=== PATIENT | female | born 1935 | race Caucasian/White ===

== ENCOUNTER 2018-05-11 19:58 | Emergency (ER) | payer MEDICARE, SELFPAY ==
[2018-05-11 20:00] VITALS: BP 112/62; PULSE 56; RESP 18; TEMP 36.5; O2SAT 97; BMI 23.6
[2018-05-11 21:12] VITALS: RESP 16
[2018-05-11 21:13] LABS: Bacteria 0 SEEN /hpf (None Seen); Mucous, Urine 0 SEEN /hpf (<or=2+); Red Blood Cells-Urine 0 SEEN /hpf (0-5)
[2018-05-11 21:32] LABS: Color, Urine Yellow (Yellow); Glucose, Dipstick Normal (Normal); Ketone-Dipstick Negative (Negative); Leukocyte Esterase-Dipstick 500 /ul (Negative); Nitrite-Dipstick Negative (Negative); Occult Blood-Urine Negative /ul (Negative); Protein-Dipstick Negative (Negative); Urine Bilirubin Dipstick Negative (Negative); Urine Urobilinogen Normal (Normal)
--- NOTE | 2018-05-11 21:37 | ED.DCSUM_ITS ---
- ER Visit Summary Date of Service: 05/11/18 Chief Complaint: Dysuria History of Present Illness: The patient is a 82 F who has 2 weeks of dysuria. She states is been intermittent. She denies any abdominal pain but that she has had some frequency intermittently as well. She has no fevers. 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 She sees Dr. Rebollar for this. She is not on dialysis. Physical Examination: Vital signs reviewed. HEENT exam unremarkable. Heart is regular rate and rhythm without murmurs. Lungs are clear to auscultation. Abdomen is soft and nontender. Extremities reveal no edema. Skin exam normal. Neurologic exam normal. Test Results: Urinalysis reveals 2+ leukocytes and 10-25 white blood cells Emergency Department Course and Treatment: Patient appears to have UTI. We treated with Keflex. Urine culture will be sent Treatment Plan: [] Disposition: Discharge Impression: UTI This note was generated with [employer] dictation software. It may contain incorrect words, spelling, and punctuation that were not noted in review of the chart prior to signing ED Disposition - Plan for ED Patient: Chief Complaint: Complaint Referrals: Mike Pat DO [Primary Care Provider] -
[2018-05-11 21:41] LABS: Urine Clarity Sl. Cloudy (Clear)
[2018-05-11 21:43] LABS: Amorphous Sediment 1+ URATE; Squamous Epithelial Cells - UA 0-5 SEEN /hpf (5-10); White Blood Cells 10-25 SEEN /hpf (0-5)
--- NOTE | 2018-05-11 21:50 | ED.DEP ---
ED Disposition - Plan for ED Patient: Disposition: Home or Assisted Living Chief Complaint: Complaint Instructions: ED UTI Cystitis Female Prescriptions: Cephalexin [Keflex] 500 mg PO BID #10 cap Referrals: Mike Pat DO [Primary Care Provider] -
[2018-05-11] MEDS: Cephalexin 250 MG Capsule 500 MG PO (22:01)
[2018-05-11 22:02] VITALS: PULSE 60; RESP 20; O2SAT 96
== END 2018-05-11 22:03 | disposition home or self-care (01) ==
PROVIDERS: Emergency Provider Emergency Medicine; Family Provider Family Medicine; PCP Family Medicine
DX: N39.0 Urinary tract infection, site not specified (principal); I77.6 Arteritis, unspecified; I10 Essential (primary) hypertension; Z79.899 Other long term (current) drug therapy
CPT/HCPCS: 81001; 87086; 87088; 99283

== ENCOUNTER → 2018-05-19 10:32 | Outpatient (CLI) | payer MEDICARE, SELFPAY ==
[2018-05-19 11:10] LABS: Mucous, Urine 0 SEEN /hpf (<or=2+); Red Blood Cells-Urine 0 SEEN /hpf (0-5); Squamous Epithelial Cells - UA 0 SEEN /hpf (5-10)
[2018-05-19 11:15] LABS: Color, Urine Yellow (Yellow); Glucose, Dipstick Normal (Normal); Ketone-Dipstick Negative (Negative); Leukocyte Esterase-Dipstick 25 /ul (Negative); Nitrite-Dipstick Negative (Negative); Occult Blood-Urine Negative /ul (Negative); Protein-Dipstick 15 mg/dl (Negative); Urine Bilirubin Dipstick Negative (Negative); Urine Clarity Sl. Cloudy (Clear); Urine Urobilinogen Normal (Normal); Urine pH 6.5 (5.0 - 8.0)
[2018-05-19 11:24] LABS: Bacteria 1+ /hpf (None Seen); White Blood Cells 0-5 SEEN /hpf (0-5)
== END ==
PROVIDERS: Family Provider Family Medicine; PCP Family Medicine; Visit Provider Nurse Practitioner Family
DX: R30.0 Dysuria (principal); N05.9 Unspecified nephritic syndrome with unspecified morphologic changes
CPT/HCPCS: 81001; 87086; 87088

== ENCOUNTER → 2018-12-05 10:35 | Outpatient (CLI) | payer MEDICARE, SELFPAY ==
[2018-12-05 10:01] VITALS: BMI 21.7
[2018-12-05 12:26] LABS: Absolute Lymphocyte Count 0.72 X10^3/ul (0.83-4.51); Absolute Neutrophil Count 2.9 X10^3/uL (2.0-7.7); Basophil# 0.01 X10^3/uL; Basophil% 0.2 % (0-1); Eosinophil# 0.05 X10^3/uL; Eosinophils% 1.2 % (0-5); Hemoglobin 10.6 g/dl (12.0-15.0); Lymphocyte # 0.72 X10^3/ul (4.0); Lymphocyte % 17.8 % (19-41); Mean Corp Hgb Conc 34.2 g/gl (32-36); Mean Corpuscular Hgb 33.9 pg (27.0-32.0); Mean Platelet Vol. 10.4 fl (6.2-12.0); Monocyte# 0.38 X10^3/uL; Monocyte% 9.4 % (0-10); Neutrophil # 2.87 X10^3/uL (2.7-7.7); Neutrophil % 71.2 % (47-70); Platelet Count 180 K/mm3 (150-450); RBC Distribution Width SD 48.2 fl (35.1-43.9); Red Blood Count 3.13 M/mm3 (4.2-5.4)
[2018-12-05 12:27] LABS: Anion Gap 4 (5-15); BUN 35 mg/dL (7-18); BUN/Creat Ratio 18.7 RATIO (10-20); Calcium,Total 8.8 mg/dL (8.5-10.1); Chloride 108 mmol/L (98-107); Creatinine, Serum 1.87 mg/dL (0.55-1.02); EST Glomerular Filtration Rate 27 mL/min (>60); Est Glom Filt Rate - Afr Amer 33 mL/min (>60); Glucose 104 mg/dL (74-106); POSITIVE COUNT NO; POSITIVE DIFFERENTIAL NO; POSITIVE MORPHOLOGY NO; Potassium 4.7 mmol/L (3.5-5.1); Sodium Level 134 mmol/L (136-145)
== END ==
PROVIDERS: Family Provider Family Medicine; PCP Family Medicine; Visit Provider Family Medicine
DX: I10 Essential (primary) hypertension (principal); N28.9 Disorder of kidney and ureter, unspecified
CPT/HCPCS: 36415; 80048; 85025

== ENCOUNTER 2019-04-02 21:31 | Inpatient (IN) | payer MEDICARE, SELFPAY ==
[2018-12-05 10:01] VITALS: BMI 21.7
[2019-04-02 21:32] VITALS: BP 122/62; PULSE 99; RESP 18; TEMP 36.1; O2SAT 98; BMI 22.3
--- NOTE | 2019-04-02 23:03 | EKG12_ITS ---
Test Reason : Blood Pressure : / mmHG Vent. Rate : 091 BPM Atrial Rate : 091 BPM P-R Int : 166 ms QRS Dur : 072 ms QT Int : 366 ms P-R-T Axes : -09 018 033 degrees QTc Int : 450 ms Sinus rhythm with marked sinus arrhythmia with occasional Premature ventricular complexes Nonspecific ST abnormality Abnormal ECG Confirmed by WALKER OVIEDO, SALLY ([id number]), international editorial producer JUDITH TAYLOR ([id number]) on 04/04/2019 10:14:59 AM Referred By: Jerald Kohli Confirmed By:SALLY CARDOSO MD
--- NOTE | 2019-04-02 23:04 | ED.VISSUMM ---
- ER Visit Summary Date of Service: 04/02/19 Chief Complaint: Abdominal pain History of Present Illness: The patient is a 83 F presenting with abdominal pain. Patient states this started yesterday. She has had nausea and vomiting. She denies diarrhea or constipation. Denies blood in her stool. She denies dysuria but states she has had decreased urination. She denies fever. Denies chest pain or shortness of breath. States she was previously on dialysis and has not had it for 4 years. History of previous appendectomy and hysterectomy. Physical Examination: Vitals are stable. Patient is afebrile. Alert no acute distress. HEENT exam is unremarkable. Neck is supple. Lungs are clear and equal bilaterally. Heart is regular rate and rhythm. Abdomen is soft diffuse tenderness with no rebound or guarding Extremities are unremarkable. Skin is warm and dry. No focal neurologic deficit. Remainder of exam is unremarkable. Emergency Department Course and Treatment: Patient given IV fluids, Zofran. CBC shows hemoglobin 11.5, platelet 133. Chemistries show BUN 54, creatinine 2.95. Previous creatinine 1.87 on December 05. Liver lipase are normal. Troponin is negative. CT abdomen/pelvis shows renal atrophy right greater than left. No hydronephrosis. Old granulomatous disease. Minimal pericardial effusion. Mild gastric wall thickening versus lack of distention. Discussed with the hospitalist for admission. Hospitalist requests Rocephin IV. Urine culture was sent. Disposition: Admission Impression: AIDEN This note was generated with [employer] dictation software. It may contain incorrect words, spelling, and punctuation that were not noted in review of the chart prior to signing ED Disposition - Plan for ED Patient: Referrals: Mike Pat DO [Primary Care Provider] -
[2019-04-02 23:12] LABS: Absolute Lymphocyte Count 0.69 X10^3/uL (0.83-4.51); Absolute Neutrophil Count 8.7 X10^3/uL (2.0-7.7); Basophil# 0.01 X10^3/uL; Basophil% 0.1 % (0-1); Eosinophil# 0.02 X10^3/uL; Eosinophils% 0.2 % (0-5); Hemoglobin 11.5 g/dL (12.0-15.0); Lymphocyte # 0.69 X10^3/ul (4.0); Lymphocyte % 6.6 % (19-41); Mean Corp Hgb Conc 34.8 g/dL (32-36); Mean Corpuscular Hgb 35.2 pg (27.0-32.0); Mean Corpuscular Volume 100.9 fL (81-99); Mean Platelet Vol. 9.8 fl (6.2-12.0); Monocyte# 0.97 X10^3/uL; Monocyte% 9.3 % (0-10); NRBC Flagged by Analyzer 0 % (0-5); Neutrophil # 8.67 X10^3/uL (2.7-7.7); Neutrophil % 83.2 % (47-70); Platelet Count 133 K/mm3 (150-450); RBC Distribution Width CV 14.5 % (11.6-14.6); Red Blood Count 3.27 M/mm3 (4.2-5.4); White Blood Count 10.4 K/mm3 (4.4-11.0)
[2019-04-02] MEDS: Ondansetron 4 MG/2 ML Vial IV (23:15)
[2019-04-02 23:27] LABS: ALB/GLOB Ratio 1.1 RATIO (0.9-2.4); AST(SGOT) 17 U/L (15-37); Alanine Aminotransfer ALT/SGPT 16 U/L (13-56); Albumin, Serum 3.8 g/dL (3.2-5.0); Alkaline Phosphatase 33 U/L (45-117); Anion Gap 11 (5-15); BUN 54 mg/dL (7-18); BUN/Creat Ratio 18.3 RATIO (10-20); Chloride 100 mmol/L (98-107); Creatinine, Serum 2.95 mg/dL (0.55-1.02); EST Glomerular Filtration Rate 16 mL/min (>60); Est Glom Filt Rate - Afr Amer 20 mL/min (>60); Estimated Creatinine Clearance 11.09 ml/min; Globulin 3.6 g/dL (2.2-4.2); Glucose 108 mg/dL (74-106); Lipase 177 U/L (73-393); Potassium 3.9 mmol/L (3.5-5.1); Protein, Total 7.4 g/dL (6.4-8.2); Sodium Level 132 mmol/L (136-145)
[2019-04-03] VITALS (8 sets, daily range): BP systolic 134–158; BP diastolic 71–87; PULSE 61–98; RESP 15–24; TEMP 36.4–37.1; O2SAT 95–100; BMI 20.9
[2019-04-03 00:31] LABS: Bacteria 0 SEEN /hpf (None Seen); Mucous, Urine 0 SEEN /hpf (<or=2+)
[2019-04-03 00:32] LABS: Color, Urine Yellow (Yellow); Glucose, Dipstick Normal (Normal); Ketone-Dipstick Negative (Negative); Leukocyte Esterase-Dipstick 100 /ul (Negative); Nitrite-Dipstick Negative (Negative); Occult Blood-Urine 50 /ul (Negative); Protein-Dipstick 15 mg/dl (Negative); Specific Gravity, Urine 1.015 (1.002-1.030); Urine Bilirubin Dipstick Negative (Negative); Urine Clarity Sl. Cloudy (Clear); Urine Urobilinogen Normal (Normal)
[2019-04-03 00:51] LABS: Squamous Epithelial Cells - UA 0-5 SEEN /hpf (5-10); White Blood Cells 0-5 SEEN /hpf (0-5)
[2019-04-03 00:52] LABS: Red Blood Cells-Urine 0-5 SEEN /hpf (0-5); Transitional Epithelial - Ur 0-5 SEEN /hpf (0-5)
--- NOTE | 2019-04-03 02:19 | PCM.HP.STD ---
Problem List (1) AIDEN (acute kidney injury) Status: Acute (2) Cystitis Status: Acute (3) Acute respiratory failure with hypoxia Status: Resolved (4) s/p rapid response Status: Inactive History of Present Illness Date of Admission: 04/03/19 Chief Complaint: abdominal pain The patient is a 83 year old F with a significant history of glomera nephritis; and CKD who presented to the emergency department with 1 day history of abdominal pain. She describes abdominal pain as diffuse. She currently rates this pain as aching. The pain is nonradiating. The pain worsens with walking and it improves with lying down. Associated with symptoms is nausea, vomiting and anorexia. Also she reports increased fluid intake with decreased urination. Past Medical History Past Medical History (Chronic Problems): Chronic Problems (Last Reviewed 04/03/19 @ 06:55 by Jerald Kohli MD) Left-sided tinnitus (Chronic) Vertigo (Chronic) Anxiety (Chronic) Hypertension (Chronic) Kidney disease (Chronic) Hypertension (Chronic) Glomerulonephritis (Chronic) Medical History: Medical History (Last Reviewed 04/03/19 @ 06:58 by Jerald Kohli MD) Anxiety (Chronic) F41.9 Hypertension (Chronic) I10 Kidney disease (Chronic) N28.9 Allergies Tetanus Vaccines and Toxoid [Tetanus Vaccines & Toxoid] Allergy (Verified 04/02/19 21:32) Unknown HORSE SERUM TETNUS Home Medications: Ambulatory Orders Medication Instructions Recorded sertraline 50 mg tablet 75 mg PO DAILY #90 tab 12/05/18 Azathioprine [Imuran] 50 mg PO DAILY@0800 04/02/19 Liothyronine/Levothyroxin 1 tab PO DAILY 04/02/19 Metoprolol Tartrate [Lopressor 25 mg PO DAILY PRN 04/02/19 (beta po)] Pantoprazole Sodium [Protonix] 40 mg PO DAILY 04/02/19 Prasterone (Dhea)/Calcium Carb 10 mg PO DAILY 04/02/19 [Dhea 10 mg Tablet] Surgical History: Surgical History (Last Reviewed 04/03/19 @ 06:55 by Jerald Kohli MD) History of hysterectomy Z90.710 2014 Surgical History: hysterectomy, - - renal bx 02/2014 Psychiatric History: No pertinent psych hx [employer]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 Denies: Chills, Fever, Weight Change HEENT: Denies: Head Aches, Sinus Congestion, Sinus Drainage Cardiovascular: Denies: Chest Pain, Palpitations Respiratory: Denies: Cough, Shortness of breath at rest, Sputum production Gastrointestinal: Reports: Abdominal Pain, Nausea, Vomiting Genitourinary: Reports: Frequency - Decrease frequency of urination/urinary amount.. Denies: Dysuria Musculoskeletal: Denies: Joint Pain, Joint Tenderness Skin: Denies: Rash, Wounds Neurological: Denies: Numbness, Tingling, Focal weakness Psychiatric: Denies: Anxiety, Depression, Homicidal Ideations, Suicidal Ideations Hematologic/ Lymphatic: Denies: Easy Bruising, Easy Bleeding VTE Information - Inpt Only VTE Present on Admission: No VTE Mechan Device Prophylaxis: SCD's VTE Pharm Prophylaxis ordered?: Yes Patient Problems: Active and Suspected Problems (Last Reviewed 04/03/19 @ 06:55 by Jerald Kohli MD) AIDEN (acute kidney injury) (Acute) Cystitis (Acute) - Physical Exam General: Alert, Oriented x3, Cooperative HEENT: Atraumatic, PERRLA, EOMI, Normocephalic Neck: Supple, No JVD, Negative Carotid Bruits Lungs: Clear to auscultation, Normal air movement Cardiovascular: Regular rate, No murmurs Abdomen: Bowel Sounds Present, Soft, Tender Extremities: No edema, Capillary Refill Less than 3 Seconds Skin: No rashes, No breakdown Musculoskeletal: No Tenderness to Palpation of Joints or Extremities Neurological: Cranial nerves II-XII grossly intact Psych/Mental Status: Normal Affect, Appropriate Vital Signs Temp Pulse Resp BP Pulse Ox 97.5 F L 61 15 134/71 H 100 04/03/19 02:05 04/03/19 02:05 04/03/19 02:05 04/03/19 02:05 04/03/19 02:05 Oxygen Delivery Method Room Air Weight: 53.524 kg Body Mass Index (BMI) 22.3 Finger Stick Blood Glucose 130 Laboratory Tests Past 24 Hrs 04/02/19 04/02/19 04/03/19 22:25 22:25 00:20 WBC 10.4 RBC 3.27 L Hgb 11.5 L Hct 33.0 L MCV 100.9 H MCH 35.2 H MCHC 34.8 RDW Std Deviation 54.0 H RDW Coeff of Obey 14.5 Plt Count 133 L MPV 9.8 Immature Gran % (Auto) 0.600 Neut % (Auto) 83.2 H Lymph % (Auto) 6.6 L [place] % (Auto) 9.3 Eos % (Auto) 0.2 Baso % (Auto) 0.1 Absolute Neuts (auto) 8.7 H Absolute Lymphs (auto) 0.69 L Nucleated RBC % 0 Sodium 132 L Potassium 3.9 Chloride 100 Carbon Dioxide 21.0 Anion Gap 11 BUN 54 H Creatinine 2.95 H Estim Creat Clear Calc 11.09 Est GFR (MDRD) Af Amer 20 L Est GFR (MDRD) Non-Af 16 L BUN/Creatinine Ratio 18.3 Glucose 108 H Calcium 9.0 Total Bilirubin 0.70 AST 17 ALT 16 Alkaline Phosphatase 33 L Troponin I < 0.015 Total Protein 7.4 Albumin 3.8 Globulin 3.6 Albumin/Globulin Ratio 1.1 Lipase 177 Urine Color Yellow Urine Clarity Sl. Cloudy Urine pH 6.0 Ur Specific [place] 1.015 Urine Protein 15 H Urine Glucose (UA) Normal Urine Ketones Negative Urine Occult Blood 50 H Urine Nitrite Negative Urine Bilirubin Negative Urine Urobilinogen Normal Ur Leukocyte Esterase 100 H Urine RBC 0-5 SEEN Urine WBC 0-5 SEEN Ur Squamous Epith Cells 0-5 SEEN Ur Transition Epith Cell 0-5 SEEN Urine Bacteria 0 SEEN Urine Mucus 0 SEEN Assessment/Plan All Active Problems (Last Reviewed 04/03/19 @ 06:55 by Jerald Kohli MD) AIDEN (acute kidney injury) (Acute) Cystitis (Acute) Acute renal failure syndrome (Acute) Acute respiratory failure with hypoxia (Resolved) The patient is a 83 year old F with a significant history of glomera nephritis; and CKD who presented to the emergency department with abdominal pain; decreased urination; nausea and vomiting with abnormal urinalysis consistent with probable acute cystitis. Probable acute cystitis Different diagnoses include gastroenteritis. Urinalysis was positive for occult blood; leukocyte esterase and protein. Importantly nitrite was negative; and urine bacteria was not seen. Of note patient has CKD. However because of the patient's abdominal symptoms discussed emergency department doctor to start patient on Rocephin. We will continue Rocephin. Urine cultures are pending. AIDEN on CKD Admission her creatinine was 2.95 Last creatinine about 4 months ago was 1.87. BUN over creatinine is 18.3. Likely prerenal from dehydration secondary to vomiting. However cannot rule out AIDEN secondary to UTI. Received IV fluids in the emergency department. We will continue patient on IV fluids. CKD with history of glomerulonephritis Azathioprine continued. Pericardial effusion Per imaging Mild with no symptoms Hypertension On presentation her blood pressure was stable in regard to age Metoprolol continue Trend blood pressure and adjust blood pressure medications. Hypothyroidism Thyroid medication continued GERD Protonix continued DVT prophylaxis Subcutaneous heparin ordered Code Visit Inpatient E&M: 35716 Init Hosp L3
[2019-04-03] MEDS: Ceftriaxone 1 GM/50 ML BAG IV ×2 (02:35→21:18)
[2019-04-03] MEDS: Acetaminophen 325 MG Tablet 650 MG PO (03:38)
[2019-04-03] MEDS: 0.9% Normal Saline 1,000 ML 75 ML IV (03:39)
[2019-04-03] MEDS: THYROID 90 MG PO (06:08)
[2019-04-03 06:42] LABS: Anion Gap 11 (5-15); BUN 46 mg/dL (7-18); BUN/Creat Ratio 19.1 RATIO (10-20); Calcium,Total 8.3 mg/dL (8.5-10.1); Chloride 105 mmol/L (98-107); Creatinine, Serum 2.41 mg/dL (0.55-1.02); EST Glomerular Filtration Rate 20 mL/min (>60); Est Glom Filt Rate - Afr Amer 25 mL/min (>60); Estimated Creatinine Clearance 14.23 ml/min; Glucose 82 mg/dL (74-106); Potassium 3.6 mmol/L (3.5-5.1); Sodium Level 137 mmol/L (136-145)
[2019-04-03] MEDS: Sertraline 50 MG Tablet 75 MG PO (08:09)
[2019-04-03] MEDS: Pantoprazole Sodium 40 MG Tablet PO (08:09)
[2019-04-03] MEDS: Heparin Injection (Vial) 5,000 UNIT/ML VIAL 5000 UNIT SC ×2 (08:09→21:24)
[2019-04-03] MEDS: azaTHIOprine 50 MG Tablet PO (08:10)
--- NOTE | 2019-04-03 10:58 | CASEMGMT ---
RN CM Assessment Presentation: AIDEN, cystitis Intro role of CM and purpose of RN CM assessment to patient who is awake, alert and able to participate in assessment. Demographics, PCP and Pharmacy verified. Pt states she is independent at home, does not use ambulatory DME and cares for self. She is anxious to return home. RN CM discussed pt will need treatment continued through tomorrow due to awaiting cultures. No concerns re: dc planning. PCP: Dr. Mike Pat Specialists: Dr. Ana Rebollar, nephrology Preferred Pharmacy: [facility] Insurance: [facility] Prescription Benefit: yes LNOK: Son Luis Rosales Living Arrangements: Lives in one story home independently. States her sons are available to assist. Pt states she is independent with ADL's, cooking. Transportation: Family drives DME: denies using ambulatory devices, but has walker, cane from her who is . HHC: none Patient DC goals: Home with family support DC PLAN: Home. Juan BARFIELD RN ACM
--- NOTE | 2019-04-03 16:08 | PCM.PN.HOSP ---
Patient Problems: Active and Suspected Problems (Last Reviewed 04/03/19 @ 06:58 by Jerald Kohli MD) AIDEN (acute kidney injury) (Acute) Cystitis (Acute) Subjective: Doing well, pain is much improved Vitals/I&O's: Vital Signs Temp Pulse Resp BP Pulse Ox 97.7 F L 93 18 158/87 H 99 04/03/19 14:07 04/03/19 14:07 04/03/19 14:07 04/03/19 14:07 04/03/19 14:07 Oxygen Delivery Method Room Air Weight: 114 lb 3.191 oz Body Mass Index (BMI) 20.9 Finger Stick Blood Glucose 130 Intake and Output for Last 24 Hours 04/01/19 04/02/19 04/03/19 23:59 23:59 23:59 Intake Total 1218 / 1218 Output Total 800 / 800 Balance 418 / 418 General: Alert, Oriented x3, Cooperative, No apparent distress HEENT: Atraumatic, PERRLA, EOMI, Normocephalic Oral: Moist Mucosa Neck: Supple, No JVD Lungs: Clear to auscultation, Normal air movement, No rhonchi, No wheeze, No rales, Diminished Cardiovascular: Regular rate, Regular Rhythm, Normal S1, Normal S2, No murmurs Abdomen: Soft, Non-Distended, No Hepato-splenomegaly, Tender - Mild and bilateral lower quadrant Extremities: No edema, Capillary Refill Less than 3 Seconds Skin: No rashes, No breakdown Neurological: Neuro grossly intact, Sensory exam intact to light touch and pain Psych/Mental Status: Normal Affect, Appropriate Laboratory Results 04/02/19 22:25: WBC 10.4, RBC 3.27 L, Hgb 11.5 L, Hct 33.0 L, MCV 100.9 H, MCH 35.2 H, MCHC 34.8, RDW Std Deviation 54.0 H, RDW Coeff of Obey 14.5, Plt Count 133 L, MPV 9.8, Immature Gran % (Auto) 0.600, Neut % (Auto) 83.2 H, Lymph % (Auto) 6.6 L, [place] % (Auto) 9.3, Eos % (Auto) 0.2, Baso % (Auto) 0.1, Absolute Neuts (auto) 8.7 H, Absolute Lymphs (auto) 0.69 L, Nucleated RBC % 0 04/02/19 22:25: Sodium 132 L, Potassium 3.9, Chloride 100, Carbon Dioxide 21.0, Anion Gap 11, BUN 54 H, Creatinine 2.95 H, Estim Creat Clear Calc 11.09, Est GFR (MDRD) Af Amer 20 L, Est GFR (MDRD) Non-Af 16 L, BUN/Creatinine Ratio 18.3, Glucose 108 H, Calcium 9.0, Total Bilirubin 0.70, AST 17, ALT 16, Alkaline Phosphatase 33 L, Troponin I < 0.015, Total Protein 7.4, Albumin 3.8, Globulin 3.6, Albumin/Globulin Ratio 1.1, Lipase 177 04/03/19 00:20: Urine Color Yellow, Urine Clarity Sl. Cloudy, Urine pH 6.0, Ur Specific [place] 1.015, Urine Protein 15 H, Urine Glucose (UA) Normal, Urine Ketones Negative, Urine Occult Blood 50 H, Urine Nitrite Negative, Urine Bilirubin Negative, Urine Urobilinogen Normal, Ur Leukocyte Esterase 100 H, Urine RBC 0-5 SEEN, Urine WBC 0-5 SEEN, Ur Squamous Epith Cells 0-5 SEEN, Ur Transition Epith Cell 0-5 SEEN, Urine Bacteria 0 SEEN, Urine Mucus 0 SEEN 04/03/19 05:50: Sodium 137, Potassium 3.6, Chloride 105, Carbon Dioxide 21.0, Anion Gap 11, BUN 46 H, Creatinine 2.41 H, Estim Creat Clear Calc 14.23, Est GFR (MDRD) Af Amer 25 L, Est GFR (MDRD) Non-Af 20 L, BUN/Creatinine Ratio 19.1, Glucose 82, Calcium 8.3 L Current Medications Acetaminophen (Tylenol) 650 mg PO Q6H PRN PRN PRN Reason: Mild Pain (1-3)/Temp > 100.7 F Last Admin: 04/03/19 03:38 Dose: 650 mg Documented by: Azathioprine (Imuran) 50 mg PO DAILY@0800 [facility] Last Admin: 04/03/19 08:10 Dose: 50 mg Documented by: Dextrose (D50w Syringe) 0 gm IV X1 PRN; Protocol PRN Reason: Hypoglycemia Glucagon () 1 mg IM .X1 PRN PRN Reason: Hypoglycemia Heparin Sodium (Porcine) (Heparin Na) 5,000 unit SC Q12 [facility] Last Admin: 04/03/19 08:09 Dose: 5,000 unit Documented by: Sodium Chloride () 1,000 mls @ 75 mls/hr IV .[id number] [facility] Stop: 04/03/19 16:17 Last Admin: 04/03/19 03:39 Dose: 75 mls/hr Documented by: Ceftriaxone Sodium (Rocephin) 1 gm in 50 mls @ 100 mls/hr IV Q24H [facility] Metoprolol Tartrate (Lopressor (Beta Kailash)) 25 mg PO DAILY PRN PRN Reason: HEADACHE Morphine Sulfate () 2 mg IV Q3H PRN PRN PRN Reason: Severe pain (7-10/10) Nutritional Formula (Lactose Free) (Ensure Enlive) 120 ml PO 4X/DAY [facility] Last Admin: 04/03/19 13:57 Dose: Not Given Documented by: Ondansetron HCl (Zofran) 4 mg IV Q8H PRN PRN PRN Reason: NAUSEA/VOMITING Oxycodone HCl (Oxyir) 5 mg PO Q4H PRN PRN PRN Reason: Moderate Pain (4-6/10) Pantoprazole Sodium (Protonix) 40 mg PO DAILY [facility] Last Admin: 04/03/19 08:09 Dose: 40 mg Documented by: Sertraline HCl (Zoloft) 75 mg PO DAILY [facility] Last Admin: 04/03/19 08:09 Dose: 75 mg Documented by: Sodium Chloride () 10 - 40 ml IV UD PRN PRN Reason: SALINE FLUSH Thyroid 30 mg/ Thyroid 60 mg 90 mg PO DAILY@0600 [facility] Last Admin: 04/03/19 06:08 Dose: 90 mg Documented by: Medical Necessity - Tobacco Use Smoking Status: Never smoker Assessment/Plan All Active Problems (Last Reviewed 04/03/19 @ 06:58 by Jerald Kohli MD) AIDEN (acute kidney injury) (Acute) Cystitis (Acute) Acute renal failure syndrome (Acute) Acute respiratory failure with hypoxia (Resolved) 1. Gastritis -She states that she ate cereal with him Tuesday and then 2 hours later through Tuesday she was having cramping abdominal pain that did improve a little bit with bowel movements on Tuesday which she had to have. She states that her pain is a lot better today -She ate breakfast and lunch today and did okay -Unlikely to be a UTI since she has had them in the past and they have always burned with urination and she does not have any dysuria currently -We will continue Rocephin for now and await urine cultures -She is feeling much better we will plan on discharge tomorrow 2. 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 HTN -Blood pressure stable -Continue with metoprolol 4. GERD -Stable -Continue with PPI 5. Anxiety/depression -Stable -Continue with Zoloft 6. Hypothyroidism -Stable -Continue with home medications DVT: Heparin
--- NOTE | 2019-04-03 23:03 | CT_ITS ---
STUDY: CT ABDOMEN AND PELVIS WITHOUT CONTRAST REASON FOR EXAM: Female, 83 years old. Decreased urination. Renal problems. RADIATION DOSAGE (If Supplied By Facility): CTDIvol = ( 6.04 ) mGy, DLP = ( 344.51 ) mGycm TECHNIQUE: Transaxial images were obtained from the dome of the diaphragm to the symphysis pubis with oral contrast, and without intravenous contrast. Sagittal and coronal images were reconstructed. Individualized dose optimization techniques were used for this CT. COMPARISON: October 28, 2014. FINDINGS: Densely calcified right lower lobe lung nodule. The heart is not enlarged. Minimal pericardial effusion. Recently noted nodule within the left pericardial fat is no longer visualized. Normal liver. Normal gallbladder and extrahepatic biliary system. There are multiple benign calcified granulomata of the spleen. Normal pancreas. Normal bilateral adrenal glands. There is now bilateral renal atrophy moderate on the right and mild on the left. No significant atherosclerotic calcification of the renal arteries. Mild thickening of the gastric wall versus lack of distention. Normal small intestine. Fluid-filled nondilated loops of colon. There is non-visualization of the appendix with appendectomy.. Normal abdominal aorta. Normal inferior vena cava. Normal retroperitoneum. No intra-abdominal free air. Normal urinary bladder. Uterus absent compatible with hysterectomy. No adnexal masses seen. Normal abdominal wall. Multilevel degenerative changes of the lumbar spine. CT/Abdomen/Pel W ORAL Cont Only IMPRESSION: Renal atrophy right greater than left. No hydronephrosis. Old granulomatous disease. Minimal pericardial effusion. Mild gastric wall thickening versus lack of distention. Electronically Signed: Shamar Plaza MD at 1:58 EDT , Service support ,
[2019-04-04] MEDS: 0.9% NaCl Peripheral Flush Adult/Peds IV (02:57)
[2019-04-04 03:02] VITALS: BP 130/75; PULSE 72; RESP 16; TEMP 36.8; O2SAT 97
[2019-04-04] MEDS: THYROID 90 MG PO (05:46)
[2019-04-04 05:57] LABS: Absolute Lymphocyte Count 0.46 X10^3/uL (0.83-4.51); Absolute Neutrophil Count 3.4 X10^3/uL (2.0-7.7); Basophil# 0.02 X10^3/uL; Basophil% 0.4 % (0-1); Eosinophil# 0.19 X10^3/uL; Hematocrit 29.6 % (37-47); Hemoglobin 10.1 g/dL (12.0-15.0); Lymphocyte # 0.46 X10^3/ul (4.0); Lymphocyte % 9.8 % (19-41); Mean Corp Hgb Conc 34.1 g/dL (32-36); Mean Corpuscular Hgb 34.4 pg (27.0-32.0); Mean Corpuscular Volume 100.7 fL (81-99); Mean Platelet Vol. 9.9 fl (6.2-12.0); Monocyte# 0.58 X10^3/uL; Monocyte% 12.3 % (0-10); NRBC Flagged by Analyzer 0 % (0-5); Neutrophil # 3.44 X10^3/uL (2.7-7.7); Neutrophil % 73.1 % (47-70); POSITIVE DIFFERENTIAL YES; Platelet Count 128 K/mm3 (150-450); RBC Distribution Width CV 14.7 % (11.6-14.6); RBC Distribution Width SD 54.4 fl (35.1-43.9); Red Blood Count 2.94 M/mm3 (4.2-5.4); White Blood Count 4.7 K/mm3 (4.4-11.0)
[2019-04-04 06:02] LABS: Differential Indicated SCAN CRITERIA MET
[2019-04-04 06:18] LABS: Anion Gap 7 (5-15); BUN 34 mg/dL (7-18); BUN/Creat Ratio 18.8 RATIO (10-20); Calcium,Total 8.7 mg/dL (8.5-10.1); Chloride 106 mmol/L (98-107); Creatinine, Serum 1.81 mg/dL (0.55-1.02); EST Glomerular Filtration Rate 28 mL/min (>60); Est Glom Filt Rate - Afr Amer 34 mL/min (>60); Estimated Creatinine Clearance 18.95 ml/min; Glucose 92 mg/dL (74-106); Sodium Level 137 mmol/L (136-145)
[2019-04-04 06:43] LABS: Acanthocytes RARE; Differential Comment SCANNED; Macrocytosis 1+; Target Cells RARE
[2019-04-04 07:08] VITALS: O2SAT 96
--- NOTE | 2019-04-04 07:54 | DCINST_ITS ---
- Discharge Diagnoses Current Active Problems: Current Active and Chronic Problems (Last Reviewed 04/03/19 @ 06:58 by Jerald Kohli MD) AIDEN (acute kidney injury) (Acute) Cystitis (Acute) You will use the following diet at home:: Regular Your food should be the consistency of: Regular Discharge Activity: Return to Normal Activity, No Restrictions Call your doctor if you observe: Fever of 101 or Higher, Shortness of breath, Dizziness, Fainting spells, Swelling in the ankles, Chest pain, Increased palpitations (irregular heartbeat) Allergies/Adverse Reactions: Allergies Tetanus Vaccines and Toxoid [Tetanus Vaccines & Toxoid] Allergy (Verified 04/03/19 03:00) Unknown HORSE SERUM TETANUS Medications to take at Discharge sertraline 50 mg tablet 75 mg PO DAILY #90 tab 12/05/18 Azathioprine [Imuran] 50 mg PO DAILY@0800 04/02/19 Liothyronine/Levothyroxin 1 tab PO DAILY 04/02/19 Metoprolol Tartrate [Lopressor (beta po)] 25 mg PO DAILY PRN 04/02/19 Pantoprazole Sodium [Protonix] 40 mg PO DAILY 04/02/19 Prasterone (Dhea)/Calcium Carb [Dhea 10 mg Tablet] 10 mg PO DAILY 04/02/19 Primary Care Physician: Mike Pat DO [Primary Care Provider] - Please follow up with your Primary Care Physician in: 3-5 days Test Results: Test results from this visit will be discussed in further detail at your follow- up appointment, if applicable.
--- NOTE | 2019-04-04 07:56 | DS.PCM_ITS ---
Discharge Date and Diagnosis - Problem List Patient Problems: Active and Suspected Problems (Last Reviewed 04/03/19 @ 06:58 by Jerald Kohli MD) AIDEN (acute kidney injury) (Acute) Cystitis (Acute) Date of Admission: 04/03/19 Date of Discharge: 04/04/19 - Primary Discharge Diagnosis Active and Suspected Problems (Last Reviewed 04/03/19 @ 06:58 by Jerald Kohli MD) AIDEN (acute kidney injury) (Acute) Cystitis (Acute) - Secondary Discharge Diagnosis Chronic Problems (Last Reviewed 04/03/19 @ 06:58 by Jerald Kohli MD) Left-sided tinnitus (Chronic) Vertigo (Chronic) Anxiety (Chronic) Hypertension (Chronic) Kidney disease (Chronic) Hypertension (Chronic) Glomerulonephritis (Chronic) Hospital Course and Treatment Imaging Results: CT Abd/pelvis:IMPRESSION: Renal atrophy right greater than left. No hydronephrosis. Old granulomatous disease. Minimal pericardial effusion. Mild gastric wall thickening versus lack of distention. Consults: None Operations: None Procedures: None Summary of Care Provided: Per HPI: The patient is a 83 year old F with a significant history of glomera nephritis; and CKD who presented to the emergency department with 1 day history of abdominal pain. She describes abdominal pain as diffuse. She currently rates this pain as aching. The pain is nonradiating. The pain worsens with walking and it improves with lying down. Associated with symptoms is nausea, vomiting and anorexia. Also she reports increased fluid intake with decreased urination. Hospital Course: 1. Gastritis with abdominal [id number]-old female who presented with abdominal pain, nausea, and vomiting. She states this started on Tuesday when she ate cereal with hemp seeds. Since then she has improved significantly after having multiple bowel movements and she says that the cramping abdominal pain has basically resolved today. She would like to go home. I discussed with her that if she has any intense pain, or fevers, that she is to return back to the ER. She is stable for discharge as has good as her creatinine has improved and her white blood cell count has been stable, as have her vital signs. She is to follow-up with her primary care doctor in 3 to 5 days. 2. UTI-she states usually with her UTIs she has a burning sensation on urination, her UA was unremarkable for urinary tract infection but she did receive a dose of Rocephin yesterday morning. We will plan on discharging her without any antibiotics but I will follow the mostly and if an organism does grow then can provide her with antibiotics as an outpatient. 3. Hypothyroidism-she is maintained on a combination of the both levothyroxin/liothyronine, and her last TSH was in 2013 and it was normal, she will likely need to have a repeat thyroid studies as an outpatient if she has not had any recently. 4. Her other medical diagnoses were evaluated and her home medications were continued where appropriate. Patient Problems: Active and Suspected Problems (Last Reviewed 04/03/19 @ 06:58 by Jerald Kohli MD) AIDEN (acute kidney injury) (Acute) Cystitis (Acute) Objective: General: Alert, Oriented x3, Cooperative, No apparent distress HEENT: Atraumatic, PERRLA, EOMI, Normocephalic Oral: Moist Mucosa Neck: Supple, No JVD Lungs: Clear to auscultation, Normal air movement, No rhonchi, No wheeze, No ral es, Diminished Cardiovascular: Regular rate, Regular Rhythm, Normal S1, Normal S2, No murmurs Abdomen: Soft, Non-Distended, No Hepato-splenomegaly, Tender - Mild and bilateral lower quadrant Extremities: No edema, Capillary Refill Less than 3 Seconds Skin: No rashes, No breakdown Neurological: Neuro grossly intact, Sensory exam intact to light touch and pain Psych/Mental Status: Normal Affect, Appropriate - Physical Exam Vital Signs Temp Pulse Resp BP Pulse Ox 98.2 F 72 16 130/75 H 97 04/04/19 03:02 04/04/19 03:02 04/04/19 03:02 04/04/19 03:02 04/04/19 03:02 Oxygen Delivery Method Room Air Weight: 114 lb 3.191 oz Body Mass Index (BMI) 20.9 Finger Stick Blood Glucose 130 Intake and Output for Last 24 Hours 04/02/19 04/03/19 04/04/19 23:59 23:59 23:59 Intake Total 2182 / 2182 150 / 150 Output Total 800 / 800 Balance 1382 / 1382 150 / 150 Laboratory Tests Past 24 Hrs 04/04/19 04/04/19 05:24 05:24 WBC 4.7 RBC 2.94 L Hgb 10.1 L Hct 29.6 L MCV 100.7 H MCH 34.4 H MCHC 34.1 RDW Std Deviation 54.4 H RDW Coeff of Obey 14.7 H Plt Count 128 L MPV 9.9 Immature Gran % (Auto) 0.400 Neut % (Auto) 73.1 H Lymph % (Auto) 9.8 L [place] % (Auto) 12.3 H Eos % (Auto) 4.0 Baso % (Auto) 0.4 Absolute Neuts (auto) 3.4 Absolute Lymphs (auto) 0.46 L Nucleated RBC % 0 Differential Comment SCANNED Macrocytosis 1+ Target Cells RARE Acanthocytes (Spur) RARE Sodium 137 Potassium 4.0 Chloride 106 Carbon Dioxide 24.0 Anion Gap 7 BUN 34 H Creatinine 1.81 H Estim Creat Clear Calc 18.95 Est GFR (MDRD) Af Amer 34 L Est GFR (MDRD) Non-Af 28 L BUN/Creatinine Ratio 18.8 Glucose 92 Calcium 8.7 Discharge Activity: Return to Normal Activity, No Restrictions Call your doctor if you observe: Fever of 101 or Higher, Shortness of breath, Dizziness, Fainting spells, Swelling in the ankles, Chest pain, Increased palpitations (irregular heartbeat) Home Medications: Medications to take at Discharge sertraline 50 mg tablet 75 mg PO DAILY #90 tab 12/05/18 Azathioprine [Imuran] 50 mg PO DAILY@0800 04/02/19 Liothyronine/Levothyroxin 1 tab PO DAILY 04/02/19 Metoprolol Tartrate [Lopressor (beta po)] 25 mg PO DAILY PRN 04/02/19 Pantoprazole Sodium [Protonix] 40 mg PO DAILY 04/02/19 Prasterone (Dhea)/Calcium Carb [Dhea 10 mg Tablet] 10 mg PO DAILY 04/02/19 Primary Care Physician: Mike Pat DO [Primary Care Provider] - Please follow up with your Primary Care Physician in: 3-5 days Disposition: Home Minutes spent on discharge:: 35 Patient Condition:: Good Medical Necessity - Tobacco Use Smoking Status: Never smoker Meaningful Use Info Meaningful Use Diagnoses (Choose all that apply): None applicable Code Visit Inpatient E&M: 13088 Disch Hosp
[2019-04-04 08:26] VITALS: BP 124/69; PULSE 78; RESP 18; TEMP 36.6; O2SAT 99
[2019-04-04] MEDS: Pantoprazole Sodium 40 MG Tablet PO (08:29)
[2019-04-04] MEDS: Sertraline 50 MG Tablet 75 MG PO (08:29)
[2019-04-04] MEDS: azaTHIOprine 50 MG Tablet PO (08:30)
--- NOTE | 2019-04-05 12:18 | CASEMGMT ---
COBY PHILLIPS DC PHONE CALL DC DATE: 04/04/19 DC Disposition: Home Diagnosis on Discharge: AIDEN, cystitis LACE/STRATA: 05/01 Introduced role of CM to pt via phone. Pt states she is doing fine and does not have questions re: instructions, medications or follow up. COBY PHILLIPS inquired re: making f/u appointment. Pt had not made appointment yet, does not need assistance with this. No care improvement suggestions were given. Juan ASHFORDN RN AC
== END 2019-04-04 11:15 | disposition home or self-care (01) | DRG 392 ==
LOC: ED 22:46 → MS3 04-03 03:10
PROVIDERS: Admitting Provider Hospitalist; Emergency Provider Emergency Medicine; Family Provider Family Medicine; PCP Family Medicine; Referring Provider Hospitalist; Visit Provider Family Medicine
DX: K29.70 Gastritis, unspecified, without bleeding (principal); N17.9 Acute kidney failure, unspecified; N18.4 Chronic kidney disease, stage 4 (severe); I31.3 Pericardial effusion (noninflammatory); E03.9 Hypothyroidism, unspecified; K21.9 Gastro-esophageal reflux disease without esophagitis; F41.9 Anxiety disorder, unspecified; I12.9 Hypertensive chronic kidney disease with stage 1 through stage 4 chronic kidney disease, or unspecified chronic kidney disease
CPT/HCPCS: 36415; 74176; 80048; 80053; 81001; 83690; 84484; 85025; 87086; 87088; 93005; 97161; 97166; 97802; 99285; J7030; J7040; J7050; A4216; J2405

== ENCOUNTER → 2019-10-17 10:57 | Outpatient (CLI) | payer MEDICARE, SELFPAY ==
[2019-06-05 09:38] VITALS: BMI 21.0
[2019-10-17 12:32] LABS: Hematocrit 32.8 % (37-47); Hemoglobin 10.8 g/dL (12.0-15.0); Mean Corp Hgb Conc 32.9 g/dL (32-36); Mean Corpuscular Hgb 33.8 pg (27.0-32.0); Mean Corpuscular Volume 102.5 fL (81-99); Mean Platelet Vol. 10.3 fl (6.2-12.0); Platelet Count 146 K/mm3 (150-450); RBC Distribution Width CV 14.1 % (11.6-14.6); RBC Distribution Width SD 53.4 fl (35.1-43.9); White Blood Count 3.6 K/mm3 (4.4-11.0)
[2019-10-17 12:50] LABS: Vitamin D,25 Hydroxy 116.6 ng/mL (29.95-100.01)
[2019-10-17 12:52] LABS: Albumin, Serum 3.5 g/dL (3.2-5.0); BUN 30 mg/dL (7-18); BUN/Creat Ratio 15.8 RATIO (10-20); Chloride 102 mmol/L (98-107); EST Glomerular Filtration Rate 27 mL/min (>60); Est Glom Filt Rate - Afr Amer 33 mL/min (>60); Glucose 99 mg/dL (74-106); Phosphorus 3.3 mg/dL (2.5-4.9); Potassium 4.3 mmol/L (3.5-5.1); Sodium Level 136 mmol/L (136-145)
== END ==
PROVIDERS: PCP Family Medicine; Visit Provider Internal Medicine Nephrology
DX: N18.4 Chronic kidney disease, stage 4 (severe) (principal); E55.9 Vitamin D deficiency, unspecified
CPT/HCPCS: 36415; 80069; 82306; 83970; 85027

== ENCOUNTER 2020-09-15 11:07 | Inpatient (IN) | payer MEDICARE, SELFPAY ==
[2019-12-05 08:46] VITALS: BMI 21.0
[2020-09-15] VITALS (13 sets, daily range): BP systolic 128–173; BP diastolic 52–83; PULSE 79–111; RESP 17–24; TEMP 35.3–37.1; O2SAT 94–99; BMI 30.2; BMI 24.7
--- NOTE | 2020-09-15 11:20 | US_ITS ---
STUDY: ABDOMINAL ULTRASOUND - RIGHT UPPER QUADRANT REASON FOR VISIT: Female, 84 years old RT ABD AND CHEST PAIN TECHNIQUE: Ultrasound evaluation of the right upper quadrant was performed with real-time and static pérez-scale imaging. TECHNICAL QUALITY: Adequate. COMPARISON: Comparison is made with prior study dated 03/06/2014. FINDINGS: Liver: The liver measures 15.4 cm. There is normal echogenicity of the liver. The bile ducts are within normal limits. There is hepatic color flow. The direction of portal flow is hepatopetal. There is no demonstrated mass lesion. Small amount of perihepatic fluid. Gallbladder: Normal distended gallbladder. The gallbladder wall measures 2.4 mm. There is a negative sonographic Barber''s sign. There is no pericholecystic fluid. There are no gallstones. Common Bile Duct (C.B.D.): The common bile duct measures 2.6 mm. Pancreas: Normal size of the head, body and tail of the pancreas. There is increased echogenicity of the pancreas. There is no demonstrated pancreatic mass or cyst. Right Kidney: There is atrophy of the right kidney. The right kidney measures 8.7 cm x 3.4 cm x 4.1 cm. Normal renal cortex. The right cortex measures 1.0 cm. There is no demonstrated renal mass or cyst. There is no right hydronephrosis. US/Abdomen Limited IMPRESSION: Small amount of perihepatic fluid. Mild right renal atrophy. Electronically Signed: Brayan Khan MD at 13:54 EST , Service support ,
--- NOTE | 2020-09-15 11:20 | EKG12_ITS ---
Test Reason : SOB Blood Pressure : / mmHG Vent. Rate : 080 BPM Atrial Rate : 080 BPM P-R Int : 160 ms QRS Dur : 082 ms QT Int : 372 ms P-R-T Axes : 029 -05 004 degrees QTc Int : 429 ms Normal sinus rhythm Possible Left atrial enlargement Inferior infarct , age undetermined , cannot be excluded Abnormal ECG Confirmed by WALKER OVIEDO, SALLY ([id number]), dictionary editor LEIA LARSON ([id number] on 09/17/2020 7:53:30 AM Referred By: Confirmed By:SALLY CARDOSO MD
--- NOTE | 2020-09-15 11:42 | RAD_ITS ---
STUDY: X-RAY CHEST REASON FOR EXAM: Female, 84 years old. SOB AND COUGH, PAIN TO LOWER RIGHT CHEST TECHNIQUE: Single AP portable view of the chest. COMPARISON: Comparison is made with prior study dated 03/22/2014. FINDINGS: Small right pleural effusion with right basilar infiltrate. Blunting of the left costophrenic angle. Normal size heart. Calcified right infrahilar hilar lymph nodes. Normal visualized pulmonary arteries. There is atherosclerotic calcification of the aortic arch with tortuosity. There are mild degenerative changes of the visualized thoracic spine. Normal visualized ribs, clavicles, and shoulders. There is no demonstrated abnormality of the visualized soft tissue structures of the upper abdomen. RAD/Chest 1 View (Portable) IMPRESSION: Small right pleural effusion with right basilar infiltrate. Electronically Signed: Brayan Khan MD at 12:12 EST , Service support ,
--- NOTE | 2020-09-15 11:47 | ED.DCSUM_ITS ---
History of Present Illness Chief Complaint: Shortness of Breath Informant: Patient Narrative: 84-year-old female with past medical history of chronic kidney disease, hypertension, diabetes presents with concern for right upper quadrant and flank pain. States is been present over the past 5 days. States that she initially felt as because she was moving furniture around her home. States that she began to cough last night. States it was persistent. States she began feeling weak this morning and was seen by primary care who sent her here for further evaluation. She denies any nausea, vomiting, urinary symptoms, shortness of breath. Past Medical History - Allergies and Home Meds Allergies/Adverse Reactions: Allergies Tetanus Vaccines and Toxoid [Tetanus Vaccines & Toxoid] Allergy (Verified 09/15/20 11:10) Unknown HORSE SERUM TETANUS Prior records reviewed: Yes Past Medical History: - - HTN, CKD, DMII Surgical History: hysterectomy, - - renal bx 02/2014 Smoking Status: Never smoker - Family History Paternal Family History: Reports: Heart Disease Maternal Family History: Reports: Unknown Review of Systems General: Denies: Chills, Fever, Sweats Eyes: Denies: Visual changes - bilaterally, Diplopia ENT: Denies: Rhinorrhea, Sore throat Cardiovascular: Denies: Chest pain, Palpitations Respiratory: Reports: Cough. Denies: Dyspnea, Dyspnea on exertion Gastrointestinal: Reports: Abdominal pain. Denies: Nausea, Vomiting, Diarrhea, Melena, Hematochezia Genitourinary: Denies: Dysuria, Hematuria, Frequency Musculoskeletal: Denies: Back pain, Extremity Pain Skin: Denies: Rash, Wounds Neurological: Denies: Headache, Weakness, Numbness Physical Exam Vital Signs/Narrative: Vital Signs Temp Pulse Resp BP Pulse Ox 09/15/20 11:08 95.5 F L 79 20 H 133/63 H 96 Inital Vital Signs reviewed: Yes General: Well nourished, Well developed, No Acute Distress Head: Normocephalic, Atraumatic Eyes: Perrl, EOMI ENT: Moist mucous membranes, No rhinorrhea Neck: Supple, Nontender Cardiovascular: Regular rate, Regular rhythm, No murmurs Respiratory: No distress, CTA bilaterally, Chest nontender Abdomen: Soft, Nondistended, Normal bowel sounds, - - TTP in the RUQ. Back: Nontender, Normal Inspection Extremities: Nontender, No edema Skin: Normal color, No rash Neurological: Alert, Oriented x3, Cranial nerves II-XII grossly intact, Normal Strength, Normal Sensation Psychological: Normal affect, Normal Mood Diagnostic/Tx/Re-eval Chest X-Ray - ED: 1 View, Read by ED Physician, Read by Radiologist, Right I nfiltrate, Right Effusion Clinical Impression(s) from Imaging Studies Abdomen Ultrasound 09/15/20 11:20 IMPRESSION: Small amount of perihepatic fluid. Mild right renal atrophy. Electronically Signed: Brayan Khan MD at 13:54 EST , Service support , Chest X-Ray 09/15/20 11:42 IMPRESSION: Small right pleural effusion with right basilar infiltrate. Electronically Signed: Brayan Khna MD at 12:12 EST , Service support , Laboratory Data 09/15/20 09/15/20 12:27 12:27 WBC 13.8 H RBC 3.13 L Hgb 10.7 L Hct 30.6 L MCV 97.8 MCH 34.2 H MCHC 35.0 RDW Std Deviation 51.1 H RDW Coeff of Obey 14.5 Plt Count 170 MPV 11.1 Immature Gran % (Auto) 1.700 H Neut % (Auto) 83.5 H Lymph % (Auto) 2.1 L [place] % (Auto) 11.5 H Eos % (Auto) 0.8 Baso % (Auto) 0.4 Absolute Neuts (auto) 11.5 H Absolute Lymphs (auto) 0.29 L Nucleated RBC % 0.2 Differential Comment Diff Path Review May foll Platelet Estimate ADEQUATE RBC Morphology N CHROM Anisocytosis 1+ Ovalocytes 1+ [place] Cells 2+ Sodium 124 L Potassium 4.8 Chloride 94 L Carbon Dioxide 22.0 Anion Gap 8 BUN 67 H Creatinine 3.56 H Estim Creat Clear Calc 9.47 Est GFR (MDRD) Af Amer 16 L Est GFR (MDRD) Non-Af 13 L BUN/Creatinine Ratio 18.8 Glucose 126 H Calcium 8.9 Total Bilirubin 0.90 AST 17 ALT 24 Alkaline Phosphatase 71 Troponin I < 0.015 Total Protein 6.9 Albumin 2.8 L Globulin 4.1 Albumin/Globulin Ratio 0.7 L Lipase 58 L - Rhythm Strip Rhythm Strip: Sinus Rhythm Rate: 80 Ectopy: None - EKG Initial EKG Interpretation: Sinus Rhythm - Sinus rhythm at 80 bpm. CO interval 160 ms. QTC of [address] changes. No evidence of acute ischemia. - Medical Decision Making Patient appears well and nontoxic. No hypoxemia. X-ray shows evidence of a right infiltrate with effusion. This was interpreted by myself. Radiology concurs. Right upper quadrant ultrasound shows no evidence of acute cholecystitis. Leukocytosis as well as hyponatremia on lab work. Patient was given Rocephin and azithromycin. EKG nonischemic with a negative troponin. Patient does have worsening renal function. Was given fluid bolus. Spoke with hospitalist who requested a noncontrasted CT of the abdomen pelvis which will be followed on the floor. Patient admitted for further treatment and evaluation. Impression: 1. Community acquired pneumonia 2. Right pleural effusion 3. Acute renal insufficiency 4. Hyponatremia ED Disposition - Plan for ED Patient: Disposition: Acute Care Hospital [facility]
[2020-09-15 12:39] LABS: Absolute Lymphocyte Count 0.29 X10^3/uL (0.83-4.51); Absolute Neutrophil Count 11.5 X10^3/uL (2.0-7.7); Basophil# 0.05 X10^3/uL; Basophil% 0.4 % (0-1); Eosinophil# 0.11 X10^3/uL; Eosinophils% 0.8 % (0-5); Hematocrit 30.6 % (37-47); Hemoglobin 10.7 g/dL (12.0-15.0); Lymphocyte # 0.29 X10^3/ul (4.0); Lymphocyte % 2.1 % (19-41); Mean Corpuscular Hgb 34.2 pg (27.0-32.0); Mean Corpuscular Volume 97.8 fL (81-99); Mean Platelet Vol. 11.1 fl (6.2-12.0); Monocyte# 1.58 X10^3/uL; Monocyte% 11.5 % (0-10); NRBC Flagged by Analyzer 0.2 % (0-5); Neutrophil # 11.51 X10^3/uL (2.7-7.7); Neutrophil % 83.5 % (47-70); POSITIVE COUNT YES; POSITIVE DIFFERENTIAL YES; Platelet Count 170 K/mm3 (150-450); RBC Distribution Width CV 14.5 % (11.6-14.6); RBC Distribution Width SD 51.1 fl (35.1-43.9); Red Blood Count 3.13 M/mm3 (4.2-5.4); White Blood Count 13.8 K/mm3 (4.4-11.0)
[2020-09-15 12:40] LABS: Differential Indicated SCAN CRITERIA MET
[2020-09-15 13:14] LABS: ALB/GLOB Ratio 0.7 RATIO (0.9-2.4); AST(SGOT) 17 U/L (15-37); Alanine Aminotransfer ALT/SGPT 24 U/L (13-56); Albumin, Serum 2.8 g/dL (3.2-5.0); Alkaline Phosphatase 71 U/L (45-117); Anion Gap 8 (5-15); BUN 67 mg/dL (7-18); BUN/Creat Ratio 18.8 RATIO (10-20); Calcium,Total 8.9 mg/dL (8.5-10.1); Chloride 94 mmol/L (98-107); Creatinine, Serum 3.56 mg/dL (0.55-1.02); EST Glomerular Filtration Rate 13 mL/min (>60); Est Glom Filt Rate - Afr Amer 16 mL/min (>60); Estimated Creatinine Clearance 9.47 ml/min; Globulin 4.1 g/dL (2.2-4.2); Glucose 126 mg/dL (74-106); Lipase 58 U/L (73-393); Potassium 4.8 mmol/L (3.5-5.1); Protein, Total 6.9 g/dL (6.4-8.2); Sodium Level 124 mmol/L (136-145)
[2020-09-15 13:40] LABS: Platelet Estimate ADEQUATE (ADEQ)
[2020-09-15 13:41] LABS: Anisocytosis 1+; Burr Cells 2+; Ovalocyte 1+; Red Cell Morphology N CHROM NORMAL (NORM C&C)
--- NOTE | 2020-09-15 13:50 | CT_ITS ---
STUDY: CT ABDOMEN AND PELVIS WITHOUT CONTRAST REASON FOR EXAM: Female, 84 years old. SOB AND COUGH, RT FLANK PAIN RADIATION DOSAGE (If Supplied By Facility): CTDIvol = ( 11.17 ) mGy, DLP = ( 589.06 ) mGycm TECHNIQUE: Transaxial images were obtained from the dome of the diaphragm to the symphysis pubis without oral contrast, and without intravenous contrast. Sagittal and coronal images were reconstructed. Individualized dose optimization techniques were used for this CT. COMPARISON: Comparison is made with prior CT scan of the abdomen dated 04/03/2019. FINDINGS: Small right pleural effusion with inhomogeneous consolidation in the right lower lobe. This is new as compared to prior study. Calcified granuloma in the right lower lobe. Calcified right infrahilar lymph nodes. Coronary artery calcification. Normal liver. Normal gallbladder and extrahepatic biliary system. There are multiple benign calcified granulomata of the spleen. Normal pancreas. Normal bilateral adrenal glands. Normal right kidney. Normal left kidney. Normal visualized stomach. Normal small intestine. There are scattered colonic diverticula consistent with diverticulosis. Evidence of prior cholecystectomy. There is diffuse atherosclerotic calcification of the abdominal aorta, without a demonstrated aneurysm. Normal inferior vena cava. Normal retroperitoneum. Normal urinary bladder. There is absence of the uterus consistent with a prior hysterectomy. Calcified phleboliths are seen in the pelvis. Normal abdominal wall. There are diffuse degenerative changes of the visualized lumbar spine. CT/Abdomen/Pelvis without Cont IMPRESSION: Small right pleural effusion with heterogeneous consolidation in the right lower lobe. This is suggestive of pneumonitis with areas of necrosis. Electronically Signed: Brayan Khan MD at 15:08 EST , Service support ,
--- NOTE | 2020-09-15 13:51 | PCM.HP.STD ---
Problem List (1) AIDEN (acute kidney injury) Status: Acute (2) Hypertension Status: Chronic Qualifiers: Hypertension type: essential hypertension Qualified Code(s): I10 - Essential (primary) hypertension (3) Pneumonia Status: Acute Qualifiers: Pneumonia type: due to unspecified organism Laterality: right Lung location: lower lobe of lung Qualified Code(s): J18.9 - Pneumonia, unspecified organism History of Present Illness Date of Admission: 09/15/20 Chief Complaint: Right sided chest pain, SOB - 3 days The patient is a 84 year old F with past medical history of hypertension, CKD stage IV who follows with Dr. Rebollar in the outpatient comes in with complaints of right-sided chest and flank pain that started 3 days prior to admission. Patient stated that it started 5 days prior to admission, after she did deep cleaning and moving her furniture. She feels that she might have done a lot. 2 days later, she started having persistent right flank pain that was worse with deep breathing and with movement. It had no relieving factors. She also had cough that was productive. She cannot tell what color her sputum is. She denied any fever but admitted to chills. She denied any sick contacts or contact with persons with Covid. She went to see her primary care doctor today who asked her to go to the emergency department. In the ED, her vitals showed temperature 95.5 F, heart rate 79, blood pressure 133/63, respiratory 20, SPO2 is 96% on room air. WBC count is 13.8, Hb 10.7, which is about her baseline, platelet count 170, sodium 124, potassium 4.8, bicarbonate 22, chloride 94, anion gap 8, BUN 7, creatinine 3.59, baseline creatinine is 1.9, LFTs are unremarkable, lipase is 58. Ultrasound of the abdomen showed small amount of perihepatic fluid. Mild right renal atrophy. Chest x-ray shows small right pleural effusion with right basilar infiltrate. Past Medical History Past Medical History (Chronic Problems): Chronic Problems (Last Reviewed 06/05/19 @ 09:[address] Mike Pat, DO) Stage 4 chronic kidney disease (Chronic) Left-sided tinnitus (Chronic) Vertigo (Chronic) Anxiety (Chronic) Hypertension (Chronic) Kidney disease (Chronic) Hypertension (Chronic) Glomerulonephritis (Chronic) Medical History: Medical History (Last Reviewed 06/05/19 @ 09:[address] Mike Pat DO) Anxiety (Chronic) F41.9 Hypertension (Chronic) I10 Kidney disease (Chronic) N28.9 Allergies Tetanus Vaccines and Toxoid [Tetanus Vaccines & Toxoid] Allergy (Verified 09/15/20 11:10) Unknown HORSE SERUM TETANUS Home Medications: Ambulatory Orders Medication Instructions Recorded Metoprolol Tartrate [Lopressor 25 mg PO DAILY 04/02/19 (beta po)] azathioprine 50 mg tablet 50 mg PO DAILY@0800 #90 tab 06/05/19 pantoprazole 40 mg tablet,delayed 40 mg PO DAILY #90 tab 06/30/20 release Sertraline HCl [Zoloft] 75 mg PO DAILY 09/15/20 Surgical History: Surgical History (Last Reviewed 06/05/19 @ 09:[address] Mike Pat DO) History of hysterectomy Z90.710 2014 Surgical History: appendectomy, cholecystectomy, herniorrhaphy - right heniorrhaphy, hysterectomy, - - renal bx 02/2014 Psychiatric History: No pertinent psych hx [employer] History: No pertinent [employer] history Lives: Alone Smoking Status: Never smoker Tobacco Use: Non-smoker Alcohol: None Drugs: None - *Family History Paternal History Items: Heart Disease Maternal History Items: Heart Disease - at age 54 years Review of Systems Constitutional: Reports: Anorexia, Chills, Malaise, Weakness, Fatigue. Denies: Fever, Night Sweats, Weight Change Eyes: Denies: Blurred vision, Cataracts, Pain, Redness, Vision Change HEENT: Denies: Difficulty Hearing, Difficulty Swallowing, Head Aches, Hearing Changes, Sinus Congestion, Sinus Drainage Cardiovascular: Denies: Chest Pain, Claudication, Orthopnea, Palpitations, Paroxysmal Noc. Dyspnea Respiratory: Reports: Cough, Pleuritic Pain, Shortness of Breath, Shortness of breath upon exertion, Sputum production. Denies: Shortness of breath at rest, Wheezing Gastrointestinal: Reports: Abdominal Pain. Denies: Constipation, Diarrhea, Hematemesis, Hematochezia, Nausea, Melena, Vomiting Genitourinary: Denies: Dysuria, Frequency, Incontinence, Nocturia Gynecological: Denies: Breast symptoms, Excessively long or heavy periods Musculoskeletal: Denies: Joint Pain, Joint stiffness, Joint swelling, Joint Tenderness Skin: Denies: Pruritis, Rash, Wounds Neurological: Denies: Difficulty swallowing, Focal weakness, Numbness, Tingling Psychiatric: Denies: Anxiety, Depression, Homicidal Ideations, Suicidal Ideations Hematologic/ Lymphatic: Denies: Easy Bruising, Easy Bleeding VTE Information - Inpt Only VTE Present on Admission: No VTE Pharm Prophylaxis ordered?: Yes Patient Problems: Active and Suspected Problems (Last Reviewed 06/05/19 @ 09:[address] Mike Pat, DO) AIDEN (acute kidney injury) (Acute) Pneumonia (Acute) - Physical Exam Vitals/I&O's: Vital Signs Temp Pulse Resp BP Pulse Ox 95.5 F L 79 20 H 133/63 H 96 09/15/20 11:08 09/15/20 11:08 09/15/20 11:08 09/15/20 11:08 09/15/20 11:08 Oxygen Delivery Method Room Air Weight: 74.843 kg Body Mass Index (BMI) 30.2 Finger Stick Blood Glucose 130 General: Alert, Oriented x3, Cooperative, No apparent distress HEENT: Atraumatic, PERRLA, EOMI, Normocephalic Oral: Moist Mucosa Neck: Supple Lungs: Diminished - in the right middle and lower lung zones Cardiovascular: Regular rate, Regular Rhythm, Normal S1, Normal S2, No murmurs Abdomen: Bowel Sounds Present, Soft, Non-Distended, No Hepato-splenomegaly, Tender - right flank and upper quadrant, tender on palpation with guarding but no RBT Extremities: No edema Skin: No rashes Musculoskeletal: No Tenderness to Palpation of Joints or Extremities Lymphatic: No Cervical, Supraclavicular, or Inguinal Adenopathy Neurological: Cranial nerves II-XII grossly intact, Neuro grossly intact Psych/Mental Status: Normal Affect, Appropriate Microbiology Past 72 Hours 09/15/20 12:27 Mucosa - Nose SARS-CoV-2 Antigen (Rapid) - Final Laboratory Results 09/15/20 12:27: Sodium 124 L, Potassium 4.8, Chloride 94 L, Carbon Dioxide 22.0, Anion Gap 8, BUN 67 H, Creatinine 3.56 H, Estim Creat Clear Calc 9.47, Est GFR (MDRD) Af Amer 16 L, Est GFR (MDRD) Non-Af 13 L, BUN/Creatinine Ratio 18.8, Glucose 126 H, Calcium 8.9, Total Bilirubin 0.90, AST 17, ALT 24, Alkaline Phosphatase 71, Troponin I < 0.015, Total Protein 6.9, Albumin 2.8 L, Globulin 4.1, Albumin/Globulin Ratio 0.7 L, Lipase 58 L 09/15/20 12:27: WBC 13.8 H, RBC 3.13 L, Hgb 10.7 L, Hct 30.6 L, MCV 97.8, MCH 34.2 H, MCHC 35.0, RDW Std Deviation 51.1 H, RDW Coeff of Obey 14.5, Plt Count 170, MPV 11.1, Immature Gran % (Auto) 1.700 H, Neut % (Auto) 83.5 H, Lymph % (Auto) 2.1 L, Tyler % (Auto) 11.5 H, Eos % (Auto) 0.8, Baso % (Auto) 0.4, Absolute Neuts (auto) 11.5 H, Absolute Lymphs (auto) 0.29 L, Nucleated RBC % 0.2, Differential Comment , Diff Path Review December foll, Platelet Estimate ADEQUATE, RBC Morphology N CHROM, Anisocytosis 1+, Ovalocytes 1+, Annamaria Cells 2+ Current Medications Azithromycin 500 mg/ Dextrose 255 mls @ 250 mls/hr IV X1 ONE Stop: 09/15/20 13:59 Sodium Chloride () 1,000 mls @ 999 mls/hr IV .Q1H1M ONE Stop: 09/15/20 14:17 Assessment/Plan All Active Problems (Last Reviewed 06/05/19 @ 09:[address] Mike Pat, DO) AIDEN (acute kidney injury) (Acute) Cystitis (Acute) Pneumonia (Acute) Acute renal failure syndrome (Acute) Acute respiratory failure with hypoxia (Resolved) 1. Right lower lobe pneumonia, seen on chest x-ray WBC count is 13,000, no fever, not on oxygen Started on IV ceftriaxone and azithromycin; continue same Urine Legionella and streptococcal antigen Encourage use of incentive spirometer 2. AIDEN on CKD stage IV, likely prerenal secondary to #1 History of glomerulonephritis, on azathioprine Baseline creatinine is 1.8?1.9, admitted with a creatinine of 3.56 Renal ultrasound showed no obstruction or hydronephrosis Started on IV fluids, will continue Repeat blood work in a.m. Will hold azathioprine for now If renal function continues to remain elevated, consider nephrology consult 3. Hyponatremia, likely secondary to #2 Admitted with sodium of 124 Will continue on IV fluids, repeat blood work in a.m. 4. Hypertension, controlled, continue on metoprolol 5. Hypothyroidism, continue on Synthroid 6. Anxiety/Depression, on sertraline, temazepam, continue home regimen. 7. DVT PPx -heparin subcu 8. CODE STATUS?DNR CCA I discussed and explained in details the various types of CODE STATUS-full code, DNR CCA, DNR CC. Patient chose DNR CCA. She does not want to have resuscitation in the event of cardiopulmonary arrest. She would like to be comfortable at that time. Time spent discussing CODE STATUS: 16 minutes Inpatient E&M: 16815 Init Hosp L3 Procedures: 76336 Advncd Care Plan 30 Min
[2020-09-15] MEDS: Ceftriaxone 1 GM/50 ML BAG IV (14:05)
--- NOTE | 2020-09-15 14:11 | NURSING ---
MED SURG AIDEN, POSSIBLE PNEUMONIA
[2020-09-15 14:30] LABS: Lactic Acid 1.4 mmol/L (0.4-1.9)
[2020-09-15] MEDS: 0.9% Normal Saline 1,000 ML 999 ML IV (14:38)
[2020-09-15] MEDS: 0.9% Normal Saline 1,000 ML 150 ML IV ×2 (16:07→21:04)
[2020-09-15] MEDS: Morphine 2 MG/ML Syringe IV ×3 (16:09→21:05)
[2020-09-15] MEDS: 0.9% Saline Lock 10 ML Syringe IV ×2 (16:09→22:35)
[2020-09-15] MEDS: oxyCODONE 5 MG Tablet PO (18:14)
[2020-09-15] MEDS: Acetaminophen 325 MG Tablet 650 MG PO (18:14)
[2020-09-15 20:33] LABS: Bacteria 0 SEEN /hpf (None Seen); Mucous, Urine 0 SEEN /hpf (<or=2+)
[2020-09-15 20:36] LABS: Color, Urine Yellow (Yellow); Glucose, Dipstick Normal (Normal); Ketone-Dipstick Negative (Negative); Leukocyte Esterase-Dipstick 500 /ul (Negative); Nitrite-Dipstick Negative (Negative); Occult Blood-Urine 250 /ul (Negative); Protein-Dipstick 30 mg/dl (Negative); Specific Gravity, Urine 1.015 (1.002-1.030); Urine Bilirubin Dipstick Negative (Negative); Urine Clarity Sl. Cloudy (Clear); Urine Urobilinogen Normal (Normal)
[2020-09-15 20:45] LABS: Red Blood Cells-Urine 25-50 SEEN /hpf (0-5); Renal Epithelial Cells 0-5 SEEN /hpf (0-5); Squamous Epithelial Cells - UA 25-50 SEEN /hpf (5-10); White Blood Cells 0-5 SEEN /hpf (0-5)
--- NOTE | 2020-09-15 20:54 | EKG12_ITS ---
Test Reason : CP Blood Pressure : / mmHG Vent. Rate : 111 BPM Atrial Rate : 111 BPM P-R Int : 162 ms QRS Dur : 092 ms QT Int : 326 ms P-R-T Axes : 027 014 026 degrees QTc Int : 443 ms Sinus tachycardia Nonspecific ST abnormality Abnormal ECG Confirmed by WALKER OVIEDO, SALLY ([id number]), publications editor DAVE CARDENAS ([id number]) on 09/19/2020 9:53:15 AM Referred By: DR RAINEY Confirmed By:SALLY CARDOSO MD
--- NOTE | 2020-09-15 21:11 | NURSING ---
Pt complaints of chest pain. paged and new order for x 1 dose of 2 mg morphine. Also stat EKG and triponins.Pt is assisted to bed she is placed on 4 l nc. Continues to say pain is epigastric area is worse and she is diaphoretic and alert.
[2020-09-15] MEDS: Heparin Injection (Vial) 5,000 UNIT/ML VIAL 5000 UNIT SC (22:02)
[2020-09-15] MEDS: LORazepam 2 MG/ML Syringe 0.5 MG IV (22:35)
[2020-09-15] MEDS: Metoprolol Tartrate 5 MG/5 ML Vial IV (23:47)
[2020-09-16] VITALS (14 sets, daily range): BP systolic 119–151; BP diastolic 63–78; PULSE 82–117; RESP 20–32; TEMP 36.4–37; O2SAT 94–98
[2020-09-16 03:34] LABS: Absolute Lymphocyte Count 0.12 X10^3/uL (0.83-4.51); Absolute Neutrophil Count 8.3 X10^3/uL (2.0-7.7); Basophil# 0.09 X10^3/uL; Basophil% 0.9 % (0-1); Hematocrit 31.1 % (37-47); Hemoglobin 10.4 g/dL (12.0-15.0); Lymphocyte # 0.12 X10^3/ul (4.0); Lymphocyte % 1.2 % (19-41); Mean Corp Hgb Conc 33.4 g/dL (32-36); Mean Corpuscular Hgb 33.7 pg (27.0-32.0); Mean Corpuscular Volume 100.6 fL (81-99); Mean Platelet Vol. 10.4 fl (6.2-12.0); Monocyte# 1.19 X10^3/uL; NRBC Flagged by Analyzer 0.2 % (0-5); Neutrophil # 8.26 X10^3/uL (2.7-7.7); POSITIVE DIFFERENTIAL YES; POSITIVE MORPHOLOGY YES; Platelet Count 164 K/mm3 (150-450); RBC Distribution Width CV 14.8 % (11.6-14.6); RBC Distribution Width SD 55.2 fl (35.1-43.9); Red Blood Count 3.09 M/mm3 (4.2-5.4)
[2020-09-16 03:35] LABS: Differential Indicated SCAN CRITERIA MET
[2020-09-16 03:55] LABS: Anisocytosis 1+; Burr Cells 2+; Differential Comment SCANNED; Macrocytosis 1+; Ovalocyte RARE
[2020-09-16 03:56] LABS: Schistocytes RARE
[2020-09-16 04:07] LABS: ALB/GLOB Ratio 0.7 RATIO (0.9-2.4); AST(SGOT) 17 U/L (15-37); Alanine Aminotransfer ALT/SGPT 24 U/L (13-56); Albumin, Serum 2.5 g/dL (3.2-5.0); Alkaline Phosphatase 65 U/L (45-117); Anion Gap 10 (5-15); BUN 65 mg/dL (7-18); BUN/Creat Ratio 19.8 RATIO (10-20); Calcium,Total 8.5 mg/dL (8.5-10.1); Chloride 99 mmol/L (98-107); Creatinine, Serum 3.29 mg/dL (0.55-1.02); EST Glomerular Filtration Rate 14 mL/min (>60); Est Glom Filt Rate - Afr Amer 17 mL/min (>60); Estimated Creatinine Clearance 10.25 ml/min; Globulin 3.8 g/dL (2.2-4.2); Glucose 126 mg/dL (74-106); Potassium 4.4 mmol/L (3.5-5.1); Protein, Total 6.3 g/dL (6.4-8.2); Sodium Level 126 mmol/L (136-145)
[2020-09-16] MEDS: 0.9% Saline Lock 10 ML Syringe IV ×2 (09:54→21:03)
--- NOTE | 2020-09-16 09:56 | PN_ITS ---
Patient Problems: Active and Suspected Problems (Last Updated 09/16/20 @ 10:[address] Nazia Roe MD) Pneumonia (Acute) Subjective: Chief complaint: Follow-up after admission for right lower lobe pneumonia, AIDEN on CKD. Patient seen and examined. No acute events overnight. Right lateral chest pain improved. She denied shortness of breath. Reported minimal cough. Denied fever or chills. Denied nausea or vomiting. Denied abdominal pain. She is afebrile, slight tachycardia, blood pressure stable, pulse ox is 95% on 2 L. - Physical Exam Vitals/I&O's: Vital Signs Temp Pulse Resp BP Pulse Ox 97.5 F L 96 20 H 129/78 H 95 09/16/20 06:29 09/16/20 06:29 09/16/20 06:33 09/16/20 06:29 09/16/20 06:29 Oxygen Flow Rate (L/min) 2 Oxygen Delivery Method Nasal Cannula Weight: 140 lb 10.479 oz Body Mass Index (BMI) 24.7 Finger Stick Blood Glucose 130 Intake and Output for Last 24 Hours 09/14/20 09/15/20 09/16/20 23:59 23:59 23:59 Intake Total 2495.0 / 2495.0 852.5 / 852.5 Output Total 200 / 200 Balance 2495.0 / 2495.0 652.5 / 652.5 General: Alert, Oriented x3, Cooperative, No apparent distress HEENT: Atraumatic, PERRLA, EOMI, Normocephalic Oral: Moist Mucosa, No Gingival or Mucosal Lesions/ Ulcerations Neck: Supple, No JVD, Negative Carotid Bruits, Trachea Midline, Thyroid Normal Size and Texture Lungs: No rhonchi, No wheeze, Diminished, Rales, - - Decreased breath sounds at the right base, fine crackles in the right base. Cardiovascular: Regular rate, Regular Rhythm, Normal S1, Normal S2, PMI Normal, Tachycardic Abdomen: Bowel Sounds Present, Soft, Non Tender, Non-Distended, No Hepato-splenomegaly Extremities: No clubbing, No cyanosis, No edema Skin: No rashes, No breakdown Lymphatic: No Cervical, Supraclavicular, or Inguinal Adenopathy Neurological: Cranial nerves II-XII grossly intact, Motor Exam 5/5 strength throughout Psych/Mental Status: Normal Affect, Appropriate Microbiology Past 72 Hours 09/15/20 20:23 Urine, Clean Catch Legionella Antigen - Final 09/15/20 20:26 Urine, Clean Catch Streptococcus pneumoniae Antigen (M - Final 09/15/20 12:27 Mucosa - Nose SARS-CoV-2 Antigen (Rapid) - Final Laboratory Results 09/15/20 12:27: Sodium 124 L, Potassium 4.8, Chloride 94 L, Carbon Dioxide 22.0, Anion Gap 8, BUN 67 H, Creatinine 3.56 H, Estim Creat Clear Calc 9.47, Est GFR (MDRD) Af Amer 16 L, Est GFR (MDRD) Non-Af 13 L, BUN/Creatinine Ratio 18.8, Glucose 126 H, Calcium 8.9, Total Bilirubin 0.90, AST 17, ALT 24, Alkaline Phosphatase 71, Troponin I < 0.015, Total Protein 6.9, Albumin 2.8 L, Globulin 4.1, Albumin/Globulin Ratio 0.7 L, Lipase 58 L 09/15/20 12:27: WBC 13.8 H, RBC 3.13 L, Hgb 10.7 L, Hct 30.6 L, MCV 97.8, MCH 34.2 H, MCHC 35.0, RDW Std Deviation 51.1 H, RDW Coeff of Obey 14.5, Plt Count 170, MPV 11.1, Immature Gran % (Auto) 1.700 H, Neut % (Auto) 83.5 H, Lymph % (Auto) 2.1 L, Dundy % (Auto) 11.5 H, Eos % (Auto) 0.8, Baso % (Auto) 0.4, Absolute Neuts (auto) 11.5 H, Absolute Lymphs (auto) 0.29 L, Nucleated RBC % 0.2, Differential Comment , Diff Path Review May foll, Platelet Estimate ADEQUATE, RBC Morphology N CHROM, Anisocytosis 1+, Ovalocytes 1+, [place] Cells 2+ 09/15/20 13:55: Lactic Acid 1.4 09/15/20 16:00: COVID-19 (JULI) Not Detected 09/15/20 20:26: Urine Color Yellow, Urine Clarity Sl. Cloudy, Urine pH 5.0, Ur Specific [place] 1.015, Urine Protein 30 H, Urine Glucose (UA) Normal, Urine Ketones Negative, Urine Occult Blood 250 H, Urine Nitrite Negative, Urine Bilirubin Negative, Urine Urobilinogen Normal, Ur Leukocyte Esterase 500 H, Urine RBC 25-50 SEEN, Urine WBC 0-5 SEEN, Ur Squamous Epith Cells 25-50 SEEN, Ur Renal Epithelial Cell 0-5 SEEN, Urine Bacteria 0 SEEN, Urine Mucus 0 SEEN 09/15/20 21:13: Troponin I < 0.015 09/16/20 00:04: Troponin I < 0.015 09/16/20 03:06: WBC 10.0, RBC 3.09 L, Hgb 10.4 L, Hct 31.1 L, MCV 100.6 H, MCH 33.7 H, MCHC 33.4, RDW Std Deviation 55.2 H, RDW Coeff of Obey 14.8 H, Plt Count 164, MPV 10.4, Immature Gran % (Auto) 1.900 H, Neut % (Auto) 83.0 H, Lymph % (Auto) 1.2 L, Dundy % (Auto) 12.0 H, Eos % (Auto) 1.0, Baso % (Auto) 0.9, Absolute Neuts (auto) 8.3 H, Absolute Lymphs (auto) 0.12 L, Nucleated RBC % 0.2, Differential Comment SCANNED, Anisocytosis 1+, Macrocytosis 1+, Ovalocytes RARE, Bee Branch Cells 2+, Schistocytes RARE 09/16/20 03:06: Sodium 126 L, Potassium 4.4, Chloride 99, Carbon Dioxide 17.0 L, Anion Gap 10, BUN 65 H, Creatinine 3.29 H, Estim Creat Clear Calc 10.25, Est GFR (MDRD) Af Amer 17 L, Est GFR (MDRD) Non-Af 14 L, BUN/Creatinine Ratio 19.8, Glucose 126 H, Calcium 8.5, Total Bilirubin 0.80, AST 17, ALT 24, Alkaline Phosphatase 65, Total Protein 6.3 L, Albumin 2.5 L, Globulin 3.8, Albumin/Globulin Ratio 0.7 L 09/16/20 03:06: Troponin I < 0.015 Current Medications Acetaminophen (Acetaminophen 325 Mg Tablet) 650 mg PO Q6H PRN PRN PRN Reason: Pain Score 1-10/Temp > 100.7 F Last Admin: 09/15/20 18:14 Dose: 650 mg Documented by: Al Hydroxide/Mg Hydroxide (Mag Hydrox/Al Hydrox/Simeth 30 Ml Udc) 30 ml PO Q6H PRN PRN PRN Reason: Gastric Burning Azathioprine (Azathioprine 50 Mg Tablet) 50 mg PO DAILY@0800 [facility] Heparin Sodium (Porcine) (Heparin Injection (Vial) 5,000 Unit/Ml Vial) 5,000 unit SC Q12 LO Last Admin: 09/15/20 22:02 Dose: 5,000 unit Documented by: Piperacillin Sod/Tazobactam (Sod 3.375 gm/ Sodium Chloride) 50 mls @ 12.5 mls/hr IV Q8 LO Vancomycin IV Pharmacy to Dose (1 ea/ Sodium Chloride) 500 mls @ 250 mls/hr IV X1 PRN; Protocol PRN Reason: Rx to Dose Magnesium Hydroxide (Magnesium Hydroxide 30 Ml Udc) 30 ml PO DAILY PRN PRN PRN Reason: Constipation Metoprolol Tartrate (Metoprolol Tartrate 25 Mg Tablet) 25 mg PO DAILY [facility] Oxycodone HCl (Oxycodone 5 Mg Tablet) 5 mg PO Q4H PRN PRN PRN Reason: Pain Score 4-5 Last Admin: 09/15/20 18:14 Dose: 5 mg Documented by: Pantoprazole Sodium (Pantoprazole Sodium 40 Mg Tablet) 40 mg PO DAILY [facility] Senna/Docusate Sodium (Senna/Docusate Sodium 1 Tablet) 2 tablet PO BID PRN PRN PRN Reason: Constipation Sertraline HCl (Sertraline 50 Mg Tablet) 75 mg PO DAILY [facility] Sodium Chloride (0.9% Saline Lock 10 Ml Syringe) 10 - 40 ml IV UD PRN PRN Reason: SALINE FLUSH Last Admin: 09/15/20 22:35 Dose: 10 ml Documented by: Medical Necessity - Tobacco Use Smoking Status: Never smoker Tobacco Use: Non-smoker Assessment/Plan All Active Problems (Last Updated 09/16/20 @ 10:[address] Nazia Roe MD) Acute kidney injury superimposed on CKD (Acute) Pneumonia (Acute) This is an 84 years old female patient presented to the emergency room because of shortness of breath and right lateral chest pain, found to have right lower lobe consolidation with small pleural effusion consistent with pneumonia, also found to have AIDEN on CKD and she was admitted for treatment. #1 right lower lobe pneumonia: She qualifies for healthcare associated pneumonia as she is on immunosuppression with azathioprine. She is on IV Rocephin and Zithromax. Chest x-ray reviewed, revealed right lower lobe consolidation with small right pleural effusion. Pneumococcal and urinary antigens were negative. COVID-19 antigen and PCR was negative. She is on 2 L of oxygen, other vital signs are stable. Plan: DC IV Rocephin and Zithromax, start IV vancomycin and Zosyn, incentive spirometer, repeat CBC and BMP tomorrow morning. #2 acute kidney injury on top of stage IV chronic kidney disease: Her baseline creatinine has been around 2 to 3 mg/dL in the last 4 to 5 years. Admission creatinine was 3.56, it came down to 3.29 today, improving. Plan to continue IV fluids, resume azathioprine, repeat BMP tomorrow morning. #3 hyponatremia: It is likely due to sodium loss through the kidneys secondary to glomerulonephritis. We will start IV fluids again with normal saline, repeat BMP tomorrow morning. #4 hypertension: Blood pressure stable, continue metoprolol. #5 glomerulonephritis: Resume azathioprine. #6 anxiety/depression: Continue Zoloft. #7 DVT prophylaxis: Subcu heparin. This note was generated with [employer] dictation software. It may contain incorrect words, spelling, and punctuation that were not noted in checking the note before signing. Inpatient E&M: 95348 Subs Hosp L2
--- NOTE | 2020-09-16 10:00 | CASEMGMT ---
COBY PHILLIPS Face to Face with patient for initial transition planning/care coordination assessment. RN CM introduced self and role at [facility]. Patient sitting in chair, alert and oriented. Patient willing to participate in assessment and is able to answer all questions appropriately. Care providers, pharmacy, and demographics verified. Patient wishes to discharge home, denies need for home health at this time. Will monitor for need for home oxygen. Patient states she has no further needs or concerns at this time. CM to follow for discharge planning needs that may arise. PCP: Bi Specialists: None Preferred Pharmacy: [facility] Insurance: [facility] Prescription Benefit: [place] Living Will/HPOA: none LNOK: son, daughter Living Arrangements: Patient lives in a small 1 story home with 3 steps and railing to enter the home. Patient states she lives next door to her son. Patient states she is independent Transportation: driving service DME/HHC: Patient states she has shower chair, cane, walker, grab bars, and nebulizer at home. Patient states she has access to solar electricity. Will monitor for need for home oxygen Disposition Plan: Patient to discharge home with family support and follow-up plans in place. Eva BARFIELD, RN, CM
--- NOTE | 2020-09-16 10:27 | PCM.RX.CS ---
Consult Pharmacy has been consulted to manage selected antiobiotic: Vancomycin Type of Consult: New start Suspected Infection: Pneumonia Labs: Sodium 126 mmol/L (136-145) L 09/16/20 03:06 Potassium 4.4 mmol/L (3.5-5.1) 09/16/20 03:06 Chloride 99 mmol/L (98-107) 09/16/20 03:06 Carbon Dioxide 17.0 mmol/L (21.0-32.0) L 09/16/20 03:06 Anion Gap 10 (5-15) 09/16/20 03:06 BUN 65 mg/dL (7-18) H 09/16/20 03:06 Creatinine 3.29 mg/dL (0.55-1.02) H 09/16/20 03:06 Est GFR (MDRD) Af Amer 17 mL/min (>60) L 09/16/20 03:06 Est GFR (MDRD) Non-Af 14 mL/min (>60) L 09/16/20 03:06 BUN/Creatinine Ratio 19.8 RATIO (10-20) 09/16/20 03:06 Glucose 126 mg/dL (74-106) H 09/16/20 03:06 Microbiology: Microbiology 09/15/20 20:23 Urine, Clean Catch Legionella Antigen - Final 09/15/20 20:26 Urine, Clean Catch Streptococcus pneumoniae Antigen (M - Final 09/15/20 12:27 Mucosa - Nose SARS-CoV-2 Antigen (Rapid) - Final Goal Trough: 15-20 mcg/mL Pharmacy Plan for Drug Dosing: NEW START IV VANCOMYCIN Consulting Physician: Dr. Roe Indication: Pneumonia Goal Trough: 15-20 SrCr: 3.29 CrCl: 10 mL/min Comments:Loading dose 1500mg IV x1 today, 09/16/20 Vancomcyin Dose: HOLD- will dose based on random level Pending Level: 09/18/20 with AM labs Pharmacy Service will continue to monitor and adjust dosing as required.
[2020-09-16 12:19] LABS: Pathologist Review Reviewed
[2020-09-16] MEDS: Heparin Injection (Vial) 5,000 UNIT/ML VIAL 5000 UNIT SC ×2 (13:29→21:04)
[2020-09-16] MEDS: azaTHIOprine 50 MG Tablet PO (13:31)
[2020-09-16] MEDS: Sertraline 50 MG Tablet 75 MG PO (13:31)
[2020-09-16] MEDS: Pantoprazole Sodium 40 MG Tablet PO (13:31)
[2020-09-16] MEDS: Metoprolol Tartrate 25 MG Tablet PO (13:32)
[2020-09-16] MEDS: BENZOCAINE/MENTHOL 1 LOZENGE MUCOUS MEM (13:39)
[2020-09-16] MEDS: 0.9% Normal Saline 1,000 ML 75 ML IV (15:32)
[2020-09-16] MEDS: Acetaminophen 325 MG Tablet 650 MG PO (21:12)
[2020-09-17] VITALS (19 sets, daily range): BP systolic 104–156; BP diastolic 49–85; PULSE 73–141; RESP 17–28; TEMP 36.3–36.8; O2SAT 94–99
--- NOTE | 2020-09-17 | FLU_PTH ---
PATIENT: DIAMANTE MERAZ LOC: [facility] U#:[id number] AGE/SX: 84/F ROOM: [facility] RE09/15/[address]: Dr. Nazia Roe MD : [id number] BED: 1 DIS: 09/18/2020 SPEC #: [id number] RECD: 09/17/20 15:03 STATUS: LAKESHA DARYL #: [id number] ABEL: 09/17/20 00:[address]: Nazia Roe DEPT: CYTOLOGY RECD BY: Darius Arndt ENTERED: 09/18/20 07:07 SP TYPE: Fluid OTHR DR: MD Dr. Jonathan Pryor MD Dr. Douglas R Brown, DO Tissues: Pleural fluid, NOS Procedures: Special Stain Group II Surgery Specimen Level IV Cytospin Fluid HEADER OPERATION: Ultrasound-guided thoracentesis PRE-OP DIAGNOSIS: Pleural effusion TISSUE SUBMITTED: Thoracentesis fluid for cytology DIAGNOSIS CYTOLOGY Thoracentesis fluid for cytology (cytospin and cell block): Negative for malignant cells. Marked acute inflammation. See comment. CLAUDIA:gab 09/19/2020 COMMENT Clinical correlation and appropriate follow up are necessary. CYTOLOGY STUDY Slides are reviewed. CYTOLOGY GROSS Received is 70 ml of yellow, cloudy fluid labeled with the patient's name and and designated per the requisition as thoracentesis. Submitted for cytology preparation including cell block. / gab 09/18/2020 TC:2 CPT: 55926, 13364
[2020-09-17] MEDS: MELATONIN 3 MG TABLET PO (00:35)
--- NOTE | 2020-09-17 06:00 | NURSING ---
Pt's daughter, Pamela Velasco, called in for an update on her mom.
[2020-09-17 06:38] LABS: Absolute Lymphocyte Count 0.33 X10^3/uL (0.83-4.51); Absolute Neutrophil Count 17.8 X10^3/uL (2.0-7.7); Basophil# 0.11 X10^3/uL; Basophil% 0.5 % (0-1); Eosinophil# 0.01 X10^3/uL; Hematocrit 25.3 % (37-47); Hemoglobin 8.8 g/dL (12.0-15.0); Lymphocyte # 0.33 X10^3/ul (4.0); Lymphocyte % 1.6 % (19-41); Mean Corp Hgb Conc 34.8 g/dL (32-36); Mean Corpuscular Hgb 33.3 pg (27.0-32.0); Mean Corpuscular Volume 95.8 fL (81-99); Mean Platelet Vol. 9.9 fl (6.2-12.0); Monocyte# 1.36 X10^3/uL; Monocyte% 6.7 % (0-10); NRBC Flagged by Analyzer 0.1 % (0-5); Neutrophil # 17.81 X10^3/uL (2.7-7.7); Neutrophil % 88.6 % (47-70); POSITIVE DIFFERENTIAL YES; POSITIVE MORPHOLOGY YES; Platelet Count 165 K/mm3 (150-450); RBC Distribution Width CV 15.1 % (11.6-14.6); RBC Distribution Width SD 53.4 fl (35.1-43.9); Red Blood Count 2.64 M/mm3 (4.2-5.4); White Blood Count 20.2 K/mm3 (4.4-11.0)
[2020-09-17 06:41] LABS: Differential Indicated SCAN CRITERIA MET
[2020-09-17 07:06] LABS: Anion Gap 9 (5-15); BUN 67 mg/dL (7-18); BUN/Creat Ratio 21.2 RATIO (10-20); Calcium,Total 8.1 mg/dL (8.5-10.1); Chloride 99 mmol/L (98-107); Creatinine, Serum 3.16 mg/dL (0.55-1.02); EST Glomerular Filtration Rate 15 mL/min (>60); Est Glom Filt Rate - Afr Amer 18 mL/min (>60); Estimated Creatinine Clearance 10.67 ml/min; Glucose 98 mg/dL (74-106); Potassium 5.4 mmol/L (3.5-5.1); Sodium Level 127 mmol/L (136-145)
[2020-09-17] MEDS: Pantoprazole Sodium 40 MG Tablet PO (08:38)
[2020-09-17] MEDS: Heparin Injection (Vial) 5,000 UNIT/ML VIAL 5000 UNIT SC ×2 (08:38→21:15)
[2020-09-17] MEDS: Sertraline 50 MG Tablet 75 MG PO (08:38)
[2020-09-17] MEDS: azaTHIOprine 50 MG Tablet PO (08:39)
[2020-09-17] MEDS: Metoprolol Tartrate 25 MG Tablet PO ×2 (08:43→21:13)
[2020-09-17] MEDS: 0.9% Normal Saline 1,000 ML 75 ML IV (08:49)
--- NOTE | 2020-09-17 09:05 | PN_ITS ---
Patient Problems: Active and Suspected Problems (Last Updated 09/16/20 @ 10:[address] Nazia Roe MD) Pneumonia (Acute) Subjective: Chief complaint: Follow-up after admission for healthcare associated pneumonia and AIDEN on CKD. Patient seen and examined. No acute events overnight. Today, she reported no change and she mentioned that she feels better. To me, she looks slightly more short of breath than yesterday, requiring oxygen of up to 2 L. She has been afebrile, blood pressure and heart rate are stable, pulse ox is 94% on 2 L. - Physical Exam Vitals/I&O's: Vital Signs Temp Pulse Resp BP Pulse Ox 97.8 F 86 24 H 104/62 94 09/17/20 08:01 09/17/20 08:43 09/17/20 08:01 09/17/20 08:01 09/17/20 08:01 Oxygen Flow Rate (L/min) 2 Oxygen Delivery Method Nasal Cannula Weight: 141 lb 5.061 oz Body Mass Index (BMI) 24.7 Finger Stick Blood Glucose 130 Orthostatic Vital Signs Start: 09/16/20 13:11 Freq: Status: Active Protocol: Activity Type Activity Date Activity User E-Sign Co-Sign Detail Recorded Client Recorded Date Recorded By Document 09/16/20 13:11 [id number] 09/16/20 13:20 EDGARD 09/16/20 13:11 Orthostatic Vitals Standing -Blood Pressure (90/60-120/80) 119/63 -Extremity Use Left Arm -Pulse Rate (60-100) 102 H Sitting -Blood Pressure (90/60-120/80) 128/70 H -Extremity Use Left Arm -Pulse Rate (60-100) 100 Lying -Blood Pressure (90/60-120/80) 134/65 H -Extremity Use Left Arm -Pulse Rate (60-100) 102 H Intake and Output for Last 24 Hours 09/15/20 09/16/20 09/17/20 23:59 23:59 23:59 Intake Total 2495.0 / 2495.0 2086.25 / 2086.25 641.25 / 641.25 Output Total 400 / 400 100 / 100 Balance 2495.0 / 2495.0 1686.25 / 1686.25 541.25 / 541.25 General: Alert, Oriented x3, Cooperative, - - Mildly short of breath. HEENT: Atraumatic, PERRLA, EOMI, Normocephalic Oral: Moist Mucosa, No Gingival or Mucosal Lesions/ Ulcerations Neck: Supple, No JVD, Negative Carotid Bruits, Trachea Midline, Thyroid Normal Size and Texture Lungs: No rhonchi, No wheeze, Diminished, Rales, Short of Breath, - - Decreased breath sounds on the right base with crackles. Cardiovascular: Regular rate, Regular Rhythm, Normal S1, Normal S2, PMI Normal Abdomen: Bowel Sounds Present, Soft, Non Tender, Non-Distended, No Hepato- splenomegaly Extremities: No clubbing, No cyanosis, No edema Skin: No rashes, No breakdown Lymphatic: No Cervical, Supraclavicular, or Inguinal Adenopathy Neurological: Cranial nerves II-XII grossly intact, Motor Exam 5/5 strength throughout Psych/Mental Status: Normal Affect, Appropriate Microbiology Past 72 Hours 09/15/20 20:23 Urine, Clean Catch Legionella Antigen - Final 09/15/20 20:26 Urine, Clean Catch Streptococcus pneumoniae Antigen (M - Final 09/15/20 12:27 Mucosa - Nose SARS-CoV-2 Antigen (Rapid) - Final Laboratory Results 09/15/20 12:27: Diff Path Review Reviewed 09/17/20 06:15: WBC 20.2 H, RBC 2.64 L, Hgb 8.8 L, Hct 25.3 L, MCV 95.8, MCH 33.3 H, MCHC 34.8, RDW Std Deviation 53.4 H, RDW Coeff of Obey 15.1 H, Plt Count 165, MPV 9.9, Immature Gran % (Auto) 2.600 H, Neut % (Auto) 88.6 H, Lymph % (Auto) 1.6 L, [place] % (Auto) 6.7, Eos % (Auto) 0.0, Baso % (Auto) 0.5, Absolute Neuts (auto) 17.8 H, Absolute Lymphs (auto) 0.33 L, Nucleated RBC % 0.1 09/17/20 06:15: Sodium 127 L, Potassium 5.4 H, Chloride 99, Carbon Dioxide 19.0 L, Anion Gap 9, BUN 67 H, Creatinine 3.16 H, Estim Creat Clear Calc 10.67, Est GFR (MDRD) Af Amer 18 L, Est GFR (MDRD) Non-Af 15 L, BUN/Creatinine Ratio 21.2 H , Glucose 98, Calcium 8.1 L Current Medications Acetaminophen (Acetaminophen 325 Mg Tablet) 650 mg PO Q6H PRN PRN PRN Reason: Pain Score 1-10/Temp > 100.7 F Last Admin: 09/16/20 21:12 Dose: 650 mg Documented by: Al Hydroxide/Mg Hydroxide (Mag Hydrox/Al Hydrox/Simeth 30 Ml Udc) 30 ml PO Q6H PRN PRN PRN Reason: Gastric Burning Albuterol Sulfate (Albuterol 2.5 Mg/3 Ml Vial.Neb.) 2.5 mg INHALATION Q4H PRN PRN PRN Reason: Shortness of breath, wheezing Azathioprine (Azathioprine 50 Mg Tablet) 50 mg PO DAILY@0800 [facility] Last Admin: 09/17/20 08:39 Dose: 50 mg Documented by: Heparin Sodium (Porcine) (Heparin Injection (Vial) 5,000 Unit/Ml Vial) 5,000 unit SC Q12 [facility] Last Admin: 09/17/20 08:38 Dose: 5,000 unit Documented by: Piperacillin Sod/Tazobactam (Sod 3.375 gm/ Sodium Chloride) 50 mls @ 12.5 mls/hr IV Q12 [facility] Last Admin: 09/17/20 08:54 Dose: 12.5 mls/hr Documented by: Vancomycin IV Pharmacy to Dose (1 ea/ Sodium Chloride) 500 mls @ 250 mls/hr IV PRN PRN; Protocol PRN Reason: Rx to Dose Sodium Chloride () 1,000 mls @ 60 mls/hr IV .[id number] [facility] Last Infusion: 09/17/20 08:53 Dose: 0 mls/hr Documented by: Magnesium Hydroxide (Magnesium Hydroxide 30 Ml Udc) 30 ml PO DAILY PRN PRN PRN Reason: Constipation Melatonin (Melatonin 3 Mg Tablet) 3 mg PO QHS PRN PRN Reason: SLEEP Last Admin: 09/17/20 00:35 Dose: 3 mg Documented by: Metoprolol Tartrate (Metoprolol Tartrate 25 Mg Tablet) 25 mg PO DAILY [facility] Last Admin: 09/17/20 08:43 Dose: 25 mg Documented by: Oxycodone HCl (Oxycodone 5 Mg Tablet) 5 mg PO Q4H PRN PRN PRN Reason: Pain Score 4-5 Last Admin: 09/15/20 18:14 Dose: 5 mg Documented by: Pantoprazole Sodium (Pantoprazole Sodium 40 Mg Tablet) 40 mg PO DAILY [facility] Last Admin: 09/17/20 08:38 Dose: 40 mg Documented by: Senna/Docusate Sodium (Senna/Docusate Sodium 1 Tablet) 2 tablet PO BID PRN PRN PRN Reason: Constipation Sertraline HCl (Sertraline 50 Mg Tablet) 75 mg PO DAILY [facility] Last Admin: 09/17/20 08:38 Dose: 75 mg Documented by: Sodium Chloride (0.9% Saline Lock 10 Ml Syringe) 10 - 40 ml IV UD PRN PRN Reason: SALINE FLUSH Last Admin: 09/16/20 21:03 Dose: 10 ml Documented by: Throat Lozenges (Benzocaine/Menthol 1 Lozenge) 1 lozenge MUCOUS MEM Q2H PRN PRN PRN Reason: sore throat Last Admin: 09/16/20 13:39 Dose: 1 lozenge Documented by: Medical Necessity - Tobacco Use Smoking Status: Never smoker Tobacco Use: Non-smoker Assessment/Plan All Active Problems (Last Updated 09/16/20 @ 10:[address] Nazia Roe MD) Acute kidney injury superimposed on CKD (Acute) Pneumonia (Acute) This is an 84 years old female patient presented to the emergency room because of shortness of breath and right lateral chest pain, found to have right lower lobe consolidation with small pleural effusion consistent with pneumonia, also found to have AIDEN on CKD and she was admitted for treatment. #1 right lower lobe healthcare associated pneumonia: She is on IV Zosyn and vancomycin. She has been afebrile, WBC is trending up significantly and I am not sure if this is true. She is on 2 L of oxygen, other vital signs are stable. Chest x-ray reviewed, revealed right lower lobe consolidation with small right pleural effusion. Pneumococcal and urinary antigens were negative. COVID- 19 antigen and PCR was negative. Plan: Repeat chest x-ray PA and lateral, continue same treatment, repeat CBC and BMP tomorrow morning #2 acute kidney injury on top of stage IV chronic kidney disease/hyperkalemia: She has been on gentle IV fluids for hydration. Creatinine is trending down slowly, it is down to 3.16 today, BUN is 67. Today's potassium is 5.4, it is trending up. Her baseline creatinine has been around 2 to 3 mg/dL in the last 4 to 5 years. Plan: Kayexalate x1, repeat potassium at 6 PM today, continue gentle IV fluids for hydration, encourage oral intake, repeat BMP tomorrow morning. #3 hyponatremia: It is likely due to sodium loss through the kidneys secondary to glomerulonephritis. She is on IV fluid normal saline, today sodium is 127, minimally improved. Plan as above. #4 hypertension: Blood pressure stable, continue metoprolol. #5 glomerulonephritis: Continue azathioprine. #6 anxiety/depression: Continue Zoloft. #7 DVT prophylaxis: Subcu heparin. This note was generated with [facility] dictation software. It may contain incorrect words, spelling, and punctuation that were not noted in checking the note before signing. Inpatient E&M: 64231 Subs Hosp L2
--- NOTE | 2020-09-17 09:20 | RAD_ITS ---
STUDY: X-RAY CHEST REASON FOR EXAM: Female, 84 years old. WORSENING SOB, AIDEN TECHNIQUE: AP and lateral views of the chest. COMPARISON: Comparison is made with prior examination dated 09/15/2010. FINDINGS: EKG electrodes are seen. Since prior study, there has been an increase in the right pleural effusion with right basilar infiltration and/or atelectasis. Blunting of the left costophrenic angle. Normal size heart. Prominence of the right paratracheal region. Normal visualized pulmonary arteries. There is atherosclerotic calcification of the aortic arch with tortuosity. There are diffuse degenerative changes of the visualized thoracic spine. Normal visualized ribs, clavicles, and shoulders. There is no demonstrated abnormality of the visualized soft tissue structures of the upper abdomen. RAD/Chest PA and Lateral IMPRESSION: Increasing right pleural effusion with right basilar infiltration and/or atelectasis. Blunting of the left cost phrenic angle. Electronically Signed: Brayan Khan MD at 10:45 EST , Service support ,
[2020-09-17] MEDS: Sodium Polystyrene Sulfonate 15 GM/60 ML UDC PO (10:26)
--- NOTE | 2020-09-17 10:36 | US_ITS ---
PROCEDURE: ULTRASOUND GUIDED THORACENTESIS. DATE: 05/18/2021. INDICATION: Female, 84 years old. Right pleural effusion. PHYSICIAN: Brayan Khan M.D. PROCEDURE: The risks, benefits, and alternatives to the procedure were explained to the patient. The specific risks of bleeding, infection, and pneumothorax requiring chest tube insertion were discussed and accepted. Written informed consent was obtained. Ultrasonographic evaluation of the right lower pleural space was carried out. An adequate pocket was identified. The patient was placed in the sitting, upright position. The overlying skin was prepped and draped in sterile fashion. 1% lidocaine was administered subcutaneously for local anesthesia. Under ultrasound guidance, a 5 [place] thoracentesis needle/catheter system was advanced into the right posterior lower pleural fluid collection. Approximately 450 mL of dark angelita-colored fluid was drained. The catheter was removed, and a sterile dressing was applied. A specimen was collected and sent to the laboratory for analysis, as requested by the referring clinician. The patient tolerated the procedure well. A chest x-ray was ordered. US/Thoracentesis W US IMPRESSION: Ultrasound-guided right thoracentesis. Electronically Signed: Brayan Khan MD at 15:10 EST , Service support ,
[2020-09-17 10:56] LABS: International Normalized Ratio 1.5; Prothrombin Time (Protime)PT. 17.6 SECONDS (11.7-14.9)
--- NOTE | 2020-09-17 13:54 | CON.PCM_ITS ---
Problem List (1) Acute kidney injury superimposed on CKD Status: Acute (2) Pneumonia Status: Acute Qualifiers: Pneumonia type: due to unspecified organism Laterality: right Lung location: lower lobe of lung Qualified Code(s): J18.9 - Pneumonia, unspecified organism (3) Stage 4 chronic kidney disease Status: Chronic (4) Vertigo Status: Chronic (5) Anxiety Status: Chronic (6) Hypertension Status: Chronic Qualifiers: Hypertension type: essential hypertension Qualified Code(s): I10 - Essential (primary) hypertension (7) Glomerulonephritis Status: Chronic Reason for Consult Date of Consultation: 09/17/20 Reason for Consultation: Pleural effusion History of Present Illness: The patient is an 84 year old F, with past medical history listed below, who presented to [facility] on 09/15/2020 secondary to right upper quadrant and flank pain. Patient states that she has had this pain for the last 5 to 7 days prior to presentation. Patient initially felt weak and had developed a cough approximately 4 to 5 days prior to presentation. This had been persistent and she had reported progressive decline in exercise tolerance. Patient had denied any nausea, vomiting, urinary symptoms or shortness of breath at that time. In the ER, patient was normotensive on room air. Patient did have some tenderness to palpation in the right upper quadrant. Renal ultrasound showed a small amount of perihepatic fluid, but a chest x-ray showed a right basilar infiltrate with a small right pleural effusion. Initial laboratory data showed a leukocytosis of 13.8, hemoglobin of 10.7 and platelets of 170. Patient did have some hyponatremia at 124, elevated BUN at 67 and creatinine of 3.56. Liver function was relatively unremarkable, along with pancreatic studies. Patient was given Rocephin, azithromycin and a fluid bolus. Patient had a CT of the abdomen and was admitted to the floor for further evaluation. Earlier today, patient was requiring 2 L nasal cannula oxygen and a repeat chest x-ray showed significant progression of infiltrate and right-sided pleural effusion. Patient also required supplemental oxygen, which was new. Patient was transitioned to vancomycin and Zosyn and the pulmonary consult was obtained. Patient reports that she is never been a smoker and denies any asbestos or TB exposure. Patient has not had a pneumonia previously. Patient denies any aspiration event. Patient has not had a thoracentesis previously. Patient is unaware of any previous pulmonary function test, but does report a history of kidney problems. 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 Patient does admit that she does not tend to see a physician regularly. Review of systems otherwise negative from a constitutional, HEENT, respiratory, cardiovascular, GI, genitourinary, musculoskeletal, skin, neurologic, psychiatric and hematologic system unless stated above. Past Medical History Past Medical History (Chronic Problems): Chronic Problems (Last Updated 09/16/20 @ 10:[address] Nazia Roe MD) Stage 4 chronic kidney disease (Chronic) Left-sided tinnitus (Chronic) Vertigo (Chronic) Anxiety (Chronic) Hypertension (Chronic) Hypertension (Chronic) Glomerulonephritis (Chronic) Medical History: Medical History (Last Updated 09/16/20 @ 10:[address] Nazia Roe MD) Anxiety (Chronic) F41.9 Hypertension (Chronic) I10 Allergies Tetanus Vaccines and Toxoid [Tetanus Vaccines & Toxoid] Allergy (Verified 09/15/20 11:10) Unknown HORSE SERUM TETANUS Home Medications: Ambulatory Orders Medication Instructions Recorded Metoprolol Tartrate [Lopressor 25 mg PO DAILY 04/02/19 (beta po)] azathioprine 50 mg tablet 50 mg PO DAILY@0800 #90 tab 06/05/19 pantoprazole 40 mg tablet,delayed 40 mg PO DAILY #90 tab 06/30/20 release Sertraline HCl [Zoloft] 75 mg PO DAILY 09/15/20 Surgical History: Surgical History (Last Reviewed 06/05/19 @ 09:[address] 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 Nazia Roe MD) Pneumonia (Acute) Objective: All imaging was personally reviewed. Chest x-ray does show a progression of right-sided infiltrate with tracking pleural effusion up the lateral aspect. CT of the abdomen was reviewed and the lung windows shows a narrowing of RLL bronchitis with associated infiltrate. Patient has never had a pulmonary function test at [facility]. - Physical Exam Vitals/I&O's: Vital Signs Temp Pulse Resp BP Pulse Ox 36.4 C L 95 24 H 118/73 95 09/17/20 10:06 09/17/20 10:06 09/17/20 10:06 09/17/20 10:06 09/17/20 10:57 Oxygen Flow Rate (L/min) 2 Oxygen Delivery Method Nasal Cannula Weight: 64.1 kg Body Mass Index (BMI) 24.7 Finger Stick Blood Glucose 130 Orthostatic Vital Signs Start: 09/16/20 13:11 Freq: Status: Active Protocol: Activity Type Activity Date Activity User E-Sign Co-Sign Detail Recorded Client Recorded Date Recorded By Document 09/16/20 13:11 EDGARD [id number] 09/16/20 13:20 EDGARD 09/16/20 13:11 Orthostatic Vitals Standing -Blood Pressure (90/60-120/80) 119/63 -Extremity Use Left Arm -Pulse Rate (60-100) 102 H Sitting -Blood Pressure (90/60-120/80) 128/70 H -Extremity Use Left Arm -Pulse Rate (60-100) 100 Lying -Blood Pressure (90/60-120/80) 134/65 H -Extremity Use Left Arm -Pulse Rate (60-100) 102 H Intake and Output for Last 24 Hours 09/15/20 09/16/20 09/17/20 23:59 23:59 23:59 Intake Total 2495.0 / 2495.0 2086.25 / 2086.25 691.25 / 691.25 Output Total 400 / 400 100 / 100 Balance 2495.0 / 2495.0 1686.25 / 1686.25 591.25 / 591.25 General: Alert, Oriented x3, Cooperative, - - Mild conversational dyspnea. Appears stated age. HEENT: Atraumatic, PERRLA, EOMI, Normocephalic, - - No scleral icterus or injection noted Oral: Moist Mucosa, No Gingival or Mucosal Lesions/ Ulcerations Neck: Supple, No JVD, No Nodes, Trachea Midline Lungs: No rhonchi, No rales, Diminished, Wheezes - Bilateral bases, - - Symmetric expansion Cardiovascular: Regular rate, Regular Rhythm, Normal S1, Normal S2, No murmurs, No rub noted, No Gallop Abdomen: Bowel Sounds Present, Soft, Non Tender, Non-Distended, Obese Extremities: No clubbing, No cyanosis, No edema Skin: No rashes, No breakdown Musculoskeletal: No Tenderness to Palpation of Joints or Extremities Lymphatic: No Cervical, Supraclavicular, or Inguinal Adenopathy Neurological: Cranial nerves II-XII grossly intact, Neuro grossly intact, Motor Exam 5/5 strength throughout Psych/Mental Status: Anxious, Flat Affect Microbiology Past 72 Hours 09/15/20 20:23 Urine, Clean Catch Legionella Antigen - Final 09/15/20 20:26 Urine, Clean Catch Streptococcus pneumoniae Antigen (M - Final 09/15/20 12:27 Mucosa - Nose SARS-CoV-2 Antigen (Rapid) - Final Laboratory Results 09/17/20 06:15: WBC 20.2 H, RBC 2.64 L, Hgb 8.8 L, Hct 25.3 L, MCV 95.8, MCH 33.3 H, MCHC 34.8, RDW Std Deviation 53.4 H, RDW Coeff of Obey 15.1 H, Plt Count 165, MPV 9.9, Immature Gran % (Auto) 2.600 H, Neut % (Auto) 88.6 H, Lymph % (Auto) 1.6 L, [place] % (Auto) 6.7, Eos % (Auto) 0.0, Baso % (Auto) 0.5, Absolute Neuts (auto) 17.8 H, Absolute Lymphs (auto) 0.33 L, Nucleated RBC % 0.1 09/17/20 06:15: Sodium 127 L, Potassium 5.4 H, Chloride 99, Carbon Dioxide 19.0 L, Anion Gap 9, BUN 67 H, Creatinine 3.16 H, Estim Creat Clear Calc 10.67, Est GFR (MDRD) Af Amer 18 L, Est GFR (MDRD) Non-Af 15 L, BUN/Creatinine Ratio 21.2 H , Glucose 98, Calcium 8.1 L 09/17/20 06:15: PT 17.6 H, INR 1.5, APTT 33.0 Current Medications Acetaminophen (Acetaminophen 325 Mg Tablet) 650 mg PO Q6H PRN PRN PRN Reason: Pain Score 1-10/Temp > 100.7 F Last Admin: 09/16/20 21:12 Dose: 650 mg Documented by: Al Hydroxide/Mg Hydroxide (Mag Hydrox/Al Hydrox/Simeth 30 Ml Udc) 30 ml PO Q6H PRN PRN PRN Reason: Gastric Burning Albuterol Sulfate (Albuterol 2.5 Mg/3 Ml Vial.Neb.) 2.5 mg INHALATION Q4H PRN PRN PRN Reason: Shortness of breath, wheezing Azathioprine (Azathioprine 50 Mg Tablet) 50 mg PO DAILY@0800 [facility] Last Admin: 09/17/20 08:39 Dose: 50 mg Documented by: Heparin Sodium (Porcine) (Heparin Injection (Vial) 5,000 Unit/Ml Vial) 5,000 unit SC Q12 [facility] Last Admin: 09/17/20 08:38 Dose: 5,000 unit Documented by: Piperacillin Sod/Tazobactam (Sod 3.375 gm/ Sodium Chloride) 50 mls @ 12.5 mls/hr IV Q12 [facility] Last Infusion: 09/17/20 12:54 Dose: Infused Documented by: Vancomycin IV Pharmacy to Dose (1 ea/ Sodium Chloride) 500 mls @ 250 mls/hr IV PRN PRN; Protocol PRN Reason: Rx to Dose Sodium Chloride () 1,000 mls @ 60 mls/hr IV .[id number] [facility] Last Infusion: 09/17/20 12:54 Dose: 60 mls/hr Documented by: Magnesium Hydroxide (Magnesium Hydroxide 30 Ml Udc) 30 ml PO DAILY PRN PRN PRN Reason: Constipation Melatonin (Melatonin 3 Mg Tablet) 3 mg PO QHS PRN PRN Reason: SLEEP Last Admin: 09/17/20 00:35 Dose: 3 mg Documented by: Metoprolol Tartrate (Metoprolol Tartrate 25 Mg Tablet) 25 mg PO DAILY [facility] Last Admin: 09/17/20 08:43 Dose: 25 mg Documented by: Oxycodone HCl (Oxycodone 5 Mg Tablet) 5 mg PO Q4H PRN PRN PRN Reason: Pain Score 4-5 Last Admin: 09/15/20 18:14 Dose: 5 mg Documented by: Pantoprazole Sodium (Pantoprazole Sodium 40 Mg Tablet) 40 mg PO DAILY [facility] Last Admin: 09/17/20 08:38 Dose: 40 mg Documented by: Senna/Docusate Sodium (Senna/Docusate Sodium 1 Tablet) 2 tablet PO BID PRN PRN PRN Reason: Constipation Sertraline HCl (Sertraline 50 Mg Tablet) 75 mg PO DAILY [facility] Last Admin: 09/17/20 08:38 Dose: 75 mg Documented by: Sodium Chloride (0.9% Saline Lock 10 Ml Syringe) 10 - 40 ml IV UD PRN PRN Reason: SALINE FLUSH Last Admin: 09/16/20 21:03 Dose: 10 ml Documented by: Throat Lozenges (Benzocaine/Menthol 1 Lozenge) 1 lozenge MUCOUS MEM Q2H PRN PRN PRN Reason: sore throat Last Admin: 09/16/20 13:39 Dose: 1 lozenge Documented by: Clinical Impression(s) from Imaging Studies Chest X-Ray 09/17/20 09:20 IMPRESSION: Increasing right pleural effusion with right basilar infiltration and/or atelectasis. Blunting of the left cost phrenic angle. Electronically Signed: Brayan Khan MD at 10:45 EST , Service support , Assessment/Plan All Active Problems (Last Updated 09/16/20 @ 10:[address] Nazia Roe MD) Acute kidney injury superimposed on CKD (Acute) Pneumonia (Acute) RECOMMENDATIONS: 1. Obtain diagnostic and therapeutic thoracentesis 2. Aggressive pulmonary toileting 3. Wean oxygen as tolerated 4. Possible bronchoscopy pending thoracentesis results 5. Continue empiric antibiotics 6. Sputum culture IMPRESSIONS: 1. Acute hypoxic respiratory insufficiency secondary to right lower lobe pneumonia Patient appears to have a loculated right-sided pleural effusion on chest x-ray. Agree with proceeding with therapeutic and diagnostic thoracentesis. Broad-spectrum antibiotics would be indicated until culture data is available to guide narrowing of spectrum. Will provide additional information/recommendation once lab results are available. CT of the abdomen did show some possible narrowing of the right lower lobe. If patient were to have an exudate, CT of the chest and possible bronchoscopy may be necessary. Patient should proceed with aggressive pulmonary toileting for mobilization of secretions. Patient will need a walking oximetry prior to discharge. Patient does have renal dysfunction, also transudate is also a possibility. If glucose is low, empyema would be a consideration. Clinical suspicion for blossoming of infiltrate secondary to fluid resuscitation associated with addressing her acute kidney injury. Patient does not appear to require BiPAP or other rescue measures from a pulmonary perspective at this time. 2. Acute kidney injury on stage IV CKD Patient's baseline creatinine appears to be between 2 and 3. Patient has slowly improved through the day. Patient has received Kayexalate secondary to hypernatremia. 3. Hyponatremia/hypertension/glomerulonephritis/anxiety/depression/advanced age Complicates care, management, recovery and prognosis. Okay to continue with baseline medications for now. Blood pressure appears to be stable. We will need to watch fluid status closely given problems 1 and 2. Inpatient E&M: 92499 Init Hosp L3
[2020-09-17 14:56] LABS: LDH 234 U/L (84-246)
--- NOTE | 2020-09-17 15:00 | RAD_ITS ---
STUDY: X-RAY CHEST REASON FOR EXAM: Female, 84 years old. POST RIGHT SIDE THORA TECHNIQUE: AP inspiration and expiration views. COMPARISON: Comparison is made with prior examination dated 09/17/2020 at 9:24 AM. FINDINGS: The patient is status post right thoracentesis. Persistent pleural-parenchymal changes at the right lung base. Blunting of the left costophrenic angle. RAD/Chest Insp/Exp 2 View IMPRESSION: Status post right thoracentesis. There is no evidence of pneumothorax. Electronically Signed: Brayan Khan MD at 15:16 EST , Service support ,
[2020-09-17 15:13] LABS: Cytology, Body Fluid / CSF SEE PATHOLOGY REPORT
[2020-09-17] MEDS: Magnesium Hydroxide 30 ML UDC PO (17:59)
[2020-09-17 18:19] LABS: Glucose, Body Fluid 13 mg/dL (40-70); LDH,Body Fluid > 4000 Units/l (Not Establ.); Protein, Body Fluid 4.6 g/dL (Not Establ.)
[2020-09-17 18:52] LABS: Potassium 4.2 mmol/L (3.5-5.1)
--- NOTE | 2020-09-17 19:40 | EKG12_ITS ---
Test Reason : TACHYCARDIA Blood Pressure : / mmHG Vent. Rate : 125 BPM Atrial Rate : 122 BPM P-R Int : 000 ms QRS Dur : 084 ms QT Int : 324 ms P-R-T Axes : 000 000 -11 degrees QTc Int : 467 ms Atrial fibrillation Abnormal ECG Confirmed by WALKER OVIEDO, SALLY ([id number]), features editor DAVE CARDENAS ([id number]) on 09/23/2020 2:59:43 PM Referred By: ALY VERONICA Confirmed By:SALLY CARDOSO MD
--- NOTE | 2020-09-17 20:04 | PCM.PN.BLA ---
Progress Note Nurse reported patient heart rate is in the 120s and 90s irregularly. Order to get stat EKG. Stat EKG returned as A. fib with RVR with rate of 125. Check TSH. Check magnesium. Patient is on metoprolol p.o. Will give metoprolol IV 5 mg every 1 hour for heart rate of more than 110. Will change metoprolol titrate 25 mg p.o. daily to metoprolol titrate 25 mg twice daily. Patient had thoracentesis on 09/17/2020. On prophylactic dose of heparin. Will not start therapeutic dose of heparin at this time. Transfer to progressive care unit for new onset A. fib. Review of record showed that last echocardiogram was in 2013. At that time ejection fraction was normal and there were mild valvular abnormalities. Will get an echocardiogram. STROKE Vital Signs/Narrative: Vital Signs Temp Pulse Resp BP Pulse Ox 09/17/20 19:47 98.2 F 113 H 28 H 113/68 96
--- NOTE | 2020-09-17 20:35 | NURSING ---
report called to scout in pcu. pt transferring to [id number]
--- NOTE | 2020-09-17 20:56 | ECHOD_ITS ---
Reason For Study: A. fib Procedure This was a 2D Doppler, Color Flow transthoracic echocardiogram. Exam performed portable in patient room. Left Ventricle Normal LV size. normal LV thickness. Septal motion consistent with IVCD. The 3D full volume ejection fraction is EF 55-60% %. Lateral-Basal: Hypokinetic. Right Ventricle Normal right ventricle. Normal systolic function. Atria Normal left atrium. Normal right atrium. Normal atrial septum. Mitral Valve There is mild to moderate mitral annular calcification. Mild-Moderate (1-2+) eccentric mitral valve insufficiency. Tricuspid Valve Normal tricuspid valve. Mild to moderate (1-2+) tricuspid valve insufficiency. Aortic Valve Mild diffuse aortic valve calcification. Mild (1+) eccentric aortic valve insufficiency. Pulmonic Valve The pulmonic valve is not well visualized. Great Vessels Normal aortic root. Pericardium/Pleural No pericardial effusion. Moderate size left pleural effusion. MMode/2D Measurements & Calculations LVIDd: 4.8 cm IVSd: 0.97 cm Ao root diam: 3.2 cm LVIDs: 2.9 cm LVPWd: 1.0 cm RVDd: 3.4 cm FS: 40.5 % LAV(MOD-bp): 73.8 ml LA A4 area: 25.6 cm2 LA dimension(2D): 3.0 cm LAV(MOD-bp) Indexed: 44.8 ml/m2 LAV(MOD-sp2): 52.4 ml LAV(MOD-sp4): 79.3 ml RA A4 area: 18.9 cm2 Doppler Measurements & Calculations MV E max rogers: 63.5 cm/sec Lat Peak E' Rogers: 7.4 cm/sec Med Peak E' Rogers: 7.1 cm/sec MV A max rogers: 94.8 cm/sec E/E' lat: 8.5 E/E' med: 8.9 MV E/A: 0.67 Ao V2 max: 173.5 cm/sec AI max rogers: 359.6 cm/sec PA V2 max: 87.2 cm/sec Ao max P.0 mmHg AI max P.7 mmHg AI dec slope: 300.8 cm/sec2 AI P1/2t: 350.2 msec TR max rogers: 304.6 cm/sec TR max P.1 mmHg Interpretation Summary Normal LV size. EF 55-60% Mild -Moderate MR Mild-Moderate TR MILD AVR Normal IVC with normal Inspiratory collapse. Ordering Physician: Jerald Kohli Referring Physician: Tomasa Desai M.D. Performed By: Emilee Luke RDCS
[2020-09-17] MEDS: Metoprolol Tartrate 5 MG/5 ML Vial IV (20:58)
[2020-09-17] MEDS: 0.9% Saline Lock 10 ML Syringe IV (21:01)
[2020-09-17] MEDS: MELATONIN 10 MG TABLET PO (21:13)
--- NOTE | 2020-09-17 21:15 | NURSING ---
Tried to call Darnell Rosales who is the pt's son but was unable to reach him via cell phone. Contacted Pamela Velasco, daughter, at [phone], and advised her that her mother had been transferred to PCU room 111 at around 2030 for new onset Afib. She asked me if she and Darnell could switch out as far as primary visitors and I explained that we could not do that.
[2020-09-17 21:19] LABS: Magnesium 2.6 mg/dL (1.6-2.6); Thyroid Stim Hormone (TSH) 0.44 uIU/mL (0.358-3.74)
--- NOTE | 2020-09-17 21:43 | EKG12_ITS ---
Test Reason : CONVERTED Blood Pressure : / mmHG Vent. Rate : 089 BPM Atrial Rate : 089 BPM P-R Int : 166 ms QRS Dur : 086 ms QT Int : 358 ms P-R-T Axes : 041 021 018 degrees QTc Int : 435 ms Normal sinus rhythm Normal ECG When compared with ECG of 17-SEP-2020 19:54, MANUAL COMPARISON REQUIRED, DATA IS UNCONFIRMED Confirmed by GLENYS OVIEDO, QUIANA ([id number]), fan mail editor JUDITH TAYLOR ([id number]) on 09/29/2020 12:57:39 PM Referred By: Confirmed By:ANDREINA VERONICA MD
[2020-09-18] VITALS (10 sets, daily range): BP systolic 123–130; BP diastolic 51–62; PULSE 89–103; RESP 16–19; TEMP 36.6–36.7; O2SAT 94–96
[2020-09-18 05:52] LABS: Absolute Neutrophil Count 19.4 X10^3/uL (2.0-7.7); Basophil# 0.08 X10^3/uL; Basophil% 0.4 % (0-1); Eosinophils% 0.4 % (0-5); Hematocrit 26.7 % (37-47); Hemoglobin 9.3 g/dL (12.0-15.0); Lymphocyte % 2.7 % (19-41); Mean Corp Hgb Conc 34.8 g/dL (32-36); Mean Corpuscular Hgb 33.7 pg (27.0-32.0); Mean Corpuscular Volume 96.7 fL (81-99); Mean Platelet Vol. 10.4 fl (6.2-12.0); Monocyte# 1.37 X10^3/uL; Monocyte% 6.2 % (0-10); NRBC Flagged by Analyzer 0.1 % (0-5); Neutrophil # 19.43 X10^3/uL (2.7-7.7); Neutrophil % 87.2 % (47-70); POSITIVE DIFFERENTIAL YES; POSITIVE MORPHOLOGY YES; Platelet Count 195 K/mm3 (150-450); RBC Distribution Width CV 15.6 % (11.6-14.6); RBC Distribution Width SD 54.9 fl (35.1-43.9); Red Blood Count 2.76 M/mm3 (4.2-5.4); White Blood Count 22.3 K/mm3 (4.4-11.0)
[2020-09-18 06:15] LABS: Differential Indicated SCAN CRITERIA MET
[2020-09-18 06:24] LABS: Burr Cells RARE; Differential Comment SCANNED; Ovalocyte RARE
[2020-09-18 06:25] LABS: Hypochromasia RARE
[2020-09-18 06:31] LABS: Anion Gap 9 (5-15); BUN 70 mg/dL (7-18); BUN/Creat Ratio 21.3 RATIO (10-20); Calcium,Total 8.4 mg/dL (8.5-10.1); Chloride 102 mmol/L (98-107); Creatinine, Serum 3.29 mg/dL (0.55-1.02); EST Glomerular Filtration Rate 14 mL/min (>60); Est Glom Filt Rate - Afr Amer 17 mL/min (>60); Estimated Creatinine Clearance 10.25 ml/min; Glucose 72 mg/dL (74-106); Potassium 4.6 mmol/L (3.5-5.1); Sodium Level 131 mmol/L (136-145)
[2020-09-18 06:36] LABS: Vancomycin, Random Level 13.8 ug/mL (0.0-15.0)
--- NOTE | 2020-09-18 07:19 | PCM.RX.CS ---
Consult Pharmacy has been consulted to manage selected antiobiotic: Vancomycin Type of Consult: Follow-up Labs: Sodium 131 mmol/L (136-145) L 09/18/20 05:30 Potassium 4.6 mmol/L (3.5-5.1) 09/18/20 05:30 Chloride 102 mmol/L (98-107) 09/18/20 05:30 Carbon Dioxide 20.0 mmol/L (21.0-32.0) L 09/18/20 05:30 Anion Gap 9 (5-15) 09/18/20 05:30 BUN 70 mg/dL (7-18) H 09/18/20 05:30 Creatinine 3.29 mg/dL (0.55-1.02) H 09/18/20 05:30 Est GFR (MDRD) Af Amer 17 mL/min (>60) L 09/18/20 05:30 Est GFR (MDRD) Non-Af 14 mL/min (>60) L 09/18/20 05:30 BUN/Creatinine Ratio 21.3 RATIO (10-20) H 09/18/20 05:30 Glucose 72 mg/dL (74-106) L 09/18/20 05:30 Random Vancomycin 13.8 ug/mL (0.0-15.0) 09/18/20 05:30 Microbiology: Microbiology 09/15/20 20:23 Urine, Clean Catch Legionella Antigen - Final 09/15/20 20:26 Urine, Clean Catch Streptococcus pneumoniae Antigen (M - Final 09/15/20 12:27 Mucosa - Nose SARS-CoV-2 Antigen (Rapid) - Final Goal Trough: 15-20 mcg/mL Pharmacy Plan for Drug Dosing: VANCOMYCIN LEVEL RECEIVED Current Vancomycin Dose: 1500mg IV x1 administered 09/16 @1324 Number of Doses Received: 1 (dosing based on levels d/t renal fxn) Vancomycin Level: 13.8 Hours Since Last Dose: ~40hrs Renal Function: 3.29 / 10 mL/min Renal Function Trend: stable Lab/Micro: Pending Vancomycin Plan/Comments: Will give x1 dose of 1000mg IV x1 this morning. Will order another random level in 2 days and give another dose based off of that level. Pending Level: 09/20/20 with AM labs Pharmacy Service will continue to monitor and adjust dosing as required.
[2020-09-18] MEDS: 0.9% Normal Saline 1,000 ML 60 ML IV (08:08)
[2020-09-18] MEDS: Vancomycin IV 1,000 MG/200 ML BAG 200 MG IV (08:08)
--- NOTE | 2020-09-18 08:27 | PCM.PROGNOTE ---
Patient Problems: Active and Suspected Problems (Last Updated 09/16/20 @ 10:[address] Nazia Roe MD) Acute kidney injury superimposed on CKD (Acute) Pneumonia (Acute) Subjective: Chief complaint: Follow-up after admission for healthcare associated pneumonia, right pleural effusion, AIDEN on CKD and overnight, she developed new onset paroxysmal A. fib with RVR. Patient seen and examined. Last night, she developed new onset A. fib with RVR. Now, she is in sinus tachycardia. Patient is poor informant. She mentioned that she is okay, denies significant shortness of breath. Still having some cough. She has been afebrile, blood pressure and vitals are stable, pulse ox is 94% on 2 L. - Physical Exam Vitals/I&O's: Vital Signs Temp Pulse Resp BP Pulse Ox 97.9 F 95 19 H 130/51 H 94 09/18/20 02:30 09/18/20 07:00 09/18/20 02:30 09/18/20 02:30 09/18/20 02:30 Oxygen Flow Rate (L/min) [3] 2 Oxygen Flow Rate (L/min) [2] 2 Oxygen Flow Rate (L/min) [1 ( 2 Initial Baseline)] Oxygen Flow Rate (L/min) 2 Oxygen Delivery Method [3] Nasal Cannula Oxygen Delivery Method [2] Nasal Cannula Oxygen Delivery Method [1 ( Nasal Cannula Initial Baseline)] Oxygen Delivery Method Nasal Cannula Weight: 141 lb 5.061 oz Body Mass Index (BMI) 24.7 Finger Stick Blood Glucose 130 Orthostatic Vital Signs Start: 09/16/20 13:11 Freq: Status: Active Protocol: Activity Type Activity Date Activity User E-Sign Co-Sign Detail Recorded Client Recorded Date Recorded By Document 09/16/20 13:11 EDGARD [id number] 09/16/20 13:20 EDGARD 09/16/20 13:11 Orthostatic Vitals Standing -Blood Pressure (90/60-120/80) 119/63 -Extremity Use Left Arm -Pulse Rate (60-100) 102 H Sitting -Blood Pressure (90/60-120/80) 128/70 H -Extremity Use Left Arm -Pulse Rate (60-100) 100 Lying -Blood Pressure (90/60-120/80) 134/65 H -Extremity Use Left Arm -Pulse Rate (60-100) 102 H Intake and Output for Last 24 Hours 09/16/20 09/17/20 09/18/20 23:59 23:59 23:59 Intake Total 2086.25 / 2086.25 841.25 / 841.25 1034.38 / 1034.38 Output Total 400 / 400 900 / 900 Balance 1686.25 / 1686.25 -58.75 / -58.75 1034.38 / 1034.38 General: Alert, Cooperative, No apparent distress, Well nourished HEENT: Atraumatic, PERRLA, EOMI, Normocephalic Oral: Moist Mucosa, No Gingival or Mucosal Lesions/ Ulcerations Neck: Supple, No JVD, Negative Carotid Bruits, Trachea Midline, Thyroid Normal Size and Texture Lungs: No wheeze, No rales, Diminished, Rales, Rhonchi, - - Decreased breath sounds at the bases, more on the right base with coarse crackles. Cardiovascular: Regular rate, Regular Rhythm, Normal S1, Normal S2, PMI Normal, Tachycardic Abdomen: Bowel Sounds Present, Soft, Non Tender, Non-Distended, No Hepato-splenomegaly Extremities: No clubbing, No cyanosis, No edema Skin: No rashes, No breakdown Lymphatic: No Cervical, Supraclavicular, or Inguinal Adenopathy Neurological: Cranial nerves II-XII grossly intact, Motor Exam 5/5 strength throughout Psych/Mental Status: Appropriate, Flat Affect Microbiology Past 72 Hours 09/15/20 20:23 Urine, Clean Catch Legionella Antigen - Final 09/15/20 20:26 Urine, Clean Catch Streptococcus pneumoniae Antigen (M - Final 09/15/20 12:27 Mucosa - Nose SARS-CoV-2 Antigen (Rapid) - Final Laboratory Results 09/17/20 06:15: PT 17.6 H, INR 1.5, APTT 33.0 09/17/20 06:15: Lactate Dehydrogenase 234 09/17/20 10:36: Fluid Glucose 13 L*, Fluid Total Protein 4.6, Fluid LDH > 4000 09/17/20 10:36: Fluid pH Pending 09/17/20 15:04: Miscellaneous Cytology Pending 09/17/20 15:05: Fluid Source Cancelled, Fluid Color Cancelled, Fluid Appearance Cancelled, Fluid WBC Cancelled, Fluid RBC Cancelled, Fluid Tot Cell Count Cancelled, Fld Polynuclear WBCs # Cancelled, Fld Polynuclear WBCs % Cancelled, Fluid Mononuclear WBCs Cancelled, Fld Mononuclear WBCs % Cancelled, Fluid Neutrophils Cancelled, Fluid Lymphocytes Cancelled, Fluid Monocytes Cancelled, Fluid Plasma Cells Cancelled, Fluid Macrophages Cancelled, Fld Mesothelial Cells Cancelled, Fluid Other Cells Cancelled, Fl Pathologist Comment Cancelled, Fluid Comment 2 Cancelled 09/17/20 18:23: Potassium 4.2 09/17/20 18:23: TSH 0.44 09/17/20 18:23: Magnesium 2.6 09/18/20 05:30: Random Vancomycin 13.8 09/18/20 05:30: WBC 22.3 H, RBC 2.76 L, Hgb 9.3 L, Hct 26.7 L, MCV 96.7, MCH 33.7 H, MCHC 34.8, RDW Std Deviation 54.9 H, RDW Coeff of Obey 15.6 H, Plt Count 195, MPV 10.4, Immature Gran % (Auto) 3.100 H, Neut % (Auto) 87.2 H, Lymph % (Auto) 2.7 L, [place]he % (Auto) 6.2, Eos % (Auto) 0.4, Baso % (Auto) 0.4, Absolute Neuts (auto) 19.4 H, Absolute Lymphs (auto) 0.60 L, Nucleated RBC % 0.1, Differential Comment SCANNED, Hypochromasia RARE, Ovalocytes RARE, Imperial Cells RARE 09/18/20 05:30: Sodium 131 L, Potassium 4.6, Chloride 102, Carbon Dioxide 20.0 L, Anion Gap 9, BUN 70 H, Creatinine 3.29 H, Estim Creat Clear Calc 10.25, Est GFR (MDRD) Af Amer 17 L, Est GFR (MDRD) Non-Af 14 L, BUN/Creatinine Ratio 21.3 H, Glucose 72 L, Calcium 8.4 L Clinical Impression(s) from Imaging Studies Chest X-Ray 09/17/20 09:20 IMPRESSION: Increasing right pleural effusion with right basilar infiltration and/or atelectasis. Blunting of the left cost phrenic angle. Electronically Signed: Brayan Khan MD at 10:45 EST , Service support , Thoracentesis Ultrasound 09/17/20 10:36 IMPRESSION: Ultrasound-guided right thoracentesis. Electronically Signed: Brayan Khan MD at 15:10 EST , Service support , Chest X-Ray 09/17/20 15:00 IMPRESSION: Status post right thoracentesis. There is no evidence of pneumothorax. Electronically Signed: Brayan Khan MD at 15:16 EST , Service support , Current Medications Acetaminophen (Acetaminophen 325 Mg Tablet) 650 mg PO Q6H PRN PRN PRN Reason: Pain Score 1-10/Temp > 100.7 F Last Admin: 09/16/20 21:12 Dose: 650 mg Documented by: Al Hydroxide/Mg Hydroxide (Mag Hydrox/Al Hydrox/Simeth 30 Ml Udc) 30 ml PO Q6H PRN PRN PRN Reason: Gastric Burning Albuterol Sulfate (Albuterol 2.5 Mg/3 Ml Vial.Neb.) 2.5 mg INHALATION Q4H PRN PRN PRN Reason: Shortness of breath, wheezing Azathioprine (Azathioprine 50 Mg Tablet) 50 mg PO DAILY@0800 [facility] Last Admin: 09/17/20 08:39 Dose: 50 mg Documented by: Heparin Sodium (Porcine) (Heparin Injection (Vial) 5,000 Unit/Ml Vial) 5,000 unit SC Q12 [facility] Last Admin: 09/17/20 21:15 Dose: 5,000 unit Documented by: Piperacillin Sod/Tazobactam (Sod 3.375 gm/ Sodium Chloride) 50 mls @ 12.5 mls/hr IV Q12 [facility] Last Infusion: 09/18/20 00:03 Dose: Infused Documented by: Vancomycin IV Pharmacy to Dose (1 ea/ Sodium Chloride) 500 mls @ 250 mls/hr IV PRN PRN; Protocol PRN Reason: Rx to Dose Sodium Chloride () 1,000 mls @ 60 mls/hr IV .[id number] [facility] Last Infusion: 09/18/20 08:13 Dose: 0 mls/hr Documented by: Vancomycin HCl (Vancomycin) 1,000 mg in 200 mls @ 200 mls/hr IV X1 ONE Stop: 09/18/20 08:59 Last Admin: 09/18/20 08:08 Dose: 200 mls/hr Documented by: Magnesium Hydroxide (Magnesium Hydroxide 30 Ml Udc) 30 ml PO DAILY PRN PRN PRN Reason: Constipation Last Admin: 09/17/20 17:59 Dose: 30 ml Documented by: Melatonin (Melatonin 10 Mg Tablet) 10 mg PO QHS PRN PRN Reason: SLEEP Last Admin: 09/17/20 21:13 Dose: 10 mg Documented by: Metoprolol Tartrate (Metoprolol Tartrate 25 Mg Tablet) 25 mg PO DAILY [facility] Last Admin: 09/17/20 08:43 Dose: 25 mg Documented by: Metoprolol Tartrate (Metoprolol Tartrate 5 Mg/5 Ml Vial) 5 mg IV Q1H PRN PRN PRN Reason: HR > 110 Last Admin: 09/17/20 20:58 Dose: 5 mg Documented by: Metoprolol Tartrate (Metoprolol Tartrate 25 Mg Tablet) 25 mg PO BID [facility] Oxycodone HCl (Oxycodone 5 Mg Tablet) 5 mg PO Q4H PRN PRN PRN Reason: Pain Score 4-5 Last Admin: 09/15/20 18:14 Dose: 5 mg Documented by: Pantoprazole Sodium (Pantoprazole Sodium 40 Mg Tablet) 40 mg PO DAILY [facility] Last Admin: 09/17/20 08:38 Dose: 40 mg Documented by: Senna/Docusate Sodium (Senna/Docusate Sodium 1 Tablet) 2 tablet PO BID PRN PRN PRN Reason: Constipation Sertraline HCl (Sertraline 50 Mg Tablet) 75 mg PO DAILY [facility] Last Admin: 09/17/20 08:38 Dose: 75 mg Documented by: Sodium Chloride (0.9% Saline Lock 10 Ml Syringe) 10 - 40 ml IV UD PRN PRN Reason: SALINE FLUSH Last Admin: 09/17/20 21:01 Dose: 10 ml Documented by: Throat Lozenges (Benzocaine/Menthol 1 Lozenge) 1 lozenge MUCOUS MEM Q2H PRN PRN PRN Reason: sore throat Last Admin: 09/16/20 13:39 Dose: 1 lozenge Documented by: Medical Necessity - Tobacco Use Smoking Status: Never smoker Tobacco Use: Non-smoker Assessment/Plan All Active Problems (Last Updated 09/16/20 @ 10:[address] Nazia Roe MD) Acute kidney injury superimposed on CKD (Acute) Pneumonia (Acute) This is an 84 years old female patient presented to the emergency room because of shortness of breath and right lateral chest pain, found to have right lower lobe consolidation with small pleural effusion consistent with pneumonia, also found to have AIDEN on CKD and she was admitted for treatment. #1 right lower lobe healthcare associated pneumonia/right pleural effusion: Remained on IV Zosyn and vancomycin. Status post right thoracentesis, pleural fluid analysis pending. Patient has been afebrile, WBC is trending up, remains on 2 L of oxygen. Pneumococcal and urinary antigens were negative. COVID-19 antigen and PCR was negative. Pulmonology on the case. We are still awaiting the remaining results of the pleural fluid analysis. Plan: Continue same treatment, repeat CBC and BMP tomorrow morning. #2 acute kidney injury on top of stage IV chronic kidney disease/hyperkalemia: She is on minimal IV fluids for hydration. Today's creatinine is 3.29, slightly up from yesterday. Today's potassium is 4.6, back to normal. Her baseline creatinine has been around 2 to 3 mg/dL in the last 4 to 5 years. Plan to continue same treatment, repeat BMP tomorrow morning. #3 new onset paroxysmal A. fib with RVR: She converted back to sinus rhythm, now she is in sinus tachycardia, heart rate has been around 105. EKG from last night and this morning reviewed. Started on metoprolol twice daily for rate control. Her serum electrolytes including potassium magnesium were normal as well as TSH. 2D echocardiogram ordered. I do not think the patient will be a candidate for anticoagulation at this time. #4 hyponatremia: It is likely due to sodium loss through the kidneys secondary to glomerulonephritis. She is on IV fluid normal saline, today sodium is 131, improving. #5 hypertension: Blood pressure stable, continue metoprolol. #6 glomerulonephritis: Continue azathioprine. #7 anxiety/depression: Continue Zoloft. #8 DVT prophylaxis: Subcu heparin. This note was generated with [employer]ynstraation software. It may contain incorrect words, spelling, and punctuation that were not noted in checking the note before signing. Inpatient E&M: 17787 Subs Hosp L3
--- NOTE | 2020-09-18 09:12 | PN_ITS ---
Patient Problems: Active and Suspected Problems (Last Updated 09/16/20 @ 10:[address] Nazia Roe MD) Acute kidney injury superimposed on CKD (Acute) Pneumonia (Acute) Subjective: Patient developed A. fib with RVR overnight requiring transfer to telemetry. Patient states she feels subjectively unchanged despite 450 cc removed with thoracentesis yesterday. No complications from thoracentesis were reported. Objective: Called laboratory to check on remaining thoracentesis labs. Gram stain is reportedly forthcoming. Differential is not available at this time, but glucose and LDH are suggestive of empyema. Post procedure chest x-ray is relatively unchanged. - Physical Exam Vitals/I&O's: Vital Signs Temp Pulse Resp BP Pulse Ox 36.6 C 95 19 H 130/51 H 94 09/18/20 02:30 09/18/20 07:00 09/18/20 02:30 09/18/20 02:30 09/18/20 02:30 Oxygen Flow Rate (L/min) [3] 2 Oxygen Flow Rate (L/min) [2] 2 Oxygen Flow Rate (L/min) [1 ( 2 Initial Baseline)] Oxygen Flow Rate (L/min) 2 Oxygen Delivery Method [3] Nasal Cannula Oxygen Delivery Method [2] Nasal Cannula Oxygen Delivery Method [1 ( Nasal Cannula Initial Baseline)] Oxygen Delivery Method Nasal Cannula Weight: 64.1 kg Body Mass Index (BMI) 24.7 Finger Stick Blood Glucose 130 Orthostatic Vital Signs Start: 09/16/20 13:11 Freq: Status: Active Protocol: Activity Type Activity Date Activity User E-Sign Co-Sign Detail Recorded Client Recorded Date Recorded By Document 09/16/20 13:11 [id number] 09/16/20 13:20 09/16/20 13:11 Orthostatic Vitals Standing -Blood Pressure (90/60-120/80) 119/63 -Extremity Use Left Arm -Pulse Rate (60-100) 102 H Sitting -Blood Pressure (90/60-120/80) 128/70 H -Extremity Use Left Arm -Pulse Rate (60-100) 100 Lying -Blood Pressure (90/60-120/80) 134/65 H -Extremity Use Left Arm -Pulse Rate (60-100) 102 H Intake and Output for Last 24 Hours 09/16/20 09/17/20 09/18/20 23:59 23:59 23:59 Intake Total 2086.25 / 2086.25 841.25 / 841.25 1034.38 / 1034.38 Output Total 400 / 400 900 / 900 Balance 1686.25 / 1686.25 -58.75 / -58.75 1034.38 / 1034.38 General: Alert, Oriented x3, Cooperative, - - Mild distress. HEENT: Atraumatic, PERRLA, EOMI, Normocephalic, - - Slight scleral injection without icterus Oral: Moist Mucosa, No Gingival or Mucosal Lesions/ Ulcerations Neck: Supple, No JVD, No Nodes, Trachea Midline Lungs: No rhonchi, No rales, Diminished - Right greater than left, Wheezes - Right base Cardiovascular: Normal S1, Normal S2, No murmurs, Irregular Rate, No rub noted, No Gallop Abdomen: Bowel Sounds Present, Soft, Non Tender, Non-Distended Extremities: No clubbing, No cyanosis, No edema Skin: No rashes, No breakdown Musculoskeletal: No Tenderness to Palpation of Joints or Extremities Lymphatic: No Cervical, Supraclavicular, or Inguinal Adenopathy Neurological: Cranial nerves II-XII grossly intact, Neuro grossly intact, Motor Exam 5/5 strength throughout Psych/Mental Status: Alert and oriented to time, place, person, mood and affect Microbiology Past 72 Hours 09/15/20 20:23 Urine, Clean Catch Legionella Antigen - Final 09/15/20 20:26 Urine, Clean Catch Streptococcus pneumoniae Antigen (M - Fin al 09/15/20 12:27 Mucosa - Nose SARS-CoV-2 Antigen (Rapid) - Final Laboratory Results 09/17/20 06:15: PT 17.6 H, INR 1.5, APTT 33.0 09/17/20 06:15: Lactate Dehydrogenase 234 09/17/20 10:36: Fluid Glucose 13 L*, Fluid Total Protein 4.6, Fluid LDH > 4000 09/17/20 10:36: Fluid pH Pending 09/17/20 15:04: Miscellaneous Cytology Pending 09/17/20 15:05: Fluid Source Cancelled, Fluid Color Cancelled, Fluid Appearance Cancelled, Fluid WBC Cancelled, Fluid RBC Cancelled, Fluid Tot Cell Count Cancelled, Fld Polynuclear WBCs # Cancelled, Fld Polynuclear WBCs % Cancelled, Fluid Mononuclear WBCs Cancelled, Fld Mononuclear WBCs % Cancelled, Fluid Angela trophils Cancelled, Fluid Lymphocytes Cancelled, Fluid Monocytes Cancelled, Fluid Plasma Cells Cancelled, Fluid Macrophages Cancelled, Fld Mesothelial Cells Cancelled, Fluid Other Cells Cancelled, Fl Pathologist Comment Cancelled, Fluid Comment 2 Cancelled 09/17/20 18:23: Potassium 4.2 09/17/20 18:23: TSH 0.44 09/17/20 18:23: Magnesium 2.6 09/18/20 05:30: Random Vancomycin 13.8 09/18/20 05:30: WBC 22.3 H, RBC 2.76 L, Hgb 9.3 L, Hct 26.7 L, MCV 96.7, MCH 33.7 H, MCHC 34.8, RDW Std Deviation 54.9 H, RDW Coeff of Obey 15.6 H, Plt Count 195, MPV 10.4, Immature Gran % (Auto) 3.100 H, Neut % (Auto) 87.2 H, Lymph % (Auto) 2.7 L, [place] % (Auto) 6.2, Eos % (Auto) 0.4, Baso % (Auto) 0.4, Absolute Neuts (auto) 19.4 H, Absolute Lymphs (auto) 0.60 L, Nucleated RBC % 0.1, Differential Comment SCANNED, Hypochromasia RARE, Ovalocytes RARE, [place] Cells RARE 09/18/20 05:30: Sodium 131 L, Potassium 4.6, Chloride 102, Carbon Dioxide 20.0 L , Anion Gap 9, BUN 70 H, Creatinine 3.29 H, Estim Creat Clear Calc 10.25, Est GFR (MDRD) Af Amer 17 L, Est GFR (MDRD) Non-Af 14 L, BUN/Creatinine Ratio 21.3 H , Glucose 72 L, Calcium 8.4 L Current Medications Acetaminophen (Acetaminophen 325 Mg Tablet) 650 mg PO Q6H PRN PRN PRN Reason: Pain Score 1-10/Temp > 100.7 F Last Admin: 09/16/20 21:12 Dose: 650 mg Documented by: Al Hydroxide/Mg Hydroxide (Mag Hydrox/Al Hydrox/Simeth 30 Ml Udc) 30 ml PO Q6H PRN PRN PRN Reason: Gastric Burning Albuterol Sulfate (Albuterol 2.5 Mg/3 Ml Vial.Neb.) 2.5 mg INHALATION Q4H PRN PRN PRN Reason: Shortness of breath, wheezing Azathioprine (Azathioprine 50 Mg Tablet) 50 mg PO DAILY@0800 [facility] Last Admin: 09/17/20 08:39 Dose: 50 mg Documented by: Heparin Sodium (Porcine) (Heparin Injection (Vial) 5,000 Unit/Ml Vial) 5,000 unit SC Q12 [facility] Last Admin: 09/17/20 21:15 Dose: 5,000 unit Documented by: Piperacillin Sod/Tazobactam (Sod 3.375 gm/ Sodium Chloride) 50 mls @ 12.5 mls/hr IV Q12 [facility] Last Infusion: 09/18/20 00:03 Dose: Infused Documented by: Vancomycin IV Pharmacy to Dose (1 ea/ Sodium Chloride) 500 mls @ 250 mls/hr IV PRN PRN; Protocol PRN Reason: Rx to Dose Sodium Chloride () 1,000 mls @ 60 mls/hr IV .[id number] [facility] Last Infusion: 09/18/20 08:13 Dose: 0 mls/hr Documented by: Magnesium Hydroxide (Magnesium Hydroxide 30 Ml Udc) 30 ml PO DAILY PRN PRN PRN Reason: Constipation Last Admin: 09/17/20 17:59 Dose: 30 ml Documented by: Melatonin (Melatonin 10 Mg Tablet) 10 mg PO QHS PRN PRN Reason: SLEEP Last Admin: 09/17/20 21:13 Dose: 10 mg Documented by: Metoprolol Tartrate (Metoprolol Tartrate 5 Mg/5 Ml Vial) 5 mg IV Q1H PRN PRN PRN Reason: HR > 110 Last Admin: 09/17/20 20:58 Dose: 5 mg Documented by: Metoprolol Tartrate (Metoprolol Tartrate 25 Mg Tablet) 25 mg PO BID [facility] Oxycodone HCl (Oxycodone 5 Mg Tablet) 5 mg PO Q4H PRN PRN PRN Reason: Pain Score 4-5 Last Admin: 09/15/20 18:14 Dose: 5 mg Documented by: Pantoprazole Sodium (Pantoprazole Sodium 40 Mg Tablet) 40 mg PO DAILY [facility] Last Admin: 09/17/20 08:38 Dose: 40 mg Documented by: Senna/Docusate Sodium (Senna/Docusate Sodium 1 Tablet) 2 tablet PO BID PRN PRN PRN Reason: Constipation Sertraline HCl (Sertraline 50 Mg Tablet) 75 mg PO DAILY LO Last Admin: 09/17/20 08:38 Dose: 75 mg Documented by: Sodium Chloride (0.9% Saline Lock 10 Ml Syringe) 10 - 40 ml IV UD PRN PRN Reason: SALINE FLUSH Last Admin: 09/17/20 21:01 Dose: 10 ml Documented by: Throat Lozenges (Benzocaine/Menthol 1 Lozenge) 1 lozenge MUCOUS MEM Q2H PRN PRN PRN Reason: sore throat Last Admin: 09/16/20 13:39 Dose: 1 lozenge Documented by: Clinical Impression(s) from Imaging Studies Chest X-Ray 09/17/20 09:20 IMPRESSION: Increasing right pleural effusion with right basilar infiltration and/or atelectasis. Blunting of the left cost phrenic angle. Electronically Signed: Brayan Khan MD at 10:45 EST , Service support , Thoracentesis Ultrasound 09/17/20 10:36 IMPRESSION: Ultrasound-guided right thoracentesis. Electronically Signed: Brayan Khan MD at 15:10 EST , Service support , Chest X-Ray 09/17/20 15:00 IMPRESSION: Status post right thoracentesis. There is no evidence of pneumothorax. Electronically Signed: Brayan Khan MD at 15:16 EST , Service support , Medical Necessity - Tobacco Use Smoking Status: Never smoker Tobacco Use: Non-smoker Assessment/Plan All Active Problems (Last Updated 09/16/20 @ 10:[address] Nazia Roe MD) Acute kidney injury superimposed on CKD (Acute) Pneumonia (Acute) RECOMMENDATIONS: 1. Await remaining diagnostic studies from thoracentesis 2. Aggressive pulmonary toileting 3. Wean oxygen as tolerated 4. Transfer to tertiary center for CT surgery evaluation 5. Continue empiric antibiotics 6. Hold on anticoagulation for now IMPRESSIONS: 1. Acute hypoxic respiratory insufficiency secondary to right lower lobe staph aureus pneumonia with empyema Patient appears to have a loculated right-sided pleural effusion on chest x-ray. Postprocedure chest x-ray is relatively unchanged despite 450 cc removed indicating loculated effusion. Fluid glucose and LDH are suggestive of an empyema. Lab was called pending Gram stain. Molecular markers are indicating staph aureus endothoracic fluid. Patient would require transfer to a tertiary center for chest tube with possible TPA and fibrinolytic therapy at a minimum, possible decortication. This likely would be a stimulus for the development of A. fib with RVR 2. Acute kidney injury on stage IV CKD Patient's baseline creatinine appears to be between 2 and 3. Patient has slowly improved through the day. Patient has received Kayexalate secondary to hypernatremia. 3. Hyponatremia/hypertension/glomerulonephritis/anxiety/depression/advanced age Complicates care, management, recovery and prognosis. Okay to continue with baseline medications for now. Blood pressure appears to be stable. We will need to watch fluid status closely given problems 1 and 2. 4. A. fib with RVR Patient with new onset A. fib with RVR. Would hold on anticoagulation as patient is likely going to require invasive intervention for empyema. Cautious administration of rate control would likely be indicated as patient does have a high risk for development of septic shock and decompensation with staph aureus empyema. Inpatient E&M: 71839 [facility] L3
[2020-09-18] MEDS: Sertraline 50 MG Tablet 75 MG PO (09:26)
[2020-09-18] MEDS: azaTHIOprine 50 MG Tablet PO (09:26)
[2020-09-18] MEDS: Pantoprazole Sodium 40 MG Tablet PO (09:26)
[2020-09-18] MEDS: Heparin Injection (Vial) 5,000 UNIT/ML VIAL 5000 UNIT SC (09:27)
[2020-09-18] MEDS: Metoprolol Tartrate 25 MG Tablet PO (09:28)
--- NOTE | 2020-09-18 11:38 | PCM.DC.SUM ---
Discharge Date and Diagnosis - Problem List Patient Problems: Active and Suspected Problems (Last Updated 09/16/20 @ 10:[address] Nazia Roe MD) Acute kidney injury superimposed on CKD (Acute) Pneumonia (Acute) Date of Admission: 09/15/20 Date of Discharge: 09/18/20 - Primary Discharge Diagnosis Acute Problems: Active Problems (Last Updated 09/16/20 @ 10:[address] Nazia Roe MD) #1 acute right lower lobe healthcare associated pneumonia. #2 staph aureus right lower lobe lung empyema. #3 acute kidney injury on top of stage IV chronic kidney disease/hyperkalemia. #4 new onset paroxysmal atrial fibrillation. #5 hyponatremia. - Secondary Discharge Diagnosis Chronic Problems: Chronic Problems (Last Updated 09/16/20 @ 10:[address] Nazia Roe MD) Stage 4 chronic kidney disease (Chronic) Left-sided tinnitus (Chronic) Vertigo (Chronic) Anxiety (Chronic) Hypertension (Chronic) Hypertension (Chronic) Glomerulonephritis (Chronic) Hospital Course and Treatment Imaging Results: Clinical Impression(s) from Imaging Studies Abdomen Ultrasound 09/15/20 11:20 IMPRESSION: Small amount of perihepatic fluid. Mild right renal atrophy. Electronically Signed: Brayan Khan MD at 13:54 EST , Service support , Chest X-Ray 09/15/20 11:42 IMPRESSION: Small right pleural effusion with right basilar infiltrate. Electronically Signed: Brayan Khan MD at 12:12 EST , Service support , Abdomen/Pelvis CT 09/15/20 13:50 IMPRESSION: Small right pleural effusion with heterogeneous consolidation in the right lower lobe. This is suggestive of pneumonitis with areas of necrosis. Electronically Signed: Brayan Khan MD at 15:08 EST , Service support , Chest X-Ray 09/17/20 09:20 IMPRESSION: Increasing right pleural effusion with right basilar infiltration and/or atelectasis. Blunting of the left cost phrenic angle. Electronically Signed: Brayan Khan MD at 10:45 EST , Service support , Thoracentesis Ultrasound 09/17/20 10:36 IMPRESSION: Ultrasound-guided right thoracentesis. Electronically Signed: Brayan Khan MD at 15:10 EST , Service support , Chest X-Ray 09/17/20 15:00 IMPRESSION: Status post right thoracentesis. There is no evidence of pneumothorax. Electronically Signed: Brayan Khan MD at 15:16 EST , Service support , Dr. Miller, pulmonology. Operations: None Procedures: 2-D Echocardiogram, EKG, Thoracentesis Summary of Care Provided: The patient is a 84 year old F presented to the emergency room because of shortness of breath and right lateral chest pain and she was found to have right lower lobe consolidation with small pleural effusion consistent with healthcare associated pneumonia. She was started on IV vancomycin and Zosyn. She was found to have acute kidney injury on top of stage IV chronic kidney disease in the setting of history of glomerulonephritis and being on azathioprine for me suppression. With IV antibiotics, WBC has been just trending up for which chest x-ray repeated and revealed worsening right pleural effusion. Pulmonology consulted and patient underwent diagnostic and stable thoracentesis. Pleural fluid analysis revealed exudative fluid and Gram stain of the pleural fluid revealed staph aureus. And this is consistent with right lower lung empyema. Patient received IV fluids for the worsening kidney function and initially, kidney function improved but her creatinine started to go up again. Patient was found to have right lung empyema and evaluation by thoracic surgery indicated. During this hospital stay, patient developed new onset A. fib with RVR and she converted back to sinus rhythm. 2D echocardiogram revealed ejection fraction of 55 to 60%, normal LV size, mild MR, mild TR. After discussion with the patient and her son, patient and the son agreed to go to [facility]. I made a call to the [facility] transfer line and patient was accepted for transfer for further evaluation and treatment by thoracic surgery. Patient transferred to [facility] in a stable condition. Patient Problems: Active and Suspected Problems (Last Updated 09/16/20 @ 10:[address] Nazia Roe MD) Acute kidney injury superimposed on CKD (Acute) Pneumonia (Acute) - Physical Exam Vitals/I&O's: Vital Signs Temp Pulse Resp BP Pulse Ox 98.0 F 103 H 16 124/62 H 96 09/18/20 08:30 09/18/20 11:00 09/18/20 08:30 09/18/20 09:28 09/18/20 08:30 Oxygen Flow Rate (L/min) [3] 2 Oxygen Flow Rate (L/min) [2] 2 Oxygen Flow Rate (L/min) [1 ( 2 Initial Baseline)] Oxygen Flow Rate (L/min) 1 Oxygen Delivery Method [3] Nasal Cannula Oxygen Delivery Method [2] Nasal Cannula Oxygen Delivery Method [1 ( Nasal Cannula Initial Baseline)] Oxygen Delivery Method Nasal Cannula Weight: 141 lb 5.061 oz Body Mass Index (BMI) 24.7 Finger Stick Blood Glucose 130 Orthostatic Vital Signs Start: 09/16/20 13:11 Freq: Status: Active Protocol: Activity Type Activity Date Activity User E-Sign Co-Sign Detail Recorded Client Recorded Date Recorded By Document 09/16/20 13:11 [id number] 09/16/20 13:20 09/16/20 13:11 Orthostatic Vitals Standing -Blood Pressure (90/60-120/80) 119/63 -Extremity Use Left Arm -Pulse Rate (60-100) 102 H Sitting -Blood Pressure (90/60-120/80) 128/70 H -Extremity Use Left Arm -Pulse Rate (60-100) 100 Lying -Blood Pressure (90/60-120/80) 134/65 H -Extremity Use Left Arm -Pulse Rate (60-100) 102 H Intake and Output for Last 24 Hours 01/19/21 01/20/21 01/21/21 23:59 23:59 23:59 Intake Total 6.25 / 2086.25 841.25 / 841.25 1474.38 / 1474.38 Output Total 400 / 400 900 / 900 Balance 1686.25 / 1686.25 -58.75 / -58.75 1474.38 / 1474.38 General: Alert, Oriented x3, Cooperative, - - Minimally short of breath. HEENT: Atraumatic, PERRLA, EOMI, Normocephalic Oral: Moist Mucosa, No Gingival or Mucosal Lesions/ Ulcerations Neck: Supple, No JVD, Negative Carotid Bruits, Trachea Midline, Thyroid Normal Size and Texture Lungs: No wheeze, Diminished, Rales, Short of Breath, - - Decreased breath sounds at the bases, more on the right base with coarse crackles. Cardiovascular: Regular rate, Regular Rhythm, Normal S1, Normal S2, PMI Normal Abdomen: Bowel Sounds Present, Soft, Non Tender, Non-Distended, No Hepato-splenomegaly Extremities: No clubbing, No cyanosis, No edema Skin: No rashes, No breakdown Lymphatic: No Cervical, Supraclavicular, or Inguinal Adenopathy Neurological: Cranial nerves II-XII grossly intact, Neuro grossly intact Psych/Mental Status: Normal Affect, Appropriate Microbiology Past 72 Hours 09/17/20 15:04 Fluid - Thoracentesis Fluid Gram Stain - Final 09/17/20 15:04 Fluid - Thoracentesis Fluid Body Fluid Culture - Preliminary Staphylococcus aureus 09/15/20 20:23 Urine, Clean Catch Legionella Antigen - Final 09/15/20 20:26 Urine, Clean Catch Streptococcus pneumoniae Antigen (M - Final 09/15/20 12:27 Mucosa - Nose SARS-CoV-2 Antigen (Rapid) - Final Laboratory Results 09/17/20 06:15: Lactate Dehydrogenase 234 09/17/20 10:36: Fluid Glucose 13 L*, Fluid Total Protein 4.6, Fluid LDH > 4000 09/17/20 10:36: Fluid pH Pending 09/17/20 15:04: Miscellaneous Cytology Pending 09/17/20 15:05: Fluid Source Cancelled, Fluid Color Cancelled, Fluid Appearance Cancelled, Fluid WBC Cancelled, Fluid RBC Cancelled, Fluid Tot Cell Count Cancelled, Fld Polynuclear WBCs # Cancelled, Fld Polynuclear WBCs % Cancelled, Fluid Mononuclear WBCs Cancelled, Fld Mononuclear WBCs % Cancelled, Fluid Neutrophils Cancelled, Fluid Lymphocytes Cancelled, Fluid Monocytes Cancelled, Fluid Plasma Cells Cancelled, Fluid Macrophages Cancelled, Fld Mesothelial Cells Cancelled, Fluid Other Cells Cancelled, Fl Pathologist Comment Cancelled, Fluid Comment 2 Cancelled 09/17/20 18:23: Potassium 4.2 09/17/20 18:23: TSH 0.44 09/17/20 18:23: Magnesium 2.6 09/18/20 05:30: Random Vancomycin 13.8 09/18/20 05:30: WBC 22.3 H, RBC 2.76 L, Hgb 9.3 L, Hct 26.7 L, MCV 96.7, MCH 33.7 H, MCHC 34.8, RDW Std Deviation 54.9 H, RDW Coeff of Obey 15.6 H, Plt Count 195, MPV 10.4, Immature Gran % (Auto) 3.100 H, Neut % (Auto) 87.2 H, Lymph % (Auto) 2.7 L, [place] % (Auto) 6.2, Eos % (Auto) 0.4, Baso % (Auto) 0.4, Absolute Neuts (auto) 19.4 H, Absolute Lymphs (auto) 0.60 L, Nucleated RBC % 0.1, Differential Comment SCANNED, Hypochromasia RARE, Ovalocytes RARE, [place] Cells RARE 09/18/20 05:30: Sodium 131 L, Potassium 4.6, Chloride 102, Carbon Dioxide 20.0 L, Anion Gap 9, BUN 70 H, Creatinine 3.29 H, Estim Creat Clear Calc 10.25, Est GFR (MDRD) Af Amer 17 L, Est GFR (MDRD) Non-Af 14 L, BUN/Creatinine Ratio 21.3 H, Glucose 72 L, Calcium 8.4 L Current Medications Acetaminophen (Acetaminophen 325 Mg Tablet) 650 mg PO Q6H PRN PRN PRN Reason: Pain Score 1-10/Temp > 100.7 F Last Admin: 09/16/20 21:12 Dose: 650 mg Documented by: Al Hydroxide/Mg Hydroxide (Mag Hydrox/Al Hydrox/Simeth 30 Ml Udc) 30 ml PO Q6H PRN PRN PRN Reason: Gastric Burning Albuterol Sulfate (Albuterol 2.5 Mg/3 Ml Vial.Neb.) 2.5 mg INHALATION Q4H PRN PRN PRN Reason: Shortness of breath, wheezing Azathioprine (Azathioprine 50 Mg Tablet) 50 mg PO DAILY@0800 [facility] Last Admin: 09/18/20 09:26 Dose: 50 mg Documented by: Heparin Sodium (Porcine) (Heparin Injection (Vial) 5,000 Unit/Ml Vial) 5,000 unit SC Q12 [facility] Last Admin: 09/18/20 09:27 Dose: 5,000 unit Documented by: Piperacillin Sod/Tazobactam (Sod 3.375 gm/ Sodium Chloride) 50 mls @ 12.5 mls/hr IV Q12 [facility] Last Admin: 09/18/20 09:33 Dose: 12.5 mls/hr Documented by: Vancomycin IV Pharmacy to Dose (1 ea/ Sodium Chloride) 500 mls @ 250 mls/hr IV PRN PRN; Protocol PRN Reason: Rx to Dose Sodium Chloride () 1,000 mls @ 60 mls/hr IV .[id number] [facility] Last Infusion: 09/18/20 09:55 Dose: 60 mls/hr Documented by: Magnesium Hydroxide (Magnesium Hydroxide 30 Ml Udc) 30 ml PO DAILY PRN PRN PRN Reason: Constipation Last Admin: 09/17/20 17:59 Dose: 30 ml Documented by: Melatonin (Melatonin 10 Mg Tablet) 10 mg PO QHS PRN PRN Reason: SLEEP Last Admin: 09/17/20 21:13 Dose: 10 mg Documented by: Metoprolol Tartrate (Metoprolol Tartrate 5 Mg/5 Ml Vial) 5 mg IV Q1H PRN PRN PRN Reason: HR > 110 Last Admin: 09/17/20 20:58 Dose: 5 mg Documented by: Metoprolol Tartrate (Metoprolol Tartrate 25 Mg Tablet) 25 mg PO BID [facility] Last Admin: 09/18/20 09:28 Dose: 25 mg Documented by: Oxycodone HCl (Oxycodone 5 Mg Tablet) 5 mg PO Q4H PRN PRN PRN Reason: Pain Score 4-5 Last Admin: 09/15/20 18:14 Dose: 5 mg Documented by: Pantoprazole Sodium (Pantoprazole Sodium 40 Mg Tablet) 40 mg PO DAILY [facility] Last Admin: 09/18/20 09:26 Dose: 40 mg Documented by: Senna/Docusate Sodium (Senna/Docusate Sodium 1 Tablet) 2 tablet PO BID PRN PRN PRN Reason: Constipation Sertraline HCl (Sertraline 50 Mg Tablet) 75 mg PO DAILY LO Last Admin: 09/18/20 09:26 Dose: 75 mg Documented by: Sodium Chloride (0.9% Saline Lock 10 Ml Syringe) 10 - 40 ml IV UD PRN PRN Reason: SALINE FLUSH Last Admin: 09/17/20 21:01 Dose: 10 ml Documented by: Throat Lozenges (Benzocaine/Menthol 1 Lozenge) 1 lozenge MUCOUS MEM Q2H PRN PRN PRN Reason: sore throat Last Admin: 09/16/20 13:39 Dose: 1 lozenge Documented by: Home Medications: Medications to take at Discharge Metoprolol Tartrate [Lopressor (beta po)] 25 mg PO DAILY 04/02/19 azathioprine 50 mg tablet 50 mg PO DAILY@0800 #90 tab 06/05/19 pantoprazole 40 mg tablet,delayed release 40 mg PO DAILY #90 tab 06/30/20 Sertraline HCl [Zoloft] 75 mg PO DAILY 09/15/20 Primary Care Physician: Mike Pat DO [Primary Care Provider] - Disposition: Acute care Hospital Minutes spent on discharge:: 33 Patient Condition:: Guarded Medical Necessity - Tobacco Use Smoking Status: Never smoker Tobacco Use: Non-smoker Meaningful Use Info Meaningful Use Diagnoses (Choose all that apply): None applicable Inpatient E&M: 22863 Disch Hosp
[2020-09-18] MEDS: BENZOCAINE/MENTHOL 1 LOZENGE MUCOUS MEM (13:00)
--- NOTE | 2020-09-18 17:53 | NURSING ---
Report called to nurse Palmer for pt transfer to [facility].
[2020-09-24 15:52] LABS: pH, Body Fluid 11254 7.2 (Not Estab.)
== END 2020-09-18 18:50 | disposition short-term general hospital (02) | DRG 177 ==
LOC: ED 11:35 → MS3 14:13 → PCU 09-17 20:39
PROVIDERS: Family Medicine; Hospitalist; Internal Medicine Critical Care Medicine; Admitting Provider Internal Medicine; Emergency Provider Emergency Medicine; PCP Family Medicine; Visit Provider Hospitalist
DX: J15.212 Pneumonia due to Methicillin resistant Staphylococcus aureus (principal); J86.9 Pyothorax without fistula; J90 Pleural effusion, not elsewhere classified; E87.1 Hypo-osmolality and hyponatremia; N17.9 Acute kidney failure, unspecified; N18.4 Chronic kidney disease, stage 4 (severe); E87.0 Hyperosmolality and hypernatremia; I48.0 Paroxysmal atrial fibrillation; E03.9 Hypothyroidism, unspecified; I12.9 Hypertensive chronic kidney disease with stage 1 through stage 4 chronic kidney disease, or unspecified chronic kidney disease; F32.9 Major depressive disorder, single episode, unspecified; F41.9 Anxiety disorder, unspecified; E11.22 Type 2 diabetes mellitus with diabetic chronic kidney disease; E87.5 Hyperkalemia; Z66 Do not resuscitate; Z87.448 Personal history of other diseases of urinary system; Y95 Nosocomial condition; Z79.899 Other long term (current) drug therapy; Z90.710 Acquired absence of both cervix and uterus
CPT/HCPCS: 32555; 36415; 71045; 71046; 74176; 76705; 80048; 80053; 80202; 81001; 82945; 83605; 83615; 83690; 83735; 83986; 84132; 84157; 84443; 84484; 85025; 85610; 85730; 87070; 87075; 87077; 87186; 87205; 87426; 87449; 87635; 88108; 88305; 88313; 89050; 93005; 93306; 97110; 97116; 97162; 97166; 97530; 97535; 97802; 99251; 99285; J7030; J7040; J7050; A4216; G0463; U0002

== ENCOUNTER 2020-10-08 18:19 | Inpatient (IN) | payer MEDICARE, SELFPAY ==
[2020-09-15 15:07] VITALS: BMI 24.7
[2020-10-08 18:20] VITALS: BP 133/69; PULSE 72; RESP 16; TEMP 35.8; O2SAT 99; BMI 22.1
--- NOTE | 2020-10-08 18:46 | EKG12_ITS ---
Test Reason : DYSRHYTHMIA Blood Pressure : / mmHG Vent. Rate : 071 BPM Atrial Rate : 071 BPM P-R Int : 170 ms QRS Dur : 084 ms QT Int : 402 ms P-R-T Axes : 039 -02 040 degrees QTc Int : 436 ms Normal sinus rhythm Possible Inferior infarct , age undetermined Abnormal ECG Confirmed by GLENYS OVIEDO, QUIANA ([id number]), editor at large JUDITH TAYLOR ([id number]) on 10/10/2020 8:39:08 AM Referred By: CHRIS Confirmed By:ANDREINA VERONICA MD
--- NOTE | 2020-10-08 19:13 | RAD_ITS ---
STUDY: X-RAY CHEST REASON FOR EXAM: Female, 84 years old. SOB, high creatnine, recently admitted for fluid in lungs TECHNIQUE: Single AP portable view of the chest. COMPARISON: 09/17/2020 FINDINGS: Right PICC line terminates in the right atrium. Markedly improved aeration of the right lung base with only a small amount of infiltrate or atelectasis remains. Only a small right pleural effusion remains. Significant increase in left lung base density consistent with atelectasis or infiltrate with pleural effusion. Mild cardiomegaly. Bones and soft tissues show no abnormalities. RAD/Chest 1 View (Portable) IMPRESSION: Significantly improved aeration of the right lung improved right pleural effusion. Significantly increased atelectasis or infiltrate in the left lower hemithorax. Electronically Signed: Tobin Benson MD at 19:39 EST , Service support ,
[2020-10-08 19:22] LABS: Absolute Lymphocyte Count 0.74 X10^3/uL (0.83-4.51); Absolute Neutrophil Count 5.2 X10^3/uL (2.0-7.7); Basophil# 0.05 X10^3/uL; Basophil% 0.7 % (0-1); Eosinophil# 0.26 X10^3/uL; Eosinophils% 3.5 % (0-5); Hematocrit 21.5 % (37-47); Hemoglobin 6.9 g/dL (12.0-15.0); Lymphocyte # 0.74 X10^3/ul (4.0); Lymphocyte % 10.1 % (19-41); Mean Corp Hgb Conc 32.1 g/dL (32-36); Mean Corpuscular Hgb 32.1 pg (27.0-32.0); Mean Platelet Vol. 9.3 fl (6.2-12.0); Monocyte# 0.85 X10^3/uL; Monocyte% 11.6 % (0-10); NRBC Flagged by Analyzer 0 % (0-5); Neutrophil # 5.16 X10^3/uL (2.7-7.7); Neutrophil % 70.2 % (47-70); Platelet Count 270 K/mm3 (150-450); RBC Distribution Width CV 15.2 % (11.6-14.6); RBC Distribution Width SD 54.6 fl (35.1-43.9); Red Blood Count 2.15 M/mm3 (4.2-5.4); White Blood Count 7.4 K/mm3 (4.4-11.0)
[2020-10-08 19:37] LABS: ALB/GLOB Ratio 0.4 RATIO (0.9-2.4); AST(SGOT) 34 U/L (15-37); Alanine Aminotransfer ALT/SGPT 36 U/L (13-56); Albumin, Serum 1.9 g/dL (3.2-5.0); Alkaline Phosphatase 65 U/L (45-117); Anion Gap 6 (5-15); BUN 78 mg/dL (7-18); BUN/Creat Ratio 15.6 RATIO (10-20); Calcium,Total 7.6 mg/dL (8.5-10.1); Chloride 101 mmol/L (98-107); Creatinine, Serum 4.99 mg/dL (0.55-1.02); EST Glomerular Filtration Rate 9 mL/min (>60); Est Glom Filt Rate - Afr Amer 11 mL/min (>60); Globulin 4.4 g/dL (2.2-4.2); Glucose 102 mg/dL (74-106); Potassium 5.3 mmol/L (3.5-5.1); Protein, Total 6.3 g/dL (6.4-8.2); Sodium Level 132 mmol/L (136-145)
[2020-10-08 19:46] LABS: BNP,B-Type NATRIURETIC PEPTIDE 375.4 pg/mL (0-100)
--- NOTE | 2020-10-08 19:55 | ED.VIS.GEN ---
History of Present Illness Chief Complaint: Abn Labs Narrative: Patient presents to the emergency department sent in by Dr. Rebollar, she has a complicated history, she recently had a pneumonia, had complications including a chest tube and was transferred to a tertiary care center. She has chronic underlying CKD although at the time she had AIDEN also. As far as breathing concern she is significantly improving but her creatinine is increasing and was sent to the emergency department by Dr. Rebollar her underwriting clerks supervisor. She has no other symptoms. Past medical history: As above, otherwise reviewed and prior documentations and at bedside with family Medications: Reviewed Social history: Noncontributory Review of systems: All systems negative except as indicated General: Denies: Fever Eyes: Denies: Visual changes - bilaterally ENT: Denies: Rhinorrhea, Sore throat Cardiovascular: Denies: Chest pain Respiratory: Dyspnea is significantly improving. Gastrointestinal: Denies: Abdominal pain, Nausea, Vomiting Genitourinary: Denies: Dysuria Musculoskeletal: Denies: Myalgias Skin: Denies: Rash Neurological: Denies: Headache, no focal weakness Psych: Reports: negative Hematologic: Denies: Easy bruising, Easy bleeding Physical exam General: Patient appears chronically ill but does not appear in significant distress Head: Normocephalic, Atraumatic Eyes: Conjunctiva slightly pale ENT: Moist mucous membranes Neck: Supple, Nontender, No lymphadenopathy Cardiovascular: Regular rate, Regular rhythm Respiratory: No distress, CTA bilaterally Abdomen: Soft, Nontender, Nondistended Back: Nontender, Normal Inspection. Negative for: CVA tenderness Extremities: Nontender, No edema Skin: No rash, some pallor is present Neurological: Alert, Normal Strength, Normal Sensation Psychological: Normal affect Past Medical History - Allergies and Home Meds Allergies/Adverse Reactions: Allergies Tetanus Vaccines and Toxoid [Tetanus Vaccines & Toxoid] Allergy (Verified 09/15/20 11:10) Unknown HORSE SERUM TETANUS Primary Care Physician: Mike Pat DO [Primary Care Provider] - Surgical History: appendectomy, cholecystectomy, herniorrhaphy - right heniorrhaphy, hysterectomy, - - renal bx 02/2014 Smoking Status: Never smoker - Family History Paternal Family History: Reports: Heart Disease Maternal Family History: Reports: Heart Disease - at age 54 years Physical Exam Vital Signs/Narrative: Vital Signs Temp Pulse Resp BP Pulse Ox 10/08/20 18:20 96.5 F L 72 16 133/69 H 99 Diagnostic/Tx/Re-eval Chest X-Ray - ED: 1 View, Read by ED Physician, Read by Radiologist, - - Chronic changes are present, the chest x-ray is significantly improved from prior x-ray. - Rhythm Strip Rhythm Strip: Sinus Rhythm Rate: 71 Ectopy: None - EKG Initial EKG Interpretation: - - Sinus rhythm with a rate of 71. Normal DE and QTc intervals. No ischemic changes. Normal T waves. No signs of hyperkalemia Interpreted by emergency doctor - Medical Decision Making Patient's creatinine is 4.99, she is also uremic. This is significantly increased since last time, she will be admitted for dialysis assessment. Otherwise she appears well. Her hemoglobin is 6.9, she is not significantly symptomatic therefore I will not transfuse emergently. ED Disposition - Plan for ED Patient: Disposition: Home or Assisted Living Diagnosis: Acute kidney injury, Anemia Referrals: Mike Pat DO [Primary Care Provider] -
[2020-10-08 20:04] VITALS: BP 120/81; PULSE 68; RESP 16; TEMP 36.2; O2SAT 100
--- NOTE | 2020-10-08 20:28 | PCM.HP.STD ---
History of Present Illness Date of Admission: 10/08/20 Chief Complaint: worsening kidney function The patient is a 84 year old F with a past medical history of anxiety and hypertension who was admitted through the ED on 10/08/2020 for worsening kidney function. She was sent in by her credit collection associate as her creatinine was trending upwards. She was recently discharged from the hospital on 09/18/2020 after she was admitted on account of shortness of breath and right lateral chest pain. She was found to have right-sided health associated pneumonia was treated with IV vancomycin and Zosyn. He subsequently developed a parapneumonic effusion on the right which required thoracentesis and analysis of the pleural fluid revealed staph aureus. She was also noted to have AIDEN on CKD stage IV during that admission in the setting of a history of glomerulonephritis and being on azathioprine. She was hydrated with fluids for the AIDEN on CKD. She also developed A. fib with RVR during that admission though subsequently converted back to normal sinus rhythm. She was transferred to [facility] on account of the right lower lung empyema requiring thoracic surgery evaluation. She was subsequently discharged home but presents today after she went see her credit collection associate and she was found to have worsening kidney function. Patient has no other complaints she denies fever, chills, nausea vomiting, diarrhea, any abdominal pain and has not noticed any change in her urine quantity or color. Review systems otherwise negative. Vitals show temperature of 91.1 Fahrenheit with blood pressure 120/81, pulse rate of 68 and respiratory rate of 16. Chemistry showed sodium of 132 and potassium of 5.3 with creatinine of 4.99 and BUN of 78. Last creatinine per record on 09/18/2020 was 3.29. BNP was 375.4 initial troponin was negative. CBC showed hemoglobin of 6.9 and was a microcytic normochromic anemia. This x-ray showed significantly improved aeration of the right lung and improved right pleural effusion with significantly increased atelectasis or infiltrate in the left lower hemithorax. She has been admitted to be managed for AIDEN on CKD versus worsening CKD. [] Past Medical History Past Medical History (Chronic Problems): Chronic Problems (Last Updated 09/16/20 @ 10:[address] Nazia Roe MD) Stage 4 chronic kidney disease (Chronic) Left-sided tinnitus (Chronic) Vertigo (Chronic) Anxiety (Chronic) Hypertension (Chronic) Hypertension (Chronic) Glomerulonephritis (Chronic) Medical History: Medical History (Last Updated 09/16/20 @ 10:[address] Nazia Roe MD) Anxiety (Chronic) F41.9 Hypertension (Chronic) I10 Allergies Tetanus Vaccines and Toxoid [Tetanus Vaccines & Toxoid] Allergy (Verified 09/15/20 11:10) Unknown HORSE SERUM TETANUS Home Medications: Ambulatory Orders Medication Instructions Recorded azathioprine 50 mg tablet 50 mg PO DAILY@0800 #90 tab 06/05/19 pantoprazole 40 mg tablet,delayed 40 mg PO DAILY #90 tab 06/30/20 release Sertraline HCl [Zoloft] 75 mg PO DAILY 09/15/20 Apixaban [Eliquis] 2.5 mg PO BID 10/08/20 Metoprolol Tartrate 50 mg PO Q8H 10/08/20 Surgical History: Surgical History (Last Reviewed 06/05/19 @ 09:[address] Mike Pat, DO) History of hysterectomy Z90.710 2014 Surgical History: appendectomy, cholecystectomy, herniorrhaphy - right heniorrhaphy, hysterectomy, - - renal bx 02/2014 Psychiatric History: No pertinent psych hx CAPSULE MAKER History: No pertinent CAPSULE MAKER history Smoking Status: Never smoker - *Family History Paternal History Items: Heart Disease Maternal History Items: Heart Disease - at age 54 years Review of Systems Constitutional: Reports: Malaise, Weakness. Denies: Chills, Fever, Weight Change Eyes: Denies: Blurred vision HEENT: Denies: Head Aches, Sinus Congestion, Sinus Drainage Cardiovascular: Denies: Chest Pain, Palpitations Respiratory: Denies: Cough, Shortness of Breath, Shortness of breath at rest, Shortness of breath upon exertion, Sputum production Gastrointestinal: Denies: Abdominal Pain, Nausea, Vomiting Genitourinary: Denies: Dysuria Musculoskeletal: Denies: Joint Pain, Joint Tenderness Skin: Denies: Rash, Wounds Neurological: Denies: Numbness, Tingling, Focal weakness Psychiatric: Denies: Anxiety, Depression, Homicidal Ideations, Suicidal Ideations Hematologic/ Lymphatic: Denies: Easy Bruising, Easy Bleeding VTE Information - Inpt Only VTE Present on Admission: No VTE Mechan Device Prophylaxis: SCD's VTE Pharm Prophylaxis ordered?: No Reason prophylaxis not ordered:: Medical Contraindication - anemia Patient Problems: Active and Suspected Problems (Last Updated 09/16/20 @ 10:[address] Nazia Roe MD) Acute kidney injury (Acute) Anemia (Acute) - Physical Exam Vitals/I&O's: Vital Signs Temp Pulse Resp BP Pulse Ox 97.1 F L 68 16 120/81 H 100 10/08/20 20:04 10/08/20 20:04 10/08/20 20:04 10/08/20 20:04 10/08/20 20:04 Oxygen Delivery Method Room Air Weight: 136 lb 14.513 oz Body Mass Index (BMI) 22.1 Finger Stick Blood Glucose 130 General: Alert, Oriented x3, Cooperative, No apparent distress, Lethargic, - - pale HEENT: Atraumatic, PERRLA, EOMI, Normocephalic Oral: Dry Mucosa Neck: Supple, No JVD, Negative Carotid Bruits Lungs: Clear to auscultation, Normal air movement, No rhonchi, No wheeze, No rales Cardiovascular: Regular rate, Regular Rhythm, Normal S1, Normal S2, No murmurs Abdomen: Bowel Sounds Present, Soft, Non Tender Extremities: No clubbing, No cyanosis, Capillary Refill Less than 3 Seconds, Edema - bilateral 2+ lower extremity pitting edema Skin: No rashes, No breakdown Musculoskeletal: No Tenderness to Palpation of Joints or Extremities Lymphatic: No Cervical, Supraclavicular, or Inguinal Adenopathy Neurological: Cranial nerves II-XII grossly intact, Neuro grossly intact, Motor Exam 5/5 strength throughout Psych/Mental Status: Flat Affect, Alert and oriented to time, place, person, mood and affect Laboratory Results 10/08/20 18:45: WBC 7.4, RBC 2.15 L, Hgb 6.9 L, Hct 21.5 L, MCV 100.0 H, MCH 32.1 H, MCHC 32.1, RDW Std Deviation 54.6 H, RDW Coeff of Obey 15.2 H, Plt Count 270, MPV 9.3, Immature Gran % (Auto) 3.900 H, Neut % (Auto) 70.2 H, Lymph % (Auto) 10.1 L, [place] % (Auto) 11.6 H, Eos % (Auto) 3.5, Baso % (Auto) 0.7, Absolute Neuts (auto) 5.2, Absolute Lymphs (auto) 0.74 L, Nucleated RBC % 0 10/08/20 18:45: Sodium 132 L, Potassium 5.3 H, Chloride 101, Carbon Dioxide 25.0, Anion Gap 6, BUN 78 H, Creatinine 4.99 H, Estim Creat Clear Calc 8.00, Est GFR (MDRD) Af Amer 11 L, Est GFR (MDRD) Non-Af 9 L, BUN/Creatinine Ratio 15.6, Glucose 102, Calcium 7.6 L, Total Bilirubin 0.30, AST 34, ALT 36, Alkaline Phosphatase 65, Troponin I < 0.015, Total Protein 6.3 L, Albumin 1.9 L, Globulin 4.4 H, Albumin/Globulin Ratio 0.4 L 10/08/20 18:45: B-Natriuretic Peptide 375.4 H Diagnostic Data Chest X-Ray 10/08/20 19:13 IMPRESSION: Significantly improved aeration of the right lung improved right pleural effusion. Significantly increased atelectasis or infiltrate in the left lower hemithorax. Electronically Signed: Tobin Benson MD at 19:39 EST , Service support , Assessment/Plan All Active Problems (Last Updated 09/16/20 @ 10:[address] Nazia Roe MD) Acute kidney injury (Acute) Anemia (Acute) Acute kidney injury superimposed on CKD (Acute) Pneumonia (Acute) 84 y/o admitted o/a of worsening kidney function #AIDEN on CKD vs worsening CKD 5 CR is up to 4.99; was 3.29 as at 09/18/2020. admit to PCU with telemetry consult nephrology patient counseled she may end up going on dialysis due to worsneing kidney function; she doesnt think she wants dialysis someone wants to talk to the credit collection associate tomorrow about that. #History of A. fib: Currently rate controlled. EKG showed no acute ST changes. On Eliquis. Hemoglobin is also 6.9. Will check stool for occult blood. Continue metoprolol. #Hyperkalemia: Potassium is 5.3. Will give sodium Kayexalate. #Depression: on zoloft #History of glomerulonephritis: on azathioprine. DVT prophylaxis: on eliquis. Code status: DNRCCA- no intubation Patient and her son counseled extensively about different types of CODE STATUS including full code, DNR CCA and DNR CCA. Patient elects to be DNRCCA no intubation. Total [id number] time 18 minutes. Inpatient E&M: 05519 Init Hosp L3 Procedures: 70693 Advncd Care Plan 30 Min
[2020-10-08 20:53] VITALS: BMI 22.8
[2020-10-08 20:59] VITALS: BMI 22.8
[2020-10-08 21:00] VITALS: BP 100/78; PULSE 68; RESP 18; TEMP 36.6; O2SAT 97
[2020-10-08 22:01] VITALS: PULSE 68
[2020-10-08] MEDS: Sodium Polystyrene Sulfonate 15 GM/60 ML UDC 30 GM PO (22:30)
[2020-10-08] MEDS: 0.9% Saline Lock 10 ML Syringe IV (23:18)
[2020-10-08] MEDS: 0.9% Normal Saline 1,000 ML 75 ML IV (23:18)
[2020-10-08 23:55] VITALS: BP 132/61; PULSE 74; RESP 18; TEMP 36.6; O2SAT 99
[2020-10-09] VITALS (14 sets, daily range): BP systolic 113–159; BP diastolic 54–70; PULSE 74–84; RESP 16–24; TEMP 36.1–37.2; O2SAT 95–98
[2020-10-09 07:52] LABS: Absolute Lymphocyte Count 0.75 X10^3/uL (0.83-4.51); Absolute Neutrophil Count 4.1 X10^3/uL (2.0-7.7); Basophil# 0.06 X10^3/uL; Eosinophil# 0.17 X10^3/uL; Eosinophils% 2.9 % (0-5); Hemoglobin 7.4 g/dL (12.0-15.0); Lymphocyte # 0.75 X10^3/ul (4.0); Lymphocyte % 12.8 % (19-41); Mean Corp Hgb Conc 32.2 g/dL (32-36); Mean Corpuscular Volume 99.6 fL (81-99); Mean Platelet Vol. 8.8 fl (6.2-12.0); Monocyte# 0.59 X10^3/uL; Monocyte% 10.1 % (0-10); NRBC Flagged by Analyzer 0 % (0-5); Neutrophil # 4.07 X10^3/uL (2.7-7.7); Neutrophil % 69.4 % (47-70); Platelet Count 224 K/mm3 (150-450); RBC Distribution Width SD 54.5 fl (35.1-43.9); Red Blood Count 2.31 M/mm3 (4.2-5.4); White Blood Count 5.9 K/mm3 (4.4-11.0)
[2020-10-09 08:20] LABS: Anion Gap 9 (5-15); BUN 76 mg/dL (7-18); BUN/Creat Ratio 16.2 RATIO (10-20); Calcium,Total 7.6 mg/dL (8.5-10.1); Chloride 104 mmol/L (98-107); Creatinine, Serum 4.69 mg/dL (0.55-1.02); EST Glomerular Filtration Rate 9 mL/min (>60); Est Glom Filt Rate - Afr Amer 11 mL/min (>60); Estimated Creatinine Clearance 8.18 ml/min; Glucose 94 mg/dL (74-106); Potassium 4.6 mmol/L (3.5-5.1); Sodium Level 136 mmol/L (136-145)
[2020-10-09] MEDS: Pantoprazole Sodium 40 MG Tablet PO (09:23)
[2020-10-09] MEDS: Sertraline 50 MG Tablet 75 MG PO (09:23)
--- NOTE | 2020-10-09 09:33 | PCS.PANDOC ---
PANDEMIC DOCUMENTATION INITIATED: Date: 10/08/20 Time: 2049
[2020-10-09 11:25] LABS: Bacteria 0 SEEN /hpf (None Seen); Mucous, Urine 0 SEEN /hpf (<or=2+)
[2020-10-09 11:34] LABS: Color, Urine Yellow (Yellow); Glucose, Dipstick Normal (Normal); Ketone-Dipstick Negative (Negative); Leukocyte Esterase-Dipstick 100 /ul (Negative); Nitrite-Dipstick Negative (Negative); Occult Blood-Urine 250 /ul (Negative); Protein-Dipstick 100 mg/dl (Negative); Urine Bilirubin Dipstick Negative (Negative); Urine Clarity Sl. Cloudy (Clear); Urine Urobilinogen Normal (Normal)
[2020-10-09 11:56] LABS: Red Blood Cells-Urine > 100 SEEN /hpf (0-5); Squamous Epithelial Cells - UA 0-5 SEEN /hpf (5-10); White Blood Cells 5-10 SEEN /hpf (0-5)
--- NOTE | 2020-10-09 11:59 | PN_ITS ---
Patient Problems: Active and Suspected Problems (Last Updated 09/16/20 @ 10:[address] Nazia Roe MD) Acute kidney injury (Acute) Anemia (Acute) Subjective: Patient seen and examined. Complains of generalized fatigue, feeling tired. Reports she does not want to undergo dialysis. Discussed palliative/hospice and patient would like to further discuss with her family. - Physical Exam Vitals/I&O's: Vital Signs Temp Pulse Resp BP Pulse Ox 98.0 F 83 24 H 159/66 H 97 10/09/20 09:10 10/09/20 09:10 10/09/20 09:10 10/09/20 09:10 10/09/20 09:10 Oxygen Delivery Method Room Air Weight: 137 lb 2.04 oz Body Mass Index (BMI) 22.8 Finger Stick Blood Glucose 130 Intake and Output for Last 24 Hours 10/07/20 10/08/20 10/09/20 23:59 23:59 23:59 Intake Total 360 / 360 600 / 600 Output Total 0 / 0 Balance 360 / 360 600 / 600 General: Alert, Oriented x3, Cooperative HEENT: Atraumatic, PERRLA, EOMI, Normocephalic Neck: Supple, No JVD, Negative Carotid Bruits Lungs: Clear to auscultation, Normal air movement Cardiovascular: Regular rate, No murmurs Abdomen: Bowel Sounds Present, Soft, Non Tender, Non-Distended Extremities: No clubbing, No cyanosis, No edema, Capillary Refill Less than 3 Seconds Skin: No rashes, No breakdown Musculoskeletal: No Tenderness to Palpation of Joints or Extremities Neurological: Cranial nerves II-XII grossly intact, Neuro grossly intact Psych/Mental Status: Flat Affect Microbiology Past 72 Hours 10/08/20 20:05 Mucosa - Nose SARS-CoV-2 Antigen (Rapid) - Final Laboratory Results 10/08/20 18:45: WBC 7.4, RBC 2.15 L, Hgb 6.9 L, Hct 21.5 L, MCV 100.0 H, MCH 32.1 H, MCHC 32.1, RDW Std Deviation 54.6 H, RDW Coeff of Obey 15.2 H, Plt Count 270, MPV 9.3, Immature Gran % (Auto) 3.900 H, Neut % (Auto) 70.2 H, Lymph % (Auto) 10.1 L, [place] % (Auto) 11.6 H, Eos % (Auto) 3.5, Baso % (Auto) 0.7, Abs olute Neuts (auto) 5.2, Absolute Lymphs (auto) 0.74 L, Nucleated RBC % 0 10/08/20 18:45: Sodium 132 L, Potassium 5.3 H, Chloride 101, Carbon Dioxide 25.0, Anion Gap 6, BUN 78 H, Creatinine 4.99 H, Estim Creat Clear Calc 8.00, Est GFR (MDRD) Af Amer 11 L, Est GFR (MDRD) Non-Af 9 L, BUN/Creatinine Ratio 15.6, Glucose 102, Calcium 7.6 L, Total Bilirubin 0.30, AST 34, ALT 36, Alkaline Phosphatase 65, Troponin I < 0.015, Total Protein 6.3 L, Albumin 1.9 L, Globulin 4.4 H, Albumin/Globulin Ratio 0.4 L 10/08/20 18:45: B-Natriuretic Peptide 375.4 H 10/08/20 22:04: Blood Type A POSITIVE, Antibody Screen NEGATIVE, Crossmatch See Detail 10/08/20 22:04: Troponin I < 0.015 10/09/20 01:14: Troponin I < 0.015 10/09/20 07:40: WBC 5.9, RBC 2.31 L, Hgb 7.4 L, Hct 23.0 L, MCV 99.6 H, MCH 32.0, MCHC 32.2, RDW Std Deviation 54.5 H, RDW Coeff of Obey 15.0 H, Plt Count 224, MPV 8.8, Immature Gran % (Auto) 3.800 H, Neut % (Auto) 69.4, Lymph % (Auto) 12.8 L, [place] % (Auto) 10.1 H, Eos % (Auto) 2.9, Baso % (Auto) 1.0, Absolute Neuts (auto) 4.1, Absolute Lymphs (auto) 0.75 L, Nucleated RBC % 0 10/09/20 07:40: Sodium 136, Potassium 4.6, Chloride 104, Carbon Dioxide 23.0, Anion Gap 9, BUN 76 H, Creatinine 4.69 H, Estim Creat Clear Calc 8.18, Est GFR (MDRD) Af Amer 11 L, Est GFR (MDRD) Non-Af 9 L, BUN/Creatinine Ratio 16.2, Glucose 94, Calcium 7.6 L 10/09/20 11:10: Urine Color Yellow, Urine Clarity Sl. Cloudy, Urine pH 7.0, Ur Specific [place] 1.010, Urine Protein 100 H, Urine Glucose (UA) Normal, Urine Ketones Negative, Urine Occult Blood 250 H, Urine Nitrite Negative, Urine Bili hay Negative, Urine Urobilinogen Normal, Ur Leukocyte Esterase 100 H, Urine RBC > 100 SEEN, Urine WBC 5-10 SEEN, Ur Squamous Epith Cells 0-5 SEEN, Urine Bacteria 0 SEEN, Urine Mucus 0 SEEN Current Medications Sodium Chloride () 1,000 mls @ 75 mls/hr IV .[id number] [facility] Last Admin: 10/08/20 23:18 Dose: 75 mls/hr Documented by: Nutritional Formula (Lactose Free) (Ensure Enlive 120 Ml Liquid) 120 ml PO 4X/DAY [facility] Last Admin: 10/09/20 09:22 Dose: Not Given Documented by: Ondansetron HCl (Ondansetron 4 Mg/2 Ml Vial) 4 mg IV Q8H PRN PRN PRN Reason: NAUSEA/VOMITING Pantoprazole Sodium (Pantoprazole Sodium 40 Mg Tablet) 40 mg PO DAILY [facility] Last Admin: 10/09/20 09:23 Dose: 40 mg Documented by: Sertraline HCl (Sertraline 50 Mg Tablet) 75 mg PO DAILY [facility] Last Admin: 10/09/20 09:23 Dose: 75 mg Documented by: Sodium Chloride (0.9% Saline Lock 10 Ml Syringe) 10 - 40 ml IV UD PRN PRN Reason: Closed End PICC Flush Last Admin: 10/08/20 23:18 Dose: 10 ml Documented by: Sodium Chloride (0.9 % Nacl (Sterile) Posiflush 10 Ml) 10 - 40 ml IV UD PRN PRN Reason: Port access or dressing change Sodium Chloride (0.9% Saline Lock 10 Ml Syringe) 10 - 40 ml IV UD PRN PRN Reason: SALINE FLUSH Medical Necessity - Tobacco Use Smoking Status: Never smoker Assessment/Plan All Active Problems (Last Updated 09/16/20 @ 10:[address] Nazia Roe MD) Acute kidney injury (Acute) Anemia (Acute) Acute kidney injury superimposed on CKD (Acute) Pneumonia (Acute) 1. AIDEN on end-stage renal disease secondary to glomerulonephritis-renal function has been steadily worsening. Nephrology consulted. Patient currently declining dialysis. Discussed transition to palliative/hospice, patient would like to further discuss with her family. Creatinine mildly improved with IV fluids. Trend BMP. Previously on azathioprine, no longer taking. 2. Acute on chronic anemia/anemia of chronic disease-additional unit PRBC ordered. Trend CBC. 3. Recent staph aureus right lower lobe empyema-transfer to tertiary facility for further management. 4. Paroxysmal atrial fibrillation-on Eliquis, metoprolol. 5. Hypertension-continue metoprolol. 6. GERD-continue PPI. 7. Anxiety/depression-on sertraline. DVT prophylaxis-on Eliquis. Discharge planning: Pending further discussion with family regarding treatment versus palliative/hospice. This patient was seen by JS Rob under the supervision of Dr. Holman.
--- NOTE | 2020-10-09 13:54 | CASEMGMT ---
Readmission chart review: Pt was initially admitted to [facility] PCU on 09/15-09/18/20 for AIDEN, possible pna. Pt had a thoracentesis, which then showed empyema and pt was transferred to [facility] at that time. See CM note
--- NOTE | 2020-10-09 13:56 | CASEMGMT ---
Readmission chart review: Pt was initially admitted to [facility] PCU on 09/15-09/18/20 for AIDEN, possible pna. Pt had a thoracentesis, which then showed empyema and pt was transferred to [facility] at that time. See RN ALAN note on 09/16/20. Pt returned to [facility] ED at Dr. Rebollar's recommendation for elevated creatinine and possible new dialysis. Per H&P, Dr. Holman, and Raymundo MIRROR MACHINE FEEDER, Pt does not want to do dialysis at this time but also would like to speak with family regarding same. Pt does have family support and they live next door to pt. CM to follow for any further discharge planning/needs. SStkatalina TENORIO CM
[2020-10-09] MEDS: Metoprolol Tartrate 50 MG Tablet PO (21:37)
[2020-10-10 03:00] VITALS: PULSE 70
[2020-10-10 03:30] VITALS: BP 144/70; PULSE 70; RESP 18; TEMP 36.7; O2SAT 95
[2020-10-10 05:25] LABS: Hematocrit 26.6 % (37-47); Hemoglobin 8.5 g/dL (12.0-15.0); Mean Corpuscular Hgb 31.7 pg (27.0-32.0); Mean Corpuscular Volume 99.3 fL (81-99); Platelet Count 198 K/mm3 (150-450); RBC Distribution Width SD 54.5 fl (35.1-43.9); Red Blood Count 2.68 M/mm3 (4.2-5.4); White Blood Count 6.6 K/mm3 (4.4-11.0)
[2020-10-10 05:44] LABS: Albumin, Serum 1.9 g/dL (3.2-5.0); BUN 74 mg/dL (7-18); BUN/Creat Ratio 16.3 RATIO (10-20); Calcium,Total 7.7 mg/dL (8.5-10.1); Chloride 105 mmol/L (98-107); Creatinine, Serum 4.55 mg/dL (0.55-1.02); EST Glomerular Filtration Rate 10 mL/min (>60); Est Glom Filt Rate - Afr Amer 12 mL/min (>60); Estimated Creatinine Clearance 8.43 ml/min; Glucose 97 mg/dL (74-106); Phosphorus 7.2 mg/dL (2.5-4.9); Potassium 4.3 mmol/L (3.5-5.1); Sodium Level 137 mmol/L (136-145)
[2020-10-10 07:00] VITALS: PULSE 79
--- NOTE | 2020-10-10 07:29 | PN_ITS ---
Patient Problems: Active and Suspected Problems (Last Updated 09/16/20 @ 10:[address] Nazia Roe MD) Acute kidney injury (Acute) Anemia (Acute) Vitals/I&O's: Vital Signs Temp Pulse Resp BP Pulse Ox 98.0 F 70 18 144/70 H 95 10/10/20 03:30 10/10/20 03:30 10/10/20 03:30 10/10/20 03:30 10/10/20 03:30 Oxygen Delivery Method Room Air Weight: 137 lb 2.04 oz Body Mass Index (BMI) 22.8 Finger Stick Blood Glucose 130 Intake and Output for Last 24 Hours 10/08/20 10/09/20 10/10/20 23:59 23:59 23:59 Intake Total 360 / 360 2820 / 2820 50 / 50 Output Total 0 / 0 627 / 627 125 / 125 Balance 360 / 360 2193 / 2193 -75 / -75 Microbiology Past 72 Hours 10/08/20 20:05 Mucosa - Nose SARS-CoV-2 Antigen (Rapid) - Final Laboratory Results 10/08/20 22:04: Crossmatch See Detail 10/08/20 22:04: Crossmatch See Detail 10/09/20 07:40: WBC 5.9, RBC 2.31 L, Hgb 7.4 L, Hct 23.0 L, MCV 99.6 H, MCH 32.0, MCHC 32.2, RDW Std Deviation 54.5 H, RDW Coeff of Obey 15.0 H, Plt Count 224, MPV 8.8, Immature Gran % (Auto) 3.800 H, Neut % (Auto) 69.4, Lymph % (Auto) 12.8 L, [place] % (Auto) 10.1 H, Eos % (Auto) 2.9, Baso % (Auto) 1.0, Absolute Neuts (auto) 4.1, Absolute Lymphs (auto) 0.75 L, Nucleated RBC % 0 10/09/20 07:40: Sodium 136, Potassium 4.6, Chloride 104, Carbon Dioxide 23.0, Anion Gap 9, BUN 76 H, Creatinine 4.69 H, Estim Creat Clear Calc 8.18, Est GFR (MDRD) Af Amer 11 L, Est GFR (MDRD) Non-Af 9 L, BUN/Creatinine Ratio 16.2, Glucose 94, Calcium 7.6 L 10/09/20 11:10: Urine Color Yellow, Urine Clarity Sl. Cloudy, Urine pH 7.0, Ur Specific [place] 1.010, Urine Protein 100 H, Urine Glucose (UA) Normal, Urine Ketones Negative, Urine Occult Blood 250 H, Urine Nitrite Negative, Urine Bilirubin Negative, Urine Urobilinogen Normal, Ur Leukocyte Esterase 100 H, Urine RBC > 100 SEEN, Urine WBC 5-10 SEEN, Ur Squamous Epith Cells 0-5 SEEN, Urine Bacteria 0 SEEN, Urine Mucus 0 SEEN 10/10/20 05:16: WBC 6.6, RBC 2.68 L, Hgb 8.5 L, Hct 26.6 L, MCV 99.3 H, MCH 31.7, MCHC 32.0, RDW Std Deviation 54.5 H, RDW Coeff of Obey 15.0 H, Plt Count 198, MPV 9.0 10/10/20 05:16: Sodium 137, Potassium 4.3, Chloride 105, Carbon Dioxide 24.0, BUN 74 H, Creatinine 4.55 H, Estim Creat Clear Calc 8.43, Est GFR (MDRD) Af Amer 12 L, Est GFR (MDRD) Non-Af 10 L, BUN/Creatinine Ratio 16.3, Glucose 97, Calcium 7.7 L, Phosphorus 7.2 H, Albumin 1.9 L Current Medications Sodium Chloride () 1,000 mls @ 75 mls/hr IV .[id number] [facility] Last Admin: 10/10/20 01:30 Dose: Not Given Documented by: Metoprolol Tartrate (Metoprolol Tartrate 50 Mg Tablet) 50 mg PO BID [facility] Last Admin: 10/09/20 21:37 Dose: 50 mg Documented by: Nutritional Formula (Lactose Free) (Ensure Enlive 120 Ml Liquid) 120 ml PO 4X/DAY [facility] Last Admin: 10/09/20 21:37 Dose: 120 ml Documented by: Ondansetron HCl (Ondansetron 4 Mg/2 Ml Vial) 4 mg IV Q8H PRN PRN PRN Reason: NAUSEA/VOMITING Pantoprazole Sodium (Pantoprazole Sodium 40 Mg Tablet) 40 mg PO DAILY [facility] Last Admin: 10/09/20 09:23 Dose: 40 mg Documented by: Sertraline HCl (Sertraline 50 Mg Tablet) 75 mg PO DAILY [facility] Last Admin: 10/09/20 09:23 Dose: 75 mg Documented by: Sodium Chloride (0.9% Saline Lock 10 Ml Syringe) 10 - 40 ml IV UD PRN PRN Reason: Closed End PICC Flush Last Admin: 10/08/20 23:18 Dose: 10 ml Documented by: Sodium Chloride (0.9 % Nacl (Sterile) Posiflush 10 Ml) 10 - 40 ml IV UD PRN PRN Reason: Port access or dressing change Sodium Chloride (0.9% Saline Lock 10 Ml Syringe) 10 - 40 ml IV UD PRN PRN Reason: SALINE FLUSH STROKE Vital Signs/Narrative: Vital Signs Temp Pulse Resp BP Pulse Ox 10/10/20 03:30 98.0 F 70 18 144/70 H 95 Medical Necessity - Tobacco Use Smoking Status: Never smoker Assessment/Plan All Active Problems (Last Updated 09/16/20 @ 10:[address] Nazia Roe MD) Acute kidney injury (Acute) Anemia (Acute) Acute kidney injury superimposed on CKD (Acute) Pneumonia (Acute)
[2020-10-10 09:10] VITALS: BP 138/60; PULSE 81; RESP 16; TEMP 36.7; O2SAT 97
[2020-10-10 09:11] VITALS: BP 138/60; PULSE 81
[2020-10-10] MEDS: Sertraline 50 MG Tablet 75 MG PO (09:11)
[2020-10-10] MEDS: Metoprolol Tartrate 50 MG Tablet PO (09:11)
[2020-10-10] MEDS: Pantoprazole Sodium 40 MG Tablet PO (09:11)
--- NOTE | 2020-10-10 11:20 | DCINST_ITS ---
- Discharge Diagnoses Current Active Problems: Current Active and Chronic Problems (Last Updated 09/16/20 @ 10:[address] Nazia Roe MD) 1. Acute kidney injury on CKD stage V/ESRD complicated by Hyperkalemia with underlying history of glomerulonephritis 2. Acute on chronic anemia of chronic disease 3. DNR-CC hospice transition, discharge to home with home hospice Additional Co-morbidities: History of recent hospital-acquired pneumonia with right-sided staph aureus parapneumonic effusion PAF Hypertension Anxiety and depression GERD You will use the following diet at home:: Regular Your food should be the consistency of: Regular Your liquids should be the consistency of: Regular/Thin Discharge Activity: - - Activity per patient discretion. Focus ONLY on comfort. Weight Bearing Status: Weight bearing as tolerated Call your doctor if you observe: Uncontrolled pain Instructions: What Is Hospice?, Starting Hospice, Hospice: Understanding and Caring for Delirium, Hospice: Understanding and Caring for Dyspnea, Hospice: The Importance of Managing Pain Additional Instructions: Home medications may be discontinued or altered per home hospice discretion. Allergies/Adverse Reactions: Allergies Tetanus Vaccines and Toxoid [Tetanus Vaccines & Toxoid] Allergy (Verified 09/15/20 11:10) Unknown HORSE SERUM TETANUS Medications to take at Discharge azathioprine 50 mg tablet 50 mg PO DAILY@0800 #90 tab 06/05/19 pantoprazole 40 mg tablet,delayed release 40 mg PO DAILY #90 tab 06/30/20 Sertraline HCl [Zoloft] 75 mg PO DAILY 09/15/20 Apixaban [Eliquis] 2.5 mg PO BID 10/08/20 Metoprolol Tartrate 50 mg PO Q8H 10/08/20 Primary Care Physician: Mike Pat DO [Primary Care Provider] - Please follow up with your Primary Care Physician in: No follow-up necessiary w/ Hospice transition. May follow w/ hospice only. Test Results: Test results from this visit will be discussed in further detail at your follow- up appointment, if applicable. Please Follow Up With: [facility] When: Home hospice will be set-up. Contact your hospice nurse if concerns. Please Follow Up With: Ana Rebollar DO When: No follow-up necessiary w/ Hospice transition. May follow w/ hospice only. Proposed Discharge Date: 10/10/20
--- NOTE | 2020-10-10 11:24 | PCM.DC.SUM ---
Discharge Date and Diagnosis - Problem List Patient Problems: Active and Suspected Problems (Last Updated 09/16/20 @ 10:[address] Nazia Roe MD) Acute kidney injury (Acute) Anemia (Acute) Date of Admission: 10/08/20 Date of Discharge: 10/10/20 - Primary Discharge Diagnosis Acute Problems: Active Problems (Last Updated 09/16/20 @ 10:[address] Nazia Roe MD) 1. Acute kidney injury on CKD stage V/ESRD complicated by Hyperkalemia with underlying history of glomerulonephritis 2. Acute on chronic anemia of chronic disease 3. History of recent hospital-acquired pneumonia with right-sided staph aureus parapneumonic effusion 4. PAF 5. Hypertension 6. Anxiety and depression 7. GERD - Secondary Discharge Diagnosis Chronic Problems: Chronic Problems (Last Updated 09/16/20 @ 10:[address] Nazia Roe MD) Stage 4 chronic kidney disease (Chronic) Left-sided tinnitus (Chronic) Vertigo (Chronic) Anxiety (Chronic) Hypertension (Chronic) Hypertension (Chronic) Glomerulonephritis (Chronic) Hospital Course and Treatment Operations: None Procedures: Blood transfusion, EKG Summary of Care Provided: The patient is a 84 y/o F w/ PMHx: CKD stage V/ESRD, PAF on eliquis outpatient, HTN, AOCD, GERD, Anxiety and Depression, Recent Complicated/Prolonged HCAP with RLL Staph aureus empyema who presented to the [facility] ED on 10/08/20 w/ history of worsening renal function reportedly sent in for her manganese wheeler however discussions with her manganese wheeler confirm that it was potentially another physician, possibly infectious disease who referred her to the ED with recent discharge from tertiary facility with right-sided healthcare associated pneumonia treated at that time with IV vancomycin and Zosyn with development of parapneumonic effusion requiring thoracentesis with acute kidney injury on chronic kidney disease at that time. Admission BUN/Cr 78/4.99, potassium initially 5.3, prior baseline creatinine noted to be 3.29 on 09/18/2020 however patient's renal function has steadily been worsening especially since recent complicated pneumonia treatment. Previously on azathioprine however this was supposed to be discontinued per discussion with patient's manganese wheeler, Dr. Rebollar secondary to worsening renal function and anemia. Patient admitted to the PCU given potassium level, Kayexalate given with repeat potassium 4.6, judiciously hydrated given history and 1 unit PRBC administered per request of patient's manganese wheeler given admission hemoglobin 10/08/2020 6.9, repeat 10/10/2020 hemoglobin 8.5, 10/10/2019 1 repeat CMP with potassium 4.3, BUN/creatinine 74/4.55. Patient very adamant about avoiding any continued discussions regarding dialysis initiation. Discussed patient's presentation and life goals at length and decision following 10/10/2020 hospice meeting with patient and her family to transition to hospice at home. Patient was discharged to home hospice with no obvious evidence of any discomfort or any acute complaints requiring medications at discharge time. DAY OF DISCHARGE PROGRESS NOTE: Subjective: Patient without acute event overnight per self and nursing report. Patient remains fatigued but denies any acute complaints. She notes feeling improved since ED presentation. She continues to decline any dialysis consideration and is amenable to hospice at home transition. Patient denies fever, chills, nausea, emesis, abdominal pain, chest pain or dyspnea. Patient will be discharged with follow-up with home hospice. Objective: T 98.1, heart rate 81, BP 130/60, respiratory rate 16, 97% on room air. Physical Examination: General: awake, alert, oriented x 3 and cooperative, seated upright in the PCU bedside chair, mildly fatigued but improved from day prior. Skin: normal color, turgor, no icterus, cyanosis. HEENT: AT/NC, EOMI, PERRLA, improved MMM. Lungs: Diminished breath sounds, greater bases, mild decrease, no rales, ronchi or wheezing. Heart: Regular rate and rhythm; no gallop, rub audible. Abdomen: soft, NTTP, ND, normal BS. Extremities: no cyanosis, clubbing, or edema. Neurological: patient awake, alert, oriented as noted; cognitive function baseline, complicated by likely overlying depression; pupils equally reactive to light and accomodation; cranial nerves II-XII grossly normal, moving all 4 extremities, no focal deficits, strength mildly to moderately global decrease secondary to acute presentation. Psychiatric: affect appears flat, do suspect some underlying depression and patient does note that she does miss her and that her children are all settled and she feels as though it is her time, requesting hospice transition. Assessment and Plan: Please see hospital summary above. CODE status: Given hospice meeting ensued, discussed CODE status at length including difference between FULL code, DNR-CCA and DNR-CC status. Following discussions about the differences in these status, requested transition from DNR-CCA, no intubation to DNR-CC status with form signed. Daughter present. Advanced Care Planning Face to Face Time: 20 minutes. Patient Problems: Active and Suspected Problems (Last Updated 09/16/20 @ 10:[address] Nazia Roe MD) Acute kidney injury (Acute) Anemia (Acute) - Physical Exam Vitals/I&O's: Vital Signs Temp Pulse Resp BP Pulse Ox 98.1 F 81 16 138/60 H 97 10/10/20 09:10 10/10/20 09:11 10/10/20 09:10 10/10/20 09:11 10/10/20 09:10 Oxygen Delivery Method Room Air Weight: 137 lb 2.04 oz Body Mass Index (BMI) 22.8 Finger Stick Blood Glucose 130 Intake and Output for Last 24 Hours 10/08/20 10/09/20 10/10/20 23:59 23:59 23:59 Intake Total 360 / 360 2820 / 2820 50 / 50 Output Total 0 / 0 627 / 627 125 / 125 Balance 360 / 360 2193 / 2193 -75 / -75 Microbiology Past 72 Hours 10/08/20 20:05 Mucosa - Nose SARS-CoV-2 Antigen (Rapid) - Final Laboratory Results 10/08/20 22:04: Crossmatch See Detail 10/08/20 22:04: Crossmatch See Detail 10/09/20 11:10: Urine Color Yellow, Urine Clarity Sl. Cloudy, Urine pH 7.0, Ur Specific [place] 1.010, Urine Protein 100 H, Urine Glucose (UA) Normal, Urine Ketones Negative, Urine Occult Blood 250 H, Urine Nitrite Negative, Urine Bilirubin Negative, Urine Urobilinogen Normal, Ur Leukocyte Esterase 100 H, Urine RBC > 100 SEEN, Urine WBC 5-10 SEEN, Ur Squamous Epith Cells 0-5 SEEN, Urine Bacteria 0 SEEN, Urine Mucus 0 SEEN 10/10/20 05:16: WBC 6.6, RBC 2.68 L, Hgb 8.5 L, Hct 26.6 L, MCV 99.3 H, MCH 31.7, MCHC 32.0, RDW Std Deviation 54.5 H, RDW Coeff of Obey 15.0 H, Plt Count 198, MPV 9.0 10/10/20 05:16: Sodium 137, Potassium 4.3, Chloride 105, Carbon Dioxide 24.0, BUN 74 H, Creatinine 4.55 H, Estim Creat Clear Calc 8.43, Est GFR (MDRD) Af Amer 12 L, Est GFR (MDRD) Non-Af 10 L, BUN/Creatinine Ratio 16.3, Glucose 97, Calcium 7.7 L, Phosphorus 7.2 H, Albumin 1.9 L Current Medications Sodium Chloride () 1,000 mls @ 75 mls/hr IV .[id number] [facility] Last Admin: 10/10/20 01:30 Dose: Not Given Documented by: Metoprolol Tartrate (Metoprolol Tartrate 50 Mg Tablet) 50 mg PO BID [facility] Last Admin: 10/10/20 09:11 Dose: 50 mg Documented by: Nutritional Formula (Lactose Free) (Ensure Enlive 120 Ml Liquid) 120 ml PO 4X/DAY [facility] Last Admin: 10/10/20 09:11 Dose: 120 ml Documented by: Ondansetron HCl (Ondansetron 4 Mg/2 Ml Vial) 4 mg IV Q8H PRN PRN PRN Reason: NAUSEA/VOMITING Pantoprazole Sodium (Pantoprazole Sodium 40 Mg Tablet) 40 mg PO DAILY [facility] Last Admin: 10/10/20 09:11 Dose: 40 mg Documented by: Sertraline HCl (Sertraline 50 Mg Tablet) 75 mg PO DAILY [facility] Last Admin: 10/10/20 09:11 Dose: 75 mg Documented by: Sodium Chloride (0.9% Saline Lock 10 Ml Syringe) 10 - 40 ml IV UD PRN PRN Reason: Closed End PICC Flush Last Admin: 10/08/20 23:18 Dose: 10 ml Documented by: Sodium Chloride (0.9 % Nacl (Sterile) Posiflush 10 Ml) 10 - 40 ml IV UD PRN PRN Reason: Port access or dressing change Sodium Chloride (0.9% Saline Lock 10 Ml Syringe) 10 - 40 ml IV UD PRN PRN Reason: SALINE FLUSH Discharge Activity: - - Activity per patient discretion. Focus ONLY on comfort. Weight Bearing Status: Weight bearing as tolerated Call your doctor if you observe: Uncontrolled pain Home Medications: Medications to take at Discharge azathioprine 50 mg tablet 50 mg PO DAILY@0800 #90 tab 06/05/19 pantoprazole 40 mg tablet,delayed release 40 mg PO DAILY #90 tab 06/30/20 Sertraline HCl [Zoloft] 75 mg PO DAILY 09/15/20 Apixaban [Eliquis] 2.5 mg PO BID 10/08/20 Metoprolol Tartrate 50 mg PO Q8H 10/08/20 Primary Care Physician: Mike Pat DO [Primary Care Provider] - Please follow up with your Primary Care Physician in: No follow-up necessiary w/ Hospice transition. May follow w/ hospice only. Please Follow Up With: [facility] When: Home hospice will be set-up. Contact your hospice nurse if concerns. Please Follow Up With: Ana Rebollar DO When: No follow-up necessiary w/ Hospice transition. May follow w/ hospice only. Patient Instructions: What Is Hospice?, Starting Hospice, Hospice: The Importance of Managing Pain, Hospice: Understanding and Caring for Dyspnea, Hospice: Understanding and Caring for Delirium Disposition: Home with Hospice Minutes spent on discharge:: 35 Patient Condition:: Stable Medical Necessity - Tobacco Use Smoking Status: Never smoker Meaningful Use Info Meaningful Use Diagnoses (Choose all that apply): None applicable Inpatient E&M: 43069 Disch Hosp Procedures: 33133 Advncd Care Plan 30 Min
--- NOTE | 2020-10-10 11:47 | CON.PCM_ITS ---
Consultation - Renal 10/10/20 PCP/ Referring MD: Requesting physician: [] Primary care physician: Dr. 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 She had creatinine of 4.9 on admit. She was at her ID appt who was concerned about her change in renal function and suggested admit. Hgb was low at 6.9g on admit s/p 2u prbc. She was taken off azathiaprine in August when she had her pneumonia. She does not recall black stools. She does not want chronic dialysis and expressed that in the past prior to current admit. Family has decided on hospice. Currently denies nausea, vomiting, but has anorexia. No fever, chills, cough or SOB. Pt dtr at bedside states she has been eating better at home. - Allergies Allergies: Allergies Tetanus Vaccines and Toxoid [Tetanus Vaccines & Toxoid] Allergy (Verified 09/15 11:10) Unknown HORSE SERUM TETANUS - Current Medications Current Medications: Current Medications Sodium Chloride () 1,000 mls @ 75 mls/hr IV .[id number] [facility] Last Admin: 10/10/20 01:30 Dose: Not Given Documented by: Metoprolol Tartrate (Metoprolol Tartrate 50 Mg Tablet) 50 mg PO BID [facility] Last Admin: 10/10/20 09:11 Dose: 50 mg Documented by: Nutritional Formula (Lactose Free) (Ensure Enlive 120 Ml Liquid) 120 ml PO 4X/DAY [facility] Last Admin: 10/10/20 09:11 Dose: 120 ml Documented by: Ondansetron HCl (Ondansetron 4 Mg/2 Ml Vial) 4 mg IV Q8H PRN PRN PRN Reason: NAUSEA/VOMITING Pantoprazole Sodium (Pantoprazole Sodium 40 Mg Tablet) 40 mg PO DAILY [facility] Last Admin: 10/10/20 09:11 Dose: 40 mg Documented by: Sertraline HCl (Sertraline 50 Mg Tablet) 75 mg PO DAILY [facility] Last Admin: 10/10/20 09:11 Dose: 75 mg Documented by: Sodium Chloride (0.9% Saline Lock 10 Ml Syringe) 10 - 40 ml IV UD PRN PRN Reason: Closed End PICC Flush Last Admin: 10/08/20 23:18 Dose: 10 ml Documented by: Sodium Chloride (0.9 % Nacl (Sterile) Posiflush 10 Ml) 10 - 40 ml IV UD PRN PRN Reason: Port access or dressing change Sodium Chloride (0.9% Saline Lock 10 Ml Syringe) 10 - 40 ml IV UD PRN PRN Reason: SALINE FLUSH - Past Medical History Past Medical History (Chronic Problems): Chronic Problems (Last Updated 09/16/20 @ 10:[address] Nazia Roe MD) Stage 4 chronic kidney disease (Chronic) Left-sided tinnitus (Chronic) Vertigo (Chronic) Anxiety (Chronic) Hypertension (Chronic) Hypertension (Chronic) Glomerulonephritis (Chronic) - Past Surgical History Surgical History: appendectomy, cholecystectomy, herniorrhaphy - right heniorrhaphy, hysterectomy, - - renal bx 02/2014 - Social History Smoking Status: Never smoker - Family History Paternal History Items: Heart Disease Maternal History Items: Heart Disease - at age 54 years Review of Systems Constitutional: Reports: Anorexia, Weakness. Denies: Chills, Fever Cardiovascular: Denies: Chest Pain Respiratory: Denies: Cough, Shortness of Breath Gastrointestinal: Denies: Abdominal Pain, Hematochezia, Nausea, Melena, Vomiting Genitourinary: Denies: Dysuria Neurological: Reports: - - gen weakness, using walker Hematologic/ Lymphatic: Reports: Anemia Patient Problems: Active and Suspected Problems (Last Updated 09/16/20 @ 10:[address] Nazia pittman MD) Acute kidney injury (Acute) Anemia (Acute) - Physical Exam Vitals/I&O's: Vital Signs Temp Pulse Resp BP Pulse Ox 98.1 F 81 16 138/60 H 97 10/10/20 09:10 10/10/20 09:11 10/10/20 09:10 10/10/20 09:11 10/10/20 09:10 Oxygen Delivery Method Room Air Weight: 62.2 kg Body Mass Index (BMI) 22.8 Finger Stick Blood Glucose 130 Intake and Output for Last 24 Hours 10/08/20 10/09/20 10/10/20 23:59 23:59 23:59 Intake Total 360 / 360 2820 / 2820 50 / 50 Output Total 0 / 0 627 / 627 125 / 125 Balance 360 / 360 2193 / 2193 -75 / -75 General: Alert, Oriented x3, Cooperative, - - gen weakness Oral: Dry Mucosa Lungs: Clear to auscultation, Diminished Cardiovascular: Regular rate, No rub noted Abdomen: Bowel Sounds Present, Soft, Non Tender, Non-Distended Extremities: No edema Psych/Mental Status: Normal Affect, Appropriate, Alert and oriented to time, place, person, mood and affect Microbiology Past 72 Hours 10/08/20 20:05 Mucosa - Nose SARS-CoV-2 Antigen (Rapid) - Final Laboratory Results 10/08/20 22:04: Crossmatch See Detail 10/08/20 22:04: Crossmatch See Detail 10/09/20 11:10: Urine Color Yellow, Urine Clarity Sl. Cloudy, Urine pH 7.0, Ur Specific [place] 1.010, Urine Protein 100 H, Urine Glucose (UA) Normal, Urine Ketones Negative, Urine Occult Blood 250 H, Urine Nitrite Negative, Urine Bilirubin Negative, Urine Urobilinogen Normal, Ur Leukocyte Esterase 100 H, Urine RBC > 100 SEEN, Urine WBC 5-10 SEEN, Ur Squamous Epith Cells 0-5 SEEN, Urine Bacteria 0 SEEN, Urine Mucus 0 SEEN 10/10/20 05:16: WBC 6.6, RBC 2.68 L, Hgb 8.5 L, Hct 26.6 L, MCV 99.3 H, MCH 31.7, MCHC 32.0, RDW Std Deviation 54.5 H, RDW Coeff of [place]bey 15.0 H, Plt Count 198, MPV 9.0 10/10/20 05:16: Sodium 137, Potassium 4.3, Chloride 105, Carbon Dioxide 24.0, BUN 74 H, Creatinine 4.55 H, Estim Creat Clear Calc 8.43, Est GFR (MDRD) Af Amer 12 L, Est GFR (MDRD) Non-Af 10 L, BUN/Creatinine Ratio 16.3, Glucose 97, Calcium 7.7 L, Phosphorus 7.2 H, Albumin 1.9 L Current Medications Sodium Chloride () 1,000 mls @ 75 mls/hr IV .[id number] [facility] Last Admin: 10/10/20 01:30 Dose: Not Given Documented by: Metoprolol Tartrate (Metoprolol Tartrate 50 Mg Tablet) 50 mg PO BID [facility] Last Admin: 10/10/20 09:11 Dose: 50 mg Documented by: Nutritional Formula (Lactose Free) (Ensure Enlive 120 Ml Liquid) 120 ml PO 4X/DAY [facility] Last Admin: 10/10/20 09:11 Dose: 120 ml Documented by: Ondansetron HCl (Ondansetron 4 Mg/2 Ml Vial) 4 mg IV Q8H PRN PRN PRN Reason: NAUSEA/VOMITING Pantoprazole Sodium (Pantoprazole Sodium 40 Mg Tablet) 40 mg PO DAILY [facility] Last Admin: 10/10/20 09:11 Dose: 40 mg Documented by: Sertraline HCl (Sertraline 50 Mg Tablet) 75 mg PO DAILY [facility] Last Admin: 10/10/20 09:11 Dose: 75 mg Documented by: Sodium Chloride (0.9% Saline Lock 10 Ml Syringe) 10 - 40 ml IV UD PRN PRN Reason: Closed End PICC Flush Last Admin: 10/08/20 23:18 Dose: 10 ml Documented by: Sodium Chloride (0.9 % Nacl (Sterile) Posiflush 10 Ml) 10 - 40 ml IV UD PRN PRN Reason: Port access or dressing change Sodium Chloride (0.9% Saline Lock 10 Ml Syringe) 10 - 40 ml IV UD PRN PRN Reason: SALINE FLUSH Assessment/Plan All Active Problems (Last Updated 09/16/20 @ 10:[address] Nazia Roe MD) Acute kidney injury (Acute) Anemia (Acute) Acute kidney injury superimposed on CKD (Acute) Pneumonia (Acute) 1. Progressive renal failure. Creatinine 4.55 eGFR 10cc./min. 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 Pt does not want dialysis. Hospice appropriate. Will sign off. Spoke with pt and pt dtr at bedside. 2. FTT 3. Anemia hgb 6.9g suspect from chronic medical condition, iron def anemia s/p 2u prbc. 4. HTn stable DW hospitalist
--- NOTE | 2020-10-10 12:22 | CASEMGMT ---
Hospice spoke with patient and her daughter. They agreed to Hospice at home. SW spoke with patient and her daughter and they confirmed this plan. They will transport patient home. Patient's son will be coming in to help transport her home. She did not know a time yet. They have all the equipment they need. SW will fax d/c information to Hospice as well as let them know d/c time when SW knows. Plan: d/c home with [facility]. Domenica NARVAEZ MSW
[2020-10-10 13:00] VITALS: BP 185/78; PULSE 75; RESP 18; TEMP 36.5; O2SAT 97
--- NOTE | 2020-10-10 14:00 | CASEMGMT ---
Patient's son is on his way to crop picker patient. SW faxed d/c information to Hospice. SW also called Hospice and let them know patient was leaving as soon as her son gets here. They asked if physician could write for comfort meds to get her through until tomorrow when they would get out to see patient. SW notified physician. Domenica NARVAEZ MSW
--- NOTE | 2020-10-10 14:12 | NURSING ---
Report called to [facility].
== END 2020-10-10 14:02 | disposition hospice, home (50) | DRG 683 ==
LOC: ED 20:00 → PCU 20:10
PROVIDERS: Internal Medicine Nephrology; Admitting Provider Student in an Organized Health Care Education/Training Program; Emergency Provider Emergency Medicine; PCP Family Medicine; Visit Provider Family Medicine
DX: N17.9 Acute kidney failure, unspecified (principal); I12.0 Hypertensive chronic kidney disease with stage 5 chronic kidney disease or end stage renal disease; J98.11 Atelectasis; E87.5 Hyperkalemia; N18.6 End stage renal disease; D63.8 Anemia in other chronic diseases classified elsewhere; I48.0 Paroxysmal atrial fibrillation; K21.9 Gastro-esophageal reflux disease without esophagitis; F32.9 Major depressive disorder, single episode, unspecified; F41.9 Anxiety disorder, unspecified; R62.7 Adult failure to thrive; D50.9 Iron deficiency anemia, unspecified; Z66 Do not resuscitate; Z79.01 Long term (current) use of anticoagulants; Z79.899 Other long term (current) drug therapy; Z90.710 Acquired absence of both cervix and uterus; Z87.448 Personal history of other diseases of urinary system; Z87.01 Personal history of pneumonia (recurrent)
CPT/HCPCS: 36415; 36592; 71045; 80048; 80053; 80069; 81001; 83880; 84484; 85025; 85027; 86850; 86900; 86901; 86920; 86922; 87426; 93005; 97162; 97166; 97530; 97535; 97802; 99283; J7030; P9016; A4216